=== PATIENT | female | born 1950 | race Caucasian/White ===

== ENCOUNTER → 2016-11-26 | Outpatient (CLI) | payer BC, OTHER ==
[~2016-11-26] MED LIST: ASPI81TA21 PO; CALCTAB7 PO; CHOL100027 PO; KONSYL FIBER PO; MOME50SP5; MULTTAB58 PO; TRAZ50TA35 PO; actonel PO
--- NOTE | 2016-11-26 15:58 | DIAGNOSTIC IMAGING REPORT ---
LEFT HAND 3 VIEWS CLINICAL HISTORY: Raynaud's disease. FINDINGS: 3 views of the left hand are compared to study dated 11/20/2014. The skeletal structures are osteopenic. No fracture is identified. Minimal osteoarthritic change is identified involving the distal interphalangeal joints. The joint spaces of the hand are otherwise preserved. No bony erosion is identified. The overlying soft tissues are within normal limits. IMPRESSION: Osteopenia with minimal arthritic change as above. No acute bony abnormality is identified. Electronically signed by: Shashi Carroll M.D. 11/26/2016 3:56 PM Dictated Date/Time: 11/26/2016 3:54 PM
--- NOTE | 2016-11-26 15:59 | DIAGNOSTIC IMAGING REPORT ---
RIGHT HAND 3 VIEWS CLINICAL HISTORY: Raynaud's disease. FINDINGS: 3 views of the right hand are obtained. No prior studies are available for comparison at the time of dictation. The skeletal structures are osteopenic. No fracture is identified. Minimal osteoarthritic change is identified involving the distal interphalangeal joints and the first metacarpophalangeal joint. The joint spaces of the hand are otherwise preserved. No bony erosion is identified. The overlying soft tissues are within normal limits. IMPRESSION: Osteopenia with minimal arthritic change as above. No acute bony abnormality is identified. Electronically signed by: Shashi Carroll M.D. 11/26/2016 3:57 PM Dictated Date/Time: 11/26/2016 3:56 PM
== END | disposition home or self-care (01) ==
LOC: C.RAD1850 15:42
PROVIDERS: ATTEND Internal Medicine Rheumatology
DX: I73.00 Raynaud's syndrome without gangrene (principal)

== ENCOUNTER → 2017-03-01 | Outpatient (CLI) | payer BC ==
--- NOTE | 2017-03-01 10:50 | DIAGNOSTIC IMAGING REPORT ---
L-SPINE MIN 4 VIEWS ROUTINE CLINICAL HISTORY: LOWER BACK PAIN COMPARISON STUDY: 06/08/2007 FINDINGS: Minor superior endplate deformities are felt to be old. No acute fractures are visualized. There is a grade 1 spondylolisthesis of L3 on L4. No destructive lesions are evident. IMPRESSION: 1. Grade 1 spondylolisthesis of L3 on L4 2. No acute fractures identified on conventional radiographic imaging Electronically signed by: Casey Queen M.D. 03/01/2017 10:48 AM Dictated Date/Time: 03/01/2017 10:47 AM
== END | disposition home or self-care (01) ==
LOC: C.RAD1850 10:14
PROVIDERS: ATTEND Family Medicine
DX: M54.5 Low back pain (principal); M81.0 Age-related osteoporosis without current pathological fracture; M43.16 Spondylolisthesis, lumbar region

== ENCOUNTER → 2017-07-15 | Outpatient (CLI) | payer BC, OTHER | END | disposition home or self-care (01) | LOC: C.MAMM 09:22 | PROVIDERS: ATTEND Internal Medicine Endocrinology, Diabetes & Metabolism | DX: M81.0 Age-related osteoporosis without current pathological fracture (principal) ==

== ENCOUNTER → 2017-10-13 | Outpatient (CLI) | payer BC, OTHER ==
--- NOTE | 2017-10-14 07:54 | MAMMOGRAPHY REPORT ---
BILATERAL DIGITAL SCREENING MAMMOGRAM TOMOSYNTHESIS WITH CAD: 10/13/2017 CLINICAL HISTORY: Routine screening. Patient has no complaints. TECHNIQUE: Breast tomosynthesis in addition to standard 2D mammography was performed. Current study was also evaluated with a Computer Aided Detection (CAD) system. COMPARISON: Comparison is made to exams dated: 09/09/2016 mammogram, 08/08/2015 mammogram, 06/15/2014 ma mmogram, 06/14/2013 mammogram, 05/24/2012 mammogram, and 05/19/2011 mammogram - [facility]. BREAST COMPOSITION: There are scattered areas of fibroglandular density in both breasts. FINDINGS: The parenchymal pattern is similar to prior mammograms. No developing mass, architectural distortion or cluster of suspicious microcalcifications is seen in either breast. IMPRESSION: ACR BI-RADS CATEGORY 2: BENIGN There is no mammographic evidence of malignancy. A 1 year screening mammogram is recommended. The pa tient will receive written notification of the results. Approximately 10% of breast cancers are not detected with mammography. A negative mammographic report should not delay biopsy if a clinically suggestive mass is present. Adriana Harmon M.D. ay/:10/13/2017 16:32:06 Endodontist: Kelly PERALES(Alexander)(Carissa), [facility] letter sent: Normal 1/2 BI-RADS Code: ACR BI-RADS Category 2: Benign
== END | disposition home or self-care (01) ==
LOC: C.MAMM 16:03
PROVIDERS: ATTEND Family Medicine
DX: Z12.31 Encounter for screening mammogram for malignant neoplasm of breast (principal)

== ENCOUNTER → 2017-10-19 | Day surgery (SDC) | payer BC, OTHER ==
[~2017-10-19] VITALS: Ht 162.6 cm; Wt 54.5 kg
[~2017-10-19] MED LIST changes: +CYAN100073; +GENERAL ORDER PROBLEM SCH; +HYDR12.55 PO; +VITACAP26; +ZOLEDRONIC ACID INJ 5 MG in EMPTY BAG 0 ML IV SCH; -actonel PO
[2017-10-19 15:04] VITALS: BP 112/77; PULSE 66; TEMP 36.3; O2SAT 93; Ht 162.6 cm; Wt 54.5 kg
== END | disposition home or self-care (01) ==
LOC: C.MTU 14:57
PROVIDERS: ATTEND Internal Medicine Endocrinology, Diabetes & Metabolism
DX: M81.0 Age-related osteoporosis without current pathological fracture (principal)

== ENCOUNTER → 2017-12-03 | Outpatient (CLI) | payer OTHER ==
[~2017-12-03] MED LIST changes: -GENERAL ORDER PROBLEM SCH; -KONSYL FIBER PO; +OPTIRAY 320 IV PRN; -ZOLEDRONIC ACID INJ 5 MG in EMPTY BAG 0 ML IV SCH
--- NOTE | 2017-12-03 12:43 | DIAGNOSTIC IMAGING REPORT ---
CT SCAN OF THE ABDOMEN AND PELVIS WITH IV CONTRAST CLINICAL HISTORY: Generalized abdominal pain. COMPARISON STUDY: Abdominal CT dated 11/21/2014. TECHNIQUE: Following the IV administration of 95 cc of Optiray 320, CT scan of the abdomen and pelvis is performed from the lung bases to the proximal femora. Images are reviewed in the axial, sagittal, and coronal planes. IV contrast was administered without complication. A dose lowering technique was utilized adhering to the principles of ALARA. CT DOSE: 291.50 mGycm FINDINGS: Lung bases: The heart is normal in size and without pericardial effusion. A 3 mm left lower lobe pulmonary nodule on image #13 is unchanged dating back to 2014 and of doubtful significance. The lung bases are otherwise clear noting dependent atelectasis. Liver: The contrast-enhanced liver is normal in size, contour, and attenuation. There is no intrahepatic biliary ductal dilatation. The hepatic veins and portal veins are patent. A subcentimeter hypodensity in the right lobe of liver on image #144 likely represents a cyst but is too small for definitive characterization. This was also seen in 2015. Gallbladder: Unremarkable. Spleen: Normal in size and attenuation. Pancreas: Unremarkable. Adrenal glands: Unremarkable. Kidneys: The contrast enhanced kidneys are normal in size and without hydronephrosis. The kidneys enhance symmetrically. Abdominal vasculature: The abdominal aorta is normal in course and caliber noting mild atherosclerotic calcification. Bowel: There is moderate sigmoid diverticulosis. There is wall thickening with pericolonic inflammation and fluid seen involving the proximal sigmoid colon consistent with acute diverticulitis. No evidence of abscess is seen. Moderate colonic fecal retention is observed. No bowel obstruction is identified. The appendix is well-visualized and normal. Peritoneum: There is no intraperitoneal free air or abdominal ascites. Lymphadenopathy: None. Pelvic viscera: The bladder, uterus, and adnexa are normal as visualized. A small volume of free fluid is present in the cul-de-sac. Skeletal structures: The skeletal structures are osteopenic. Mild lumbosacral spondylosis is observed. No lytic or blastic lesions are seen. IMPRESSION: 1. Colonic diverticulosis with evidence of acute sigmoid diverticulitis. 2. No intraperitoneal free air is seen and there is no evidence of abscess. 3. A small volume of free fluid in the cul-de-sac is likely on a reactive basis. 4. Additional findings as above. Electronically signed by: Shashi Carroll M.D. 12/03/2017 12:42 PM Dictated Date/Time: 12/03/2017 12:36 PM
== END | disposition home or self-care (01) ==
LOC: C.CTS 11:34
PROVIDERS: ATTEND Family Medicine
DX: K57.30 Diverticulosis of large intestine without perforation or abscess without bleeding (principal)

== ENCOUNTER 2022-08-04 02:49 | Inpatient (IN) ==
[2022-08-04 03:37] LABS: Appearance Urine Cloudy (Clear); Bacteria Urine Automated Negative (Negative); Bilirubin Urine Negative (Negative); Blood Urine Trace (Negative); Cast Urine Automated 0 /lpf (0-5); Color Urine Yellow; Epithelial Cell Urine Auto 20-30 /lpf (0-5); Glucose Urine UA Negative (Negative); Ketones Urine Trace (Negative); Leukocyte Esterase Urine Trace (Negative); Nitrite Urine Negative (Negative); RBC Urine Automated 0-4 /hpf (0-4); Specific Gravity Urine 1.011 (1.000-1.030); Urobilinogen Urine Negative (Negative); pH Urine 7.5 (4.5-7.5)
[2022-08-04 03:39] LABS: Protein Urine Trace (Negative)
[2022-08-04 03:51] LABS: POC Urine Bilirubin 1+ (Negative); POC Urine Blood 50 (Negative); POC Urine Glucose Normal (Normal); POC Urine Ketones 1+ (Small) (Negative); POC Urine Leukocytes Trace (Negative); POC Urine Nitrite Negative (Negative); POC Urine Protein Trace (Negative); POC Urine Urobilinogen Normal (Normal); POC Urine pH 6 (4.5-7.5)
[2022-08-04 04:12] LABS: Basophils # (auto) 0.03 K/uL (0-0.2); Basophils % (auto) 0.4 %; Eosinophils # (auto) 0.02 K/uL (0-0.50); Eosinophils % (auto) 0.3 %; Hematocrit (blood only) 30.6 % (34.1-44.9); Hemoglobin 10.7 g/dl (12.0-16.0); Immature Granulocytes # (auto) 0.02 K/uL (0.00-0.02); Immature Granulocytes % (auto) 0.3 %; Lymphocytes # (auto) 0.51 K/uL (1.2-3.4); Lymphocytes % (auto) 7.2 %; Mean Corpuscular Hemoglobin 29.7 pg (25.0-34.0); Mean Platelet Volume 8.7 fL (9.4-12.3); Monocytes # (auto) 0.67 K/uL (0.24-0.82); Monocytes % (auto) 9.5 %; Neutrophils # (auto) 5.81 K/uL (1.4-6.5); Neutrophils % (auto) 82.3 %; Platelet Count 169 K/uL (130-400); RDW Coefficient of Variation 12.6 % (11.5-14.5); White Blood Count 7.06 K/ul (4.8-10.8)
[2022-08-04] MEDS ORDERED: ACETAMINOPHEN 325 MG TAB PO STA (04:25)
[2022-08-04 04:36] LABS: Albumin Level 3.7 gm/dl (3.4-5.0); BUN Creatinine Ratio 11.2 (10-20); Bilirubin Direct 0.1 mg/dl (0-0.2); Bilirubin,Total 0.5 mg/dl (0.2-1.0); Calcium 8.6 mg/dl (8.5-10.1); Creatinine Clr Calc Pharmacy 47.5 ml/min; Est GFR (African American) 76.1 ml/min; Est GFR (Non-African American) 65.7 ml/min; Magnesium 1.9 mg/dl (1.7-2.4); Potassium 4.1 mmol/L (3.5-5.1); Total Protein 6.9 gm/dl (6.0-8.3)
[2022-08-04 04:41] LABS: Troponin I High Sensitivity 4.9 pg/ml (0-14)
[2022-08-04] MEDS ORDERED: SODIUM CHLORIDE 0.9% 1000ML 1,000 ML IV ONE (05:20)
[2022-08-04] MEDS ORDERED: cefTRIAXone SODIUM 1,000 MG/50 ML BAG IV STA (05:26)
--- NOTE | 2022-08-04 07:14 | Emergency Department Note ---
Impression & Plan Acute hyponatremia, Cystitis Admit to the [facility] ED Provider Note NAME: YANELI HAILE AGE: 72 SEX: F ARRIVES VIA: Walk-In INFORMANT: Patient and her ED PROVIDER(S): Ana Mendoza DO CHIEF COMPLAINT: Back pain and fever PLAN: Disposition: Admit to the [facility] Condition: Stable MEDICAL DECISION MAKING: This is a 72-year-old female patient who was diagnosed with a urinary tract infection who presents emergency department with backache and fever. Preliminary urine culture grew out greater than 100,000 colonies of lactose fermenting gram-negative bacilli. Patient has had a total of 4 doses of Bactrim. She presents to the emergency department with a fever. She has no leukocytosis and lactate and procalcitonin were normal but CT scan shows evidence of cystitis with signs of infection in ascending the left ureter. The patient received a dose of IV Rocephin. She was noted to be hypotensive but states that her blood pressure is typically in the high 90s and low 100s. The patient was noted to be hyponatremic and received a 1500 cc bolus of normal saline solution and was placed on a normal saline drip. I discussed the case with the [facility] and they will evaluate for further management. Triage Nursing notes reviewed and agree with them. Additional history obtained from the patient's who is at the bedside Vital Signs: reviewed and remarkable for no significant abnormalities Differential diagnosis: Sepsis, cystitis, pyelonephritis, ureteral colic ER treatment provided: IV Rocephin Oral Tylenol IV normal saline bolus IV normal saline drip Diagnostics interpreted by me: Cardiac Monitoring: Normal sinus rhythm at 85 Laboratory studies: See below Imaging studies: As per radiology CT scan of the abdomen pelvis: See radiology report HPI: 72/F arrives for evaluation of back pain and fever. Patient was diagnosed 2 days ago with UTI and started on Bactrim. He has had 4 total doses of the Bactrim but presents with left-sided back pain and persistent fever. Patient also complains of nausea and decreased appetite. ROS: See above HPI for pertinent positives & negatives. A total of 10 systems reviewed and were otherwise negative. PAST MEDICAL HISTORY:See Below PAST SURGICAL HISTORY:See Below FAMILY HISTORY:See Below SOCIAL HISTORY:See Below HOME MEDICATIONS:See list ALLERGIES:See list VITALS:See Below PHYSICAL EXAMINATION: HEENT: Head - normocephalic and atraumatic Pupils are equal, round, and reactive to light. Extraocular eye muscles are intact, and sclera are anicteric. Nose - moist nasal mucosa without discharge. Mouth - moist buccal mucosa. Oropharynx is nonerythematous and there is no tonsillar exudate or edema noted. Neck: Supple; no cervical lymphadenopathy noted Heart: Regular rate and rhythm. There is a normal S1 and S2 with no murmurs, clicks, or gallops appreciated. Lungs: Clear to auscultation bilaterally with no wheezes, rales, or rhonchi. Abdomen: Soft, completely nontender, nondistended, with good bowel sounds. There are no palpable pulsatile masses or hepatosplenomegaly. There is no guarding, rigidity, or rebound noted. Extremities: No evidence of cyanosis, clubbing, or edema. There are easily palpable peripheral pulses. Skin: Pale, warm and dry with good turgor and no rashes. Back: Left-sided back pain is greater than the right ED COURSE: Times/Reassessments: 430: The patient was evaluated in room C10. A complete history and physical was performed. A septic protocol was performed. Patient was bolused with 1 L of normal saline solution wide open. An order was placed for continuous cardiac monitoring. The patient was in a normal sinus rhythm at a rate of 85. She was given a dose of oral Tylenol. She was given a dose of IV Rocephin. The patient went for CT scan of the abdomen/pelvis as described above. She was given another 500 cc of normal saline solution wide open as she was hyponatremic and started on a normal saline drip. I discussed the case with the [facility] Hospitalist. Ana Mendoza DO Past Med/Surg History Medical History (Updated 08/04/22 @ 15:52 by Ana Mendoza DO) Age related osteoporosis Back problem HERNIATED DISC LUMBAR SPINE Chronic obstructive pulmonary disease "MILD" History of uterine cancer Mild asthma with allergic rhinitis without complication Raynaud disease Vitamin D deficiency Surgical History History of colonoscopy History of D&C History of tooth extraction Hx of total hysterectomy with removal of both tubes and ovaries uterine cancer, surgical intervention only Family History Mother Breast cancer Brother Family history of diabetes mellitus Sister Family history of colon cancer Other No family history of adverse response to anesthesia Denies family history of Ovarian cancer Colorectal cancer Uterine cancer Social History Smoking Status: Former smoker Second Hand Exposure: Yes ( A CHILD); Hx Alcohol Use: Yes Alcohol type: wine Hx Substance Use: No Preferred Language: Chinese Communication Ability: Effective 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 Verified 01/05/22 07:29 MEDICATION NAME, 1986 - FACE SWOLLEN , HIVES Home Meds Home Medications Medication Instructions Recorded Confirmed aspirin 81 mg tablet,delayed 81 mg PO UD 08/22/19 01/02/22 release (Adult Low Dose Aspirin) cholecalciferol (vitamin D3) 50 2,000 units PO QAM 08/22/19 01/02/22 mcg (2,000 unit) capsule melatonin 5 mg capsule 10 mg PO HS PRN Sleep 08/22/19 01/02/22 multivitamin 1 tab PO DAILY 08/22/19 01/02/22 trazodone 50 mg tablet 50 mg PO HS 08/22/19 01/02/22 cyanocobalamin (vitamin B-12) 1,000 mcg PO QAM 04/23/20 01/02/22 1,000 mcg tablet methylcellulose (laxative) 500 mg 500 mg PO DAILY 02/26/21 01/02/22 tablet (Citrucel) hydrochlorothiazide 12.5 mg tablet 6.25 mg PO QAM 07/01/21 01/02/22 Previous Rx's Medication Instructions Recorded zoledronic acid 5 mg/100 mL in See Rx Instructions IV .COMPLEX 08/31/19 mannitol 5 %-water intravenous #100 mL piggybck (Reclast) fluticasone propionate 115 1 puff inhalation BID #12 grams 05/13/21 mcg-salmeterol 21 mcg/actuation HFA inhaler (Advair HFA) Results & Data (ED) Vital Signs Vital Signs - 24 hr 08/04/22 02:54 08/04/22 04:30 08/04/22 05:00 Temperature 39.5 C H Temperature Source Temporal Artery Scan Pulse Rate 97 H 85 90 Pulse Rate from SpO2 Sensor 85 Respiratory Rate 20 23 20 Respiratory Effort / Characteristics Non-Labored Spontaneous Respiratory Depth Normal Blood Pressure 126/76 104/68 103/73 Blood Pressure Mean 92 80 83 Pulse Oximetry 98 96 96 Oxygen Delivery Method Room Air Room Air Room Air Sepsis Recent Fever Within 48 Hours Yes Sepsis New/Unexplained Change in Mental Status Yes Sepsis Action Taken by Nursing No Action Required 08/04/22 05:26 08/04/22 06:00 08/04/22 06:00 Temperature 37.4 C Temperature Source Oral Pulse Rate 81 87 Pulse Rate from SpO2 Sensor Respiratory Rate 24 23 Respiratory Effort / Characteristics Respiratory Depth Blood Pressure 92/67 L 95/61 L Blood Pressure Mean 75 72 Pulse Oximetry 95 97 Oxygen Delivery Method Room Air Room Air Sepsis Recent Fever Within 48 Hours Sepsis New/Unexplained Change in Mental Status Sepsis Action Taken by Nursing 08/04/22 03:45 08/04/22 07:00 08/04/22 07:00 Temperature Temperature Source Pulse Rate 76 Pulse Rate from SpO2 Sensor Respiratory Rate 24 Respiratory Effort / Characteristics Respiratory Depth Blood Pressure 96/64 L Blood Pressure Mean 74 Pulse Oximetry Oxygen Delivery Method Room Air Sepsis Recent Fever Within 48 Hours Sepsis New/Unexplained Change in Mental Status Sepsis Action Taken by Nursing 08/04/22 07:10 08/04/22 07:20 08/04/22 08:09 Temperature Temperature Source Pulse Rate 77 74 Pulse Rate from SpO2 Sensor 78 76 72 Respiratory Rate 22 21 Respiratory Effort / Characteristics Respiratory Depth Blood Pressure Blood Pressure Mean Pulse Oximetry 96 97 97 Oxygen Delivery Method Room Air Room Air Room Air Sepsis Recent Fever Within 48 Hours Sepsis New/Unexplained Change in Mental Status Sepsis Action Taken by Nursing 08/04/22 08:10 08/04/22 08:11 08/04/22 08:12 Temperature Temperature Source Pulse Rate Pulse Rate from SpO2 Sensor 75 76 Respiratory Rate Respiratory Effort / Characteristics Respiratory Depth Blood Pressure 97/58 L Blood Pressure Mean 71 Pulse Oximetry 98 96 Oxygen Delivery Method Room Air Sepsis Recent Fever Within 48 Hours Sepsis New/Unexplained Change in Mental Status Sepsis Action Taken by Nursing 08/04/22 08:15 08/04/22 08:30 Temperature Temperature Source Pulse Rate Pulse Rate from SpO2 Sensor 73 77 Respiratory Rate Respiratory Effort / Characteristics Respiratory Depth Blood Pressure Blood Pressure Mean Pulse Oximetry 97 98 Oxygen Delivery Method Room Air Room Air Sepsis Recent Fever Within 48 Hours Sepsis New/Unexplained Change in Mental Status Sepsis Action Taken by Nursing Laboratory Data Result diagrams: 08/04/22 04:00 08/04/22 04:00 Lab Results 08/04/22 08/04/22 08/04/22 Range/Units 03:13 03:17 04:00 WBC 7.06 (4.8-10.8) K/ul RBC 3.60 L (3.93-5.22) M/uL Hgb 10.7 L (12.0-16.0) g/dl Hct 30.6 L (34.1-44.9) % MCV 85.0 (80.0-100.0) fL MCH 29.7 (25.0-34.0) pg MCHC 35.0 (32.0-36.0) g/dL RDW Std Deviation 39.0 (36.4-46.3) fL RDW Coeff of [place] 12.6 (11.5-14.5) % Plt Count 169 (130-400) K/uL MPV 8.7 L (9.4-12.3) fL Immature Gran % (Auto) 0.3 % Neut % (Auto) 82.3 % Lymph % (Auto) 7.2 % [place] % (Auto) 9.5 % Eos % (Auto) 0.3 % Baso % (Auto) 0.4 % Neut # (Auto) 5.81 (1.4-6.5) K/uL Lymph # (Auto) 0.51 L (1.2-3.4) K/uL [place] # (Auto) 0.67 (0.24-0.82) K/uL Eos # (Auto) 0.02 (0-0.50) K/uL Baso # (Auto) 0.03 (0-0.2) K/uL Immature Gran # (Auto) 0.02 (0.00-0.02) K/uL Sodium (136-145) mmol/L Potassium (3.5-5.1) mmol/L Chloride (98-107) mmol/L Carbon Dioxide (21-32) mmol/L Anion Gap (3-11) BUN (6-23) mg/dl Creatinine (0.6-1.2) mg/dl Est Cr Clr Drug Dosing ml/min Est GFR ( Amer) ml/min Est GFR (Non-Af Amer) ml/min BUN/Creatinine Ratio (10-20) Glucose (70-99(Fasting)) mg/dl Lactate (0.4-2.0) mmol/L Calcium (8.5-10.1) mg/dl Magnesium (1.7-2.4) mg/dl Total Bilirubin (0.2-1.0) mg/dl Direct Bilirubin (0-0.2) mg/dl AST (13-39) U/L ALT (7-52) U/L Alkaline Phosphatase (34-104) U/L Troponin I High Sens (0-14) pg/ml Total Protein (6.0-8.3) gm/dl Albumin (3.4-5.0) gm/dl Procalcitonin (0-0.5) ng/ml Urine Color Yellow Urine Appearance Cloudy A (Clear) Urine pH 7.5 (4.5-7.5) POC Urine pH 6 (4.5-7.5) Ur Specific Hibbs 1.011 (1.000-1.030) Urine Protein Trace H (Negative) POC Urine Protein Trace H (Negative) Urine Glucose (UA) Negative (Negative) POC Ur Glucose (UA) Normal (Normal) Urine Ketones Trace H (Negative) POC Urine Ketones 1+ (Small) H (Negative) Urine Blood Trace H (Negative) POC Urine Blood 50 H (Negative) Urine Nitrite Negative (Negative) POC Urine Nitrite Negative (Negative) Urine Bilirubin Negative (Negative) POC Urine Bilirubin 1+ H (Negative) Urine Urobilinogen Negative (Negative) POC Urine Urobilinogen Normal (Normal) Ur Leukocyte Esterase Trace H (Negative) POC U Leukocyte Esteras Trace H (Negative) Urine WBC (Auto) 10-30 H (0-5) /hpf Urine RBC (Auto) 0-4 (0-4) /hpf U Hyaline Cast (Auto) 0 (0-5) /lpf U Epithel Cells (Auto) 20-30 H (0-5) /lpf Urine Bacteria (Auto) Negative (Negative) SARS-CoV-2, RNA, NAAT (NEGATIVE) 08/04/22 08/04/22 08/04/22 Range/Units 04:00 04:00 04:00 WBC (4.8-10.8) K/ul RBC (3.93-5.22) M/uL Hgb (12.0-16.0) g/dl Hct (34.1-44.9) % MCV (80.0-100.0) fL MCH (25.0-34.0) pg MCHC (32.0-36.0) g/dL RDW Std Deviation (36.4-46.3) fL RDW Coeff of [place] (11.5-14.5) % Plt Count (130-400) K/uL MPV (9.4-12.3) fL Immature Gran % (Auto) % Neut % (Auto) % Lymph % (Auto) % [place] % (Auto) % Eos % (Auto) % Baso % (Auto) % Neut # (Auto) (1.4-6.5) K/uL Lymph # (Auto) (1.2-3.4) K/uL [place] # (Auto) (0.24-0.82) K/uL Eos # (Auto) (0-0.50) K/uL Baso # (Auto) (0-0.2) K/uL Immature Gran # (Auto) (0.00-0.02) K/uL Sodium 129 L (136-145) mmol/L Potassium 4.1 (3.5-5.1) mmol/L Chloride 102 (98-107) mmol/L Carbon Dioxide 20 L (21-32) mmol/L Anion Gap 7 (3-11) BUN 10 (6-23) mg/dl Creatinine 0.89 (0.6-1.2) mg/dl Est Cr Clr Drug Dosing 47.5 ml/min Est GFR ( Amer) 76.1 ml/min Est GFR (Non-Af Amer) 65.7 ml/min BUN/Creatinine Ratio 11.2 (10-20) Glucose 119 H (70-99(Fasting)) mg/dl Lactate 0.4 (0.4-2.0) mmol/L Calcium 8.6 (8.5-10.1) mg/dl Magnesium 1.9 (1.7-2.4) mg/dl Total Bilirubin 0.5 (0.2-1.0) mg/dl Direct Bilirubin 0.1 (0-0.2) mg/dl AST 53 H (13-39) U/L ALT 38 (7-52) U/L Alkaline Phosphatase 64 (34-104) U/L Troponin I High Sens 4.9 (0-14) pg/ml Total Protein 6.9 (6.0-8.3) gm/dl Albumin 3.7 (3.4-5.0) gm/dl Procalcitonin 0.15 (0-0.5) ng/ml Urine Color Urine Appearance (Clear) Urine pH (4.5-7.5) POC Urine pH (4.5-7.5) Ur Specific Hibbs (1.000-1.030) Urine Protein (Negative) POC Urine Protein (Negative) Urine Glucose (UA) (Negative) POC Ur Glucose (UA) (Normal) Urine Ketones (Negative) POC Urine Ketones (Negative) Urine Blood (Negative) POC Urine Blood (Negative) Urine Nitrite (Negative) POC Urine Nitrite (Negative) Urine Bilirubin (Negative) POC Urine Bilirubin (Negative) Urine Urobilinogen (Negative) POC Urine Urobilinogen (Normal) Ur Leukocyte Esterase (Negative) POC U Leukocyte Esteras (Negative) Urine WBC (Auto) (0-5) /hpf Urine RBC (Auto) (0-4) /hpf U Hyaline Cast (Auto) (0-5) /lpf U Epithel Cells (Auto) (0-5) /lpf Urine Bacteria (Auto) (Negative) SARS-CoV-2, RNA, NAAT (NEGATIVE) 08/04/22 Range/Units 08:36 WBC (4.8-10.8) K/ul RBC (3.93-5.22) M/uL Hgb (12.0-16.0) g/dl Hct (34.1-44.9) % MCV (80.0-100.0) fL MCH (25.0-34.0) pg MCHC (32.0-36.0) g/dL RDW Std Deviation (36.4-46.3) fL RDW Coeff of [place] (11.5-14.5) % Plt Count (130-400) K/uL MPV (9.4-12.3) fL Immature Gran % (Auto) % Neut % (Auto) % Lymph % (Auto) % [place] % (Auto) % Eos % (Auto) % Baso % (Auto) % Neut # (Auto) (1.4-6.5) K/uL Lymph # (Auto) (1.2-3.4) K/uL [place] # (Auto) (0.24-0.82) K/uL Eos # (Auto) (0-0.50) K/uL Baso # (Auto) (0-0.2) K/uL Immature Gran # (Auto) (0.00-0.02) K/uL Sodium (136-145) mmol/L Potassium (3.5-5.1) mmol/L Chloride (98-107) mmol/L Carbon Dioxide (21-32) mmol/L Anion Gap (3-11) BUN (6-23) mg/dl Creatinine (0.6-1.2) mg/dl Est Cr Clr Drug Dosing ml/min Est GFR ( Amer) ml/min Est GFR (Non-Af Amer) ml/min BUN/Creatinine Ratio (10-20) Glucose (70-99(Fasting)) mg/dl Lactate (0.4-2.0) mmol/L Calcium (8.5-10.1) mg/dl Magnesium (1.7-2.4) mg/dl Total Bilirubin (0.2-1.0) mg/dl Direct Bilirubin (0-0.2) mg/dl AST (13-39) U/L ALT (7-52) U/L Alkaline Phosphatase (34-104) U/L Troponin I High Sens (0-14) pg/ml Total Protein (6.0-8.3) gm/dl Albumin (3.4-5.0) gm/dl Procalcitonin (0-0.5) ng/ml Urine Color Urine Appearance (Clear) Urine pH (4.5-7.5) POC Urine pH (4.5-7.5) Ur Specific [place] (1.000-1.030) Urine Protein (Negative) POC Urine Protein (Negative) Urine Glucose (UA) (Negative) POC Ur Glucose (UA) (Normal) Urine Ketones (Negative) POC Urine Ketones (Negative) Urine Blood (Negative) POC Urine Blood (Negative) Urine Nitrite (Negative) POC Urine Nitrite (Negative) Urine Bilirubin (Negative) POC Urine Bilirubin (Negative) Urine Urobilinogen (Negative) POC Urine Urobilinogen (Normal) Ur Leukocyte Esterase (Negative) POC U Leukocyte Esteras (Negative) Urine WBC (Auto) (0-5) /hpf Urine RBC (Auto) (0-4) /hpf U Hyaline Cast (Auto) (0-5) /lpf U Epithel Cells (Auto) (0-5) /lpf Urine Bacteria (Auto) (Negative) SARS-CoV-2, RNA, NAAT NEGATIVE (NEGATIVE) Administered Medications Cyanocobalamin (Cyanocobalamin (B-12) 500 Mcg Tablet) 1,000 mcg PO QAM CHANTELL Stop: 09/03/22 12:59 Last Admin: 08/04/22 13:35 Dose: 1,000 mcg Documented By: CLAUDE Enoxaparin Sodium (Enoxaparin Inj 30 Mg/0.3 Ml Syr) 30 mg SQ Q24H CHANTELL Stop: 09/03/22 12:59 Last Admin: 08/04/22 14:14 Dose: Not Given Documented By: CLAUDE Fluticasone/Vilanterol (Fluticasone/Vilanterol 100/25mcg 14 Puffs/Inhaler) 1 puffs INH DAILY CHANTELL Stop: 09/03/22 13:29 Last Admin: 08/04/22 13:42 Dose: Not Given Documented By: CLAUDE Hydrochlorothiazide (Hydrochlorothiazide 25 Mg Tab) 6.25 mg PO QAM CHANTELL Stop: 09/03/22 12:59 Last Admin: 08/04/22 14:15 Dose: 6.25 mg Documented By: CLAUDE Sodium Chloride (Nss) 500 mls @ 125 mls/hr IV .Q4H CHANTELL Stop: 09/03/22 08:44 Last Admin: 08/04/22 13:13 Dose: 125 mls/hr Documented By: Infusion: 08/04/22 13:12 Dose: 0 mls/hr Documented By: Admin: 08/04/22 09:12 Dose: 125 mls/hr Documented By: CLAUDE Multivitamins (Multivitamin Tab) 1 tab PO DAILY CHANTELL Stop: 09/03/22 12:59 Last Admin: 08/04/22 14:14 Dose: 1 tab Documented By: CLAUDE Vitamin D (Cholecalciferol 1,000 Units 25 Mcg Tab) 2,000 units PO QAM CHANTELL Stop: 09/03/22 12:59 Last Admin: 08/04/22 13:35 Dose: 2,000 units Documented By: CLAUDE Discontinued Medications Acetaminophen (Acetaminophen 325 Mg Tab) 650 mg PO NOW STA Stop: 08/04/22 04:26 Last Admin: 08/04/22 04:36 Dose: 650 mg Documented By: KAYLEEN Sodium Chloride (Nss 1000ml) 1,000 mls @ 999 mls/hr IV .Q1H1M ONE Stop: 08/04/22 06:20 Last Infusion: 08/04/22 06:34 Dose: 0 mls/hr Documented By: Admin: 08/04/22 05:33 Dose: 999 mls/hr Documented By: KAYLEEN Ceftriaxone Sodium (Rocephin) 1,000 mg in 50 mls @ 100 mls/hr IV NOW STA Stop: 08/04/22 05:55 Last Infusion: 08/04/22 06:29 Dose: 0 mls/hr Documented By: Admin: 08/04/22 05:59 Dose: 100 mls/hr Documented By: KAYLEEN Sodium Chloride (Nss) 500 mls @ 999 mls/hr IV .Q31M ONE Stop: 08/04/22 07:52 Last Infusion: 08/04/22 08:40 Dose: 0 mls/hr Documented By: Admin: 08/04/22 08:09 Dose: 999 mls/hr Documented By: CLAUDE Imaging Data Radiologist's Impression: Chest X-Ray 08/04/22 03:45 XR chest 1V portable CLINICAL HISTORY: Sepsis. COMPARISON STUDY: Chest radiograph August 15, 2018. Chest CT September 27, 2018. FINDINGS: Lung volumes are normal. Lungs are clear. There is no pneumothorax or pleural effusion. Cardiac size is normal. Mediastinal contours are normal. There is no evidence for pulmonary edema. IMPRESSION: No acute cardiopulmonary findings. ACT 112: Negative or not required by law. Electronically signed by: Felix Thomas M.D. 08/04/2022 7:11 AM Abdomen/Pelvis CT 08/04/22 06:45 CT SCAN OF THE ABDOMEN AND PELVIS WITHOUT IV CONTRAST CLINICAL HISTORY: Back pain. Dysuria. COMPARISON STUDY: Abdominal CT dated 12/03/2017. TECHNIQUE: CT scan of the abdomen and pelvis is performed from the lung bases to the proximal femora. Images are reviewed in the axial, sagittal, and coronal planes. IV contrast was not administered for this examination. A dose lowering technique was utilized adhering to the principles of ALARA. CT DOSE: 266.33 mGy.cm FINDINGS: Lung bases: The heart is normal in size and without pericardial effusion. 3 mm left lower lobe pulmonary nodule on image #27 is unchanged. A calcified granuloma is seen at the right lung base. There are trace pleural effusions with dependent atelectasis. There is a small hiatal hernia. Liver: The unenhanced liver is normal in size, contour, and attenuation. There is no intrahepatic biliary ductal dilatation. Gallbladder: Suspect cholelithiasis. There is no CT evidence of acute valeriano cystitis. Spleen: Normal in size and attenuation. Pancreas: The unenhanced pancreas is grossly unremarkable. Adrenal glands: Unremarkable. Kidneys: The unenhanced kidneys are normal in size and without hydronephrosis. No renal calculi are identified. There is mild fullness of the left renal mindy ecting system. Urothelial thickening is noted in the left ureter and the left renal pelvis. There is left-sided perinephric stranding and trace fluid. There is no evidence of contour deforming renal mass lesion. Abdominal vasculature: The abdominal aorta is normal in course and caliber noting mild to moderate atherosclerotic calcification. Bowel: There is moderate colonic diverticulosis without CT evidence of acute diverticulitis. No bowel obstruction is seen. There is mild to moderate colonic fecal retention. The appendix is well-visualized and normal. Peritoneum: There is a small volume of free fluid in the pelvis. No intraperitoneal free air is seen. Lymphadenopathy: None. Pelvic viscera: The bladder is distended and appears thick-walled. There is mild pericystic infiltration. The uterus is surgically absent. No adnexal lesion is seen. Skeletal structures: The skeletal structures are osteopenic. Mild lumbosacral spondylosis is observed. No lytic or blastic lesions are seen. IMPRESSION: 1. Findings suggest cystitis with ascending urinary tract infection on the left. Correlate with clinical findings and urinalysis. 2. There is a small volume of free fluid in the pelvis. 3. Moderate colonic diverticulosis without CT evidence of acute diverticulitis. 4. Trace pleural effusions. 5. Additional findings as above. ACT 112: Negative or not required by law. Electronically signed by: Shashi Carroll M.D. 08/04/2022 8:08 AM Discharge Plan Visit Data Chief Complaint: Illness Stated Complaint: ACHES/PAINS LWR BACK,FEVER - UTI/KIDNEY ED Provider: Ana Mendoza Discharge Problem: Acute hyponatremia, Cystitis Patient Disposition: Admitted As Inpatient Discharge Instructions Interventions: ED Discharge Assessment Last Done: 08/04/22 12:10
[2022-08-04] MEDS ORDERED: SODIUM CHLORIDE 0.9% 500 ML IV ONE (07:22)
--- NOTE | 2022-08-04 08:10 | CT Scan Report ---
CT SCAN OF THE ABDOMEN AND PELVIS WITHOUT IV CONTRAST CLINICAL HISTORY: Back pain. Dysuria. COMPARISON STUDY: Abdominal CT dated 12/03/2017. TECHNIQUE: CT scan of the abdomen and pelvis is performed from the lung bases to the proximal femora. Images are reviewed in the axial, sagittal, and coronal planes. IV contrast was not administered for this examination. A dose lowering technique was utilized adhering to the principles of ALARA. CT DOSE: 266.33 mGy.cm FINDINGS: Lung bases: The heart is normal in size and without pericardial effusion. 3 mm left lower lobe pulmon mary nodule on image #27 is unchanged. A calcified granuloma is seen at the right lung base. There are trace pleural effusions with dependent atelectasis. There is a small hiatal hernia. Liver: The unenhanced liver is normal in size, contour, and attenuation. There is no intrahepatic deborah iary ductal dilatation. Gallbladder: Suspect cholelithiasis. There is no CT evidence of acute cholecystitis. Spleen: Normal in size and attenuation. Pancreas: The unenhanced pancreas is grossly unremarkable. Adrenal glands: Unremarkable. Kidneys: The unenhanced kidneys are normal in size and without hydronephrosis. No renal calculi are i dentified. There is mild fullness of the left renal collecting system. Urothelial thickening is noted in the left ureter and the left renal pelvis. There is left-sided perinephric stranding and trace fl uid. There is no evidence of contour deforming renal mass lesion. Abdominal vasculature: The abdominal aorta is normal in course and caliber noting mild to moderate at herosclerotic calcification. Bowel: There is moderate colonic diverticulosis without CT evidence of acute diverticulitis. No bowel obstruction is seen. There is mild to moderate colonic fecal retention. The appendix is well-visual ized and normal. Peritoneum: There is a small volume of free fluid in the pelvis. No intraperitoneal free air is seen. Lymphadenopathy: None. Pelvic viscera: The bladder is distended and appears thick-walled. There is mild pericystic infiltrat ion. The uterus is surgically absent. No adnexal lesion is seen. Skeletal structures: The skeletal structures are osteopenic. Mild lumbosacral spondylosis is observed . No lytic or blastic lesions are seen. IMPRESSION: 1. Findings suggest cystitis with ascending urinary tract infection on the left. Correlate with clini james findings and urinalysis. 2. There is a small volume of free fluid in the pelvis. 3. Moderate colonic diverticulosis without CT evidence of acute diverticulitis. 4. Trace pleural effusions. 5. Additional findings as above. ACT 112: Negative or not required by law. Electronically signed by: Shashi Carroll M.D. 08/04/2022 8:08 AM
[2022-08-04] MEDS: SODIUM CHLORIDE 0.9% 500 ML IV SCH ×3 (09:12→18:04)
[2022-08-04] MEDS ORDERED: ONDANSETRON INJ 2 MG/ML 2 ML VIAL IV PRN (12:07)
[2022-08-04] MEDS ORDERED: MAGNESIUM HYDROXIDE SUSP 30 ML UDC PO PRN (12:07)
[2022-08-04] MEDS ORDERED: ALUMINUM/MAGNESIUM SUSP 30 ML UDC PO PRN (12:07)
[2022-08-04] MEDS ORDERED: ACETAMINOPHEN 325 MG TAB PO PRN (12:07)
[2022-08-04] MEDS ORDERED: POLYETHYLENE (MIRALAX) 17 GM PACK PO PRN (12:07)
[2022-08-04] MEDS ORDERED: MELATONIN 3 MG TAB PO PRN (12:58)
[2022-08-04] MEDS: CYANOCOBALAMIN (B-12) 500 MCG TABLET PO SCH (13:35)
[2022-08-04] MEDS: CHOLECALCIFEROL 1,000 UNITS 25 MCG TAB PO SCH (13:35)
[2022-08-04] MEDS: FLUTICASONE/VILANTEROL 100/25MCG 14 PUFFS/INHALER INH SCH (13:42)
[2022-08-04] MEDS: ENOXAPARIN INJ 30 MG/0.3 ML SYR SQ SCH (14:14)
[2022-08-04] MEDS: MULTIVITAMIN TAB PO SCH (14:14)
[2022-08-04] MEDS: hydroCHLOROthiazide 25 MG TAB PO SCH (14:15)
--- NOTE | 2022-08-04 18:07 | History & Physical Report ---
Date of Service August 04, 2022 Assessment & Plan (1) Cystitis: Plan: While she does not quite have pyelonephritis, her cystitis with a sending features of flank pain and inflammation on CT scan definitely suggest she is at risk for deteriorating into pyelonephritis without more aggressive treatment. I suspect she probably has bacteria resistant to her initial line of treatment, although it may simply be that the initial line of treatment has not had enough time to take effect. Either way we will continue the ceftriaxone initiated in the ER, and await urine cultures from the outpatient clinic, as well as follow blood cultures drawn this morning. Continue supportive care. (2) DVT prophylaxis: Plan: lovenox (3) Discharge planning issues: Plan: admit [facility] hospitalists. anticipate ability to go home once doing better // sensitivities have returned to allow for more reliable outpt treatment Admission and Anticipated Discharge Date Admission Date: August 04, 2022 History of Present Illness Chief Complaint: Fever/urinary symptoms Primary Care Provider: Wayne Johns MD Patient is a very pleasant 72-year-old female who presents with refractory urinary symptoms. She had cystitis symptoms, was treated as an outpatient with antibiotics, was not improving, continuing to have fevers, called PCPdirected to ER. She also notes some left flank pain. Otherwise she feels okay. Review of systems otherwise negative except for as above Allergies Allergy/AdvReac Type Severity Reaction Status Date / Time alendronate sodium Allergy Intermediate HEART Verified 01/05/22 07:29 BEATS REALLY FAST MUSCLE RELAXER Allergy Intermediate ? Verified 01/05/22 07:29 MEDICATION NAME, 1986 - FACE SWOLLEN , HIVES Home Medications Medication Instructions Recorded Confirmed Type aspirin 81 mg tablet,delayed 81 mg PO UD 08/22/19 01/02/22 History release (Adult Low Dose Aspirin) cholecalciferol (vitamin D3) 50 2,000 units PO QAM 08/22/19 01/02/22 History mcg (2,000 unit) capsule melatonin 5 mg capsule 10 mg PO HS PRN Sleep 08/22/19 01/02/22 History multivitamin 1 tab PO DAILY 08/22/19 01/02/22 History trazodone 50 mg tablet 50 mg PO HS 08/22/19 01/02/22 History zoledronic acid 5 mg/100 mL in See Rx Instructions IV .COMPLEX 08/31/19 01/02/22 Rx mannitol 5 %-water intravenous #100 mL piggybck (Reclast) cyanocobalamin (vitamin B-12) 1,000 mcg PO QAM 04/23/20 01/02/22 History 1,000 mcg tablet methylcellulose (laxative) 500 mg 500 mg PO DAILY 02/26/21 01/02/22 History tablet (Citrucel) fluticasone propionate 115 1 puff inhalation BID #12 grams 03/20/21 01/02/22 Rx mcg-salmeterol 21 mcg/actuation HFA inhaler (Advair HFA) hydrochlorothiazide 12.5 mg tablet 6.25 mg PO QAM 07/01/21 01/02/22 History Past Med/Surg History Medical History Age related osteoporosis Back problem HERNIATED DISC LUMBAR SPINE Chronic obstructive pulmonary disease "MILD" History of uterine cancer Mild asthma with allergic rhinitis without complication Raynaud disease Vitamin D deficiency Surgical History History of colonoscopy History of D&C History of tooth extraction Hx of total hysterectomy with removal of both tubes and ovaries uterine cancer, surgical intervention only Family History Mother Breast cancer Brother Family history of diabetes mellitus Sister Family history of colon cancer Other No family history of adverse response to anesthesia Denies family history of Ovarian cancer Colorectal cancer Uterine cancer Social History Smoking Status: Former smoker Second Hand Exposure: No; Do You Dip or Chew Tobacco: No; Tobacco Cessation Education Requested by Patient: No Hx Alcohol Use: Yes Alcohol type: wine Hx Substance Use: No Preferred Language: Upper Sorbian Communication Ability: Effective 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 HEENT normocephalic atraumatic mucous membranes moist. Cardio is regular without rubs murmurs or gallops. Lungs clear to auscultation bilaterally no rales rhonchi wheeze with good effort. Abdomen is soft nondistended nontender no masses organomegaly. No CVA tenderness. No guarding rebound or rigidity. Extremities show no cyanosis clubbing or edema. Neuro shows cranial nerves II through XII be grossly intact gross motor and sensory intact. Skin without rashes, pallor, icterus. Musculoskeletal without gross lesions. Mental status shows good recent and remote recall, normal mood and affect, good judgment and insight. Results & Data Results & Data ([facility]) Vital Signs (Past 12 Hours) Vital Signs Temp Pulse Pulse Resp BP BP Pulse Ox 08/04/22 17:41 102.2 F H 76 16 154/78 H 97 08/04/22 14:17 99.7 F H 08/04/22 13:32 08/04/22 13:32 71 18 131/79 95 08/04/22 11:32 86 14 124/77 95 08/04/22 10:00 98 08/04/22 10:00 119/80 08/04/22 09:45 98 08/04/22 09:30 99 08/04/22 09:15 98 08/04/22 09:00 97 08/04/22 09:00 114/79 08/04/22 08:45 95 08/04/22 08:30 98 08/04/22 08:15 97 08/04/22 08:12 97/58 L 08/04/22 08:11 96 08/04/22 08:10 98 08/04/22 08:09 97 08/04/22 07:20 74 21 97 08/04/22 07:10 77 22 96 08/04/22 07:00 76 24 08/04/22 07:00 96/64 L O2 Del Method O2 Del Method 08/04/22 17:41 Room Air 08/04/22 14:17 08/04/22 13:32 Room Air 08/04/22 13:32 Room Air 08/04/22 11:32 Room Air 08/04/22 10:00 Room Air 08/04/22 10:00 08/04/22 09:45 Room Air 08/04/22 09:30 Room Air 08/04/22 09:15 Room Air 08/04/22 09:00 Room Air 08/04/22 09:00 08/04/22 08:45 Room Air 08/04/22 08:30 Room Air 08/04/22 08:15 Room Air 08/04/22 08:12 08/04/22 08:11 Room Air 08/04/22 08:10 08/04/22 08:09 Room Air 08/04/22 07:20 Room Air 08/04/22 07:10 Room Air 08/04/22 07:00 08/04/22 07:00 Code Status & VTE Plan VTE Prophylaxis Plan VTE Prophylaxis will be ordered: Yes PG Care Time/CCT Total # of Minutes Spent Total Time Spent with Patient: Total time spent is greater than 50% in coordination of care (as documented) at patient's floor/unit and/or counseling patient: Coding Level of Care Code 31335 Initial Inpt Care Lvl 3 Diagnoses Cystitis N30.90 DVT prophylaxis Z29.9 Discharge planning issues Z02.9
[2022-08-04] MEDS ORDERED: traZODone HCL 50 MG TAB PO SCH (21:00)
--- NOTE | 2022-08-04 23:10 | Electrocardiogram Report ---
Test Reason : Blood Pressure : / mmHG Vent. Rate : 078 BPM Atrial Rate : 078 BPM P-R Int : 148 ms QRS Dur : 082 ms QT Int : 420 ms P-R-T Axes : 071 033 036 degrees QTc Int : 479 ms Normal sinus rhythm Nonspecific T wave abnormality Abnormal ECG When compared with ECG of 11-MAR-2021 15:00, Nonspecific T wave abnormality now evident in Inferior leads Nonspecific T wave abnormality, worse in Anterolateral leads Confirmed by William Alvarez ([id number]) on 08/04/2022 11:09:53 PM Referred By: REFERRED SELF Confirmed By:William Alvarez
[2022-08-05] MEDS: SODIUM CHLORIDE 0.9% 500 ML IV SCH ×4 (02:24→08:50)
[2022-08-05 06:27] LABS: Basophils # (auto) 0.03 K/uL (0-0.2); Basophils % (auto) 0.5 %; Eosinophils # (auto) 0.09 K/uL (0-0.50); Eosinophils % (auto) 1.5 %; Hematocrit (blood only) 35.7 % (34.1-44.9); Hemoglobin 11.9 g/dl (12.0-16.0); Immature Granulocytes # (auto) 0.04 K/uL (0.00-0.02); Immature Granulocytes % (auto) 0.7 %; Lymphocytes % (auto) 18.7 %; Mean Corpuscular Hgb Conc 33.3 g/dL (32.0-36.0); Mean Corpuscular Volume 87.1 fL (80.0-100.0); Mean Platelet Volume 8.8 fL (9.4-12.3); Monocytes # (auto) 0.66 K/uL (0.24-0.82); Monocytes % (auto) 11.2 %; Neutrophils # (auto) 3.95 K/uL (1.4-6.5); Neutrophils % (auto) 67.4 %; Platelet Count 225 K/uL (130-400); RDW Coefficient of Variation 12.7 % (11.5-14.5); RDW Standard Deviation 40.8 fL (36.4-46.3); White Blood Count 5.87 K/ul (4.8-10.8)
[2022-08-05 06:28] LABS: BUN Creatinine Ratio 10.1 (10-20); Calcium 8.9 mg/dl (8.5-10.1); Creatinine Clr Calc Pharmacy 61.3 ml/min; Est GFR (African American) 102.2 ml/min; Est GFR (Non-African American) 88.2 ml/min; Potassium 3.7 mmol/L (3.5-5.1)
[2022-08-05] MEDS ORDERED: cefTRIAXone SODIUM 1,000 MG in DEXTROSE 5% 50 ML IV SCH (07:00)
--- NOTE | 2022-08-05 07:31 | Hospitalist Progress Note ---
Date of Service August 05, 2022 Assessment & Plan (1) Cystitis: Plan: Mayra Casillas is a 72 y/o female who presented to the ED for fever and left flank pain. She went to [facility] urgent care in [place] over the weekend for urinary symptoms and was prescribed Bactrim, of which she took 4 doses. On Wednesday (08/03) reached out to her PCP as her symptoms were not improved and she had fever (ranging from 102-104), her PCP recommended she go to the ER. ASCENDING UTI, NOT PROGRESSED Bactrim more aggressive infection cefdinir 300mg BID 7-10 days Cystitis -Preliminary urine culture: lactose fermenting gram negative bacilli -Sensitivities: Diet: Regular DVT PPx: Lovenox Code Status: Full Code Admission and Anticipated Discharge Date Admission Date: August 04, 2022 Results & Data Results & Data ([facility]) Vital Signs (Past 12 Hours) Vital Signs Temp Pulse Resp BP Pulse Ox O2 Del Method 08/05/22 05:44 65 14 129/76 99 Room Air 08/05/22 02:26 36.6 C 63 18 115/77 99 Room Air Resident Activity Tracking Resident Involvement: Resident Care Provided Care Provided: Adult Hospital Medicine
[2022-08-05] MEDS: CYANOCOBALAMIN (B-12) 500 MCG TABLET PO SCH (08:43)
[2022-08-05] MEDS: CHOLECALCIFEROL 1,000 UNITS 25 MCG TAB PO SCH (08:43)
[2022-08-05] MEDS: hydroCHLOROthiazide 25 MG TAB PO SCH (08:44)
[2022-08-05] MEDS: FLUTICASONE/VILANTEROL 100/25MCG 14 PUFFS/INHALER INH SCH (08:44)
[2022-08-05] MEDS: MULTIVITAMIN TAB PO SCH (08:44)
[2022-08-05] MEDS ORDERED: METHYLCELLULOSE PO SCH (09:00)
[2022-08-05] MEDS ORDERED: ASPIRIN 81 MG ECTAB PO SCH (09:00)
[2022-08-05] MEDS: ENOXAPARIN INJ 30 MG/0.3 ML SYR SQ SCH (12:35)
--- NOTE | 2022-08-05 16:43 | Discharge Summary ---
Date of Service August 05, 2022 Admission HPI Per Admitting Provider Patient is a very pleasant 72-year-old female who presents with refractory urinary symptoms. She had cystitis symptoms, was treated as an outpatient with antibiotics, was not improving, continuing to have fevers, called PCPdirected to ER. She also notes some left flank pain. Otherwise she feels okay. Review of systems otherwise negative except for as above Admission Exam Per Admitting Provider In general she is awake and alert pleasant no distress. HEENT normocephalic atraumatic mucous membranes moist. Cardio is regular without rubs murmurs or gallops. Lungs clear to auscultation bilaterally no rales rhonchi wheeze with good effort. Abdomen is soft nondistended nontender no masses organomegaly. No CVA tenderness. No guarding rebound or rigidity. Extremities show no cyanosis clubbing or edema. Neuro shows cranial nerves II through XII be grossly intact gross motor and sensory intact. Skin without rashes, pallor, icterus. Musculoskeletal without gross lesions. Mental status shows good recent and remote recall, normal mood and affect, good judgment and insight. Principal Diagnosis Cystitis Discharge Exam Constitutional WD/WN, vitals as above Neck normal visual inspection Respiratory normal respiratory effort, lungs clear to auscultation Gastrointestinal (Abdomen) slight suprapubic discomfort with pressure, no abdominal discomfort to palpation. +bowel sounds, nondistended Musculoskeletal left lumbar paraspinal tenderness to palpation, no CVA tenderness Skin no rashes, warm and dry Psychiatric A+Ox3, euthymic affect Discharge Data Allergies Allergy/AdvReac Type Severity Reaction Status Date / Time alendronate sodium Allergy Intermediate HEART Verified 01/05/22 07:29 BEATS REALLY FAST MUSCLE RELAXER Allergy Intermediate ? Verified 01/05/22 07:29 MEDICATION NAME, 1986 - FACE SWOLLEN , HIVES Consultations 08/04/22 08:41 ED Decision to Admit Stat Ordered Studies 08/04/22 06:45 CT abd pelvis wo con Stat Hospital Course (1) Cystitis: Chelsie is a 72 y/o female who presented to the ED with fever after and left flank pain after recent diagnosis of UTI on 08/02. Patient notes that she de veloped a 104 F fever and urinary urgency overnight on Wednesday 08/01 and went to [facility] in [place]. A UA positively identified UTI and sample was sent for culture. Patient was prescribed Bactrim (took a total of 4 doses), but after not feeling improvement of symptoms on Wednesday she reached out to her PCP who recommended she go to the ED. Upon admission to the ER, a CT showed cystitis with ascending infection at left ureter. Patient was started on IV Rocephin. After less than 24 hours, patient notes a significant increase in her symptoms. Denied any fever/body aches/headache, no CVA tenderness on exam. Patient received a second dose of Rocephin on 08/05. Urine culture grew lactose fermenting gram negative bacilli, after sensitivities were determined- patient was discharged on 5 days of Cefdinir. Total Time Total Time Spent Total Time Spent (In Minutes): . Discharge Plan Discharge Items Patient Disposition: Home - Self-Care Reason For Visit: UTI, FAILED OUTPT TREATMENT Discharge Diagnosis: Cystitis Activity: Per Instructions section Non-emergency contact: Primary Care Provider Call non-emergency contact if: your symptoms worsen and your pain is not controlled Follow-up/Referrals: Wayne Johns MD [Primary Care Provider] - Diet: Regular Addtl Attending Provider Instructions: You were diagnosed with cystitis ascending up one ureter after CT scan. Your urine culture grew e.Coli (a common bacteria seen in urinary tract infections), the urine culture also provided sensitivities which helped us determine which antibiotic would be most effective. The original antibiotic, Bactrim, was found to be sensitive/effective against your infection- however in your case your symptoms were taking a bit longer to improve on your home treatment of Bactrim. You received Rocephin while in the hospital which has worked well to improve your symptoms. On discharge, we will be sending you home on Cefdinir (a similar antibiotic to the Rocephin you got in the hospital). You will take Cefdinir 1 pill in the morning and 1 pill at bedtime for 5 more days, starting tomorrow. Call to schedule a follow up with your PCP in the next 1-2 weeks. Pending Studies at Discharge: No Stand-Alone Forms: My [employer], Smoking Cessation Medications and DC Order Prescriptions: New cefdinir 300 mg capsule 300 mg PO BID 5 Days Qty: 10 0RF Continued cyanocobalamin (vitamin B-12) 1,000 mcg tablet 1,000 mcg PO QAM Advair HFA 115-21 mcg/actuation HFA aerosol inhaler 1 puff INH BID Qty: 12 5RF Rx Instructions: use via spacer and rinse mouth after use aspirin [Adult Low Dose Aspirin] 81 mg tablet,delayed release (DR/EC) 81 mg PO UD Rx Instructions: three times a week melatonin 5 mg capsule 10 mg PO HS PRN (Reason: Sleep) multivitamin tablet 1 tab PO DAILY trazodone 50 mg tablet 50 mg PO HS cholecalciferol (vitamin D3) 2,000 unit capsule 2,000 units PO QAM zoledronic [id number] [Reclast] 5 mg/100 mL piggyback See Rx Instructions IV .COMPLEX Qty: 100 0RF Dose Instruction: IV ; Rx Instructions: taken once a year, last dose 10/2020 Citrucel 500 mg Tablet 500 mg PO DAILY hydrochlorothiazide 12.5 mg tablet 6.25 mg PO QAM Discharge Orders: Discharge Order (Routine); Ordered 08/05/22 Ordered By: Kennedi Carson/Other Patient Handouts: ED Screening Exam Medical Nonurgent Admission Data Admit Date/Time: 08/04/22 08:37 Attending Provider: Frank Bautista Admit Provider: Frank Bautista Primary Care Provider: Wayne Johns Other Providers: Frank Bautista Other Interventions: Discharge Summary Assessment (RN) Last Done: 08/05/22 12:57 Resident Activity Tracking Resident Involvement: Resident Care Provided Care Provided: Adult Hospital Medicine
--- NOTE | 2022-08-05 16:44 | Discharge Summary ---
Date of Service August 05, 2022 Admission HPI Per Admitting Provider Patient is a very pleasant 72-year-old female who presents with refractory urinary symptoms. She had cystitis symptoms, was treated as an outpatient with antibiotics, was not improving, continuing to have fevers, called PCPdirected to ER. She also notes some left flank pain. Otherwise she feels okay. Review of systems otherwise negative except for as above Principal Diagnosis complicated (ascending) UTI - improving Discharge Exam gen aaox3 pleasant nad heent nc at mmm breathing unlabored no accessory muscles good effort skin no rashes no pallor or icterus neuro no focal deficits Discharge Data Allergies Allergy/AdvReac Type Severity Reaction Status Date / Time alendronate sodium Allergy Intermediate HEART Verified 01/05/22 07:29 BEATS REALLY FAST MUSCLE RELAXER Allergy Intermediate ? Verified 01/05/22 07:29 MEDICATION NAME, 1986 - FACE SWOLLEN , HIVES Consultations 08/04/22 08:41 ED Decision to Admit Stat Ordered Studies 08/04/22 06:45 CT abd pelvis wo con Stat Hospital Course (1) Cystitis: While she does not quite have pyelonephritis, her cystitis with a sending features of flank pain and inflammation on CT scan definitely suggest she is at risk for deteriorating into pyelonephritis without more aggressive treatment. Was actually sensitive to Bactrim following, but probably just did not have enough time to affect response. That said beta-lactam antibiotics tend to be m ore aggressively bacteriocidalgiven that she is improving on ceftriaxone, we will complete a course with cefdinir. She does not show bacteremia, she is safe/stable for dischargewe will send home on cefdinir 300 mg twice daily to round out a course of treatment. (2) DVT prophylaxis: lovenox utilized during her stay. (3) Discharge planning issues: Safe for home. Total Time Total Time Spent Total Time Spent (In Minutes): <30 Discharge Plan Discharge Items Patient Disposition: Home - Self-Care Reason For Visit: UTI, FAILED OUTPT TREATMENT Discharge Diagnosis: Cystitis Activity: Per Instructions section Non-emergency contact: Primary Care Provider Call non-emergency contact if: your symptoms worsen and your pain is not controlled Follow-up/Referrals: Wayne Johns MD [Primary Care Provider] - Diet: Regular Addtl Attending Provider Instructions: You were diagnosed with cystitis ascending up one ureter after CT scan. Your urine culture grew e.Coli (a common bacteria seen in urinary tract infections), the urine culture also provided sensitivities which helped us determine which antibiotic would be most effective. The original antibiotic, Bactrim, was found to be sensitive/effective against your infection- however in your case your symptoms were taking a bit longer to improve on your home treatment of Bactrim. You received Rocephin while in the hospital which has worked well to improve your symptoms. On discharge, we will be sending you home on Cefdinir (a similar antibiotic to the Rocephin you got in the hospital). You will take Cefdinir 1 pill in the morning and 1 pill at bedtime for 5 more days, starting tomorrow. Call to schedule a follow up with your PCP in the next 1-2 weeks. Pending Studies at Discharge: No Stand-Alone Forms: My [facility] [employer], Smoking Cessation Medications and DC Order Prescriptions: New cefdinir 300 mg capsule 300 mg PO BID 5 Days Qty: 10 0RF Continued cyanocobalamin (vitamin B-12) 1,000 mcg tablet 1,000 mcg PO QAM Advair HFA 115-21 mcg/actuation HFA aerosol inhaler 1 puff INH BID Qty: 12 5RF Rx Instructions: use via spacer and rinse mouth after use aspirin [Adult Low Dose Aspirin] 81 mg tablet,delayed release (DR/EC) 81 mg PO UD Rx Instructions: three times a week melatonin 5 mg capsule 10 mg PO HS PRN (Reason: Sleep) multivitamin tablet 1 tab PO DAILY trazodone 50 mg tablet 50 mg PO HS cholecalciferol (vitamin D3) 2,000 unit capsule 2,000 units PO QAM zoledronic [id number] [Reclast] 5 mg/100 mL piggyback See Rx Instructions IV .COMPLEX Qty: 100 0RF Dose Instruction: IV ; Rx Instructions: taken once a year, last dose 10/2020 Citrucel 500 mg Tablet 500 mg PO DAILY hydrochlorothiazide 12.5 mg tablet 6.25 mg PO QAM Discharge Orders: Discharge Order (Routine); Ordered 08/05/22 Ordered By: Kennedi Carson/Other Patient Handouts: ED Screening Exam Medical Nonurgent Admission Data Admit Date/Time: 08/04/22 08:37 Attending Provider: Frank Bautista Admit Provider: Frank Bautista Primary Care Provider: Wayne Johns Other Providers: Frank Bautista Other Interventions: Discharge Summary Assessment (RN) Last Done: 08/05/22 12:57 Coding Level of Care Code D/C DAY MANAGEMENT <30 MINS Diagnoses Cystitis N30.90 DVT prophylaxis Z29.9 Discharge planning issues Z02.9
== END 2022-08-05 12:57 | disposition home or self-care (01) | DRG 690 ==
LOC: ED 02:49 → EDINP 08:37

== ENCOUNTER 2023-08-20 17:00 | Observation (INO) ==
--- NOTE | 2023-08-20 17:48 | ED Triage Note ---
Date of Service August 20, 2023 History of Present Illness This patient was briefly evaluated while in triage. An abbreviated physical exam was performed. This patient is a 73-year-old Female who presents to the ED for evaluation of lower quadrant camps. She has had similar before. Hx of diverticulitis. Pain started last night. Physical Exam GENERAL: 73 year old female. In no acute distress. SKIN: No lesions or rashes. HEART: Regular rate and rhythm. LUNGS: Clear to auscultation. ABDOMEN: Bowel sounds normoactive. No guarding or rigidity. LLQ abd ttp noted. NEURO: Alert and oriented. No deficits. MUSCULOSKELETAL: No deformities to inspection of the extremities. PSYCH: Patient is pleasant and answers all questions appropriately. Initial orders for labs and / or imaging were placed and patient was placed in the waiting area until a bed is available. Please see further documentation for the full ED course.
[2023-08-20 19:59] LABS: Appearance Urine Cloudy (Clear); Bacteria Urine Automated Negative (Negative); Bilirubin Urine Negative (Negative); Blood Urine Trace (Negative); Color Urine Yellow; Glucose Urine UA Negative (Negative); Ketones Urine Negative (Negative); Leukocyte Esterase Urine 3+ (Negative); Nitrite Urine Positive (Negative); Protein Urine Trace (Negative); RBC Urine Automated 0-4 /hpf (0-4); Specific Gravity Urine 1.017 (1.000-1.030); Urobilinogen Urine Negative (Negative); WBC Urine Automated >30 /hpf (0-5); pH Urine 6.5 (4.5-7.5)
[2023-08-20 20:11] LABS: Basophils # (auto) 0.04 K/uL (0.00-0.20); Basophils % (auto) 0.4 %; Eosinophils # (auto) 0.14 K/uL (0.00-0.50); Eosinophils % (auto) 1.3 %; Hematocrit (blood only) 35.8 % (37.0-47.0); Hemoglobin 12.5 g/dl (12.0-16.0); Immature Granulocytes # (auto) 0.07 K/uL (0.01-0.20); Immature Granulocytes % (auto) 0.6 %; Lymphocytes # (auto) 1.22 K/uL (1.20-3.40); Lymphocytes % (auto) 10.9 %; Mean Corpuscular Hemoglobin 29.3 pg (25.0-34.0); Mean Corpuscular Hgb Conc 34.9 g/dL (32.0-36.0); Mean Platelet Volume 8.7 fL (9.4-12.4); Monocytes # (auto) 0.74 K/uL (0.11-0.59); Monocytes % (auto) 6.6 %; Neutrophils # (auto) 8.99 K/uL (1.40-6.50); Neutrophils % (auto) 80.2 %; Platelet Count 270 K/uL (130-400); RDW Coefficient of Variation 12.3 % (11.5-14.5); RDW Standard Deviation 37.2 fL (36.4-46.3); Red Blood Count 4.26 M/uL (4.20-5.40)
[2023-08-20 20:30] LABS: Albumin Globulin Ratio 1.4 (0.9-2); Albumin Level 4.5 gm/dl (3.4-5.0); BUN Creatinine Ratio 21.9 (10-20); Bilirubin,Total 0.5 mg/dl (0.2-1.0); Calcium 9.6 mg/dl (8.6-10.3); Creatinine Clr Calc Pharmacy 54.6 ml/min; Est GFR (Non-African American) 82.9 ml/min; Globulin 3.2 gm/dl (2.5-4.0); Potassium 3.8 mmol/L (3.5-5.1); Total Protein 7.7 gm/dl (6.0-8.3)
[2023-08-20] MEDS ORDERED: OPTIRAY 320 100ml IV ONE (21:17)
[2023-08-20] MEDS ORDERED: cefTRIAXone SODIUM 1,000 MG/50 ML BAG IV STA (21:35)
--- NOTE | 2023-08-20 21:57 | CT Scan Report ---
Exam(s): CT ABDOMEN + PELVIS With Contrast IV Amt: 93ML OPTIRAY 320 EXAM: CT Abdomen and Pelvis With Intravenous Contrast CLINICAL HISTORY: Reason for exam: LLQ abd pain. TECHNIQUE: Axial computed tomography images of the abdomen and pelvis with intravenous contrast. CTDI is 9.29 mGy and DLP is 430.12 mGy-cm. Automated exposure control was utilized for the study. A dose lowering technique was utilized adhering to the principles of ALARA. CONTRAST: Patient received 93ML OPTIRAY 320 of IV contrast COMPARISON: CT abdomen/pelvis on 08/04/2022 FINDINGS: Lung bases: Nonspecific 3 mm subpleural nodule along the posterior left lower lobe. Nonspecific 2 mm nodule in the right lower lobe. If patient is at low risk, no further follow-up is necessary. If patient is at high risk, consider follow-up CT in 12 months. ABDOMEN: Liver: Mild hepatomegaly. Gallbladder and bile ducts: Unremarkable. No calcified stones. No ductal dilation. Pancreas: Unremarkable. No mass. No ductal dilation. Spleen: Small splenule. Adrenals: Unremarkable. No mass. Kidneys and ureters: Unremarkable. No hydronephrosis or obstructing stone. Stomach and bowel: Diverticulosis. Wall thickening of the sigmoid colon is concerning for diverticulitis or colitis. Fluid and gas-filled small bowel loops may represent enteritis in the appropriate clinical setting. Evaluation of the stomach is limited by underdistention. PELVIS: Appendix: No findings to suggest acute appendicitis. Bladder: Mild prominence of the bladder wall is nonspecific. Please correlate with urinalysis to evaluate for cystitis. Reproductive: Prior hysterectomy. ABDOMEN and PELVIS: Intraperitoneal space: Small amount of fluid in the right abdomen and pelvis. No free air. Bones/joints: Degenerative changes of the spine. Minimal grade 1 anterolisthesis of L3 on L4. No acute fracture. No dislocation. Soft tissues: Unremarkable. Vasculature: Phleboliths in the pelvis. Atherosclerotic changes of the vasculature. No aortic aneurysm or dissection. Lymph nodes: Unremarkable. No enlarged lymph nodes. IMPRESSION: 1. Diverticulosis. Wall thickening of the sigmoid colon is concerning for diverticulitis or colitis. Further evaluation could be performed with colonoscopy during follow up if clinically indicated. 2. Fluid and gas-filled small bowel loops may represent enteritis in the appropriate clinical setting. 3. Mild prominence of the bladder wall is nonspecific. Please correlate with urinalysis to evaluate for cystitis. 4. Small amount of fluid in the right abdomen and pelvis. 5. Nonspecific 3 mm subpleural nodule along the posterior left lower lobe. Nonspecific 2 mm nodule in the right lower lobe. If patient is at low risk, no further follow-up is necessary. If patient is at high risk, consider follow-up CT in 12 months. Electronically signed by: Nereyda Morales M.D. 08/20/23 21:56 PM
[2023-08-20] MEDS ORDERED: KETOROLAC TROMETHAMINE 15 MG/ML VIAL IV STA (22:08)
[2023-08-20] MEDS ORDERED: ONDANSETRON INJ 2 MG/ML 2 ML VIAL IV STA (22:08)
[2023-08-20] MEDS ORDERED: PIPERACILLIN/TAZOBACTAM 4.5 GM/100 ML BAG IV ONE (22:08)
--- NOTE | 2023-08-20 22:23 | Emergency Department Note ---
ED Visit Note The patient was seen and examined with luke. I agree with the history, physical and findings. Please see the note for disposition and details. .
--- NOTE | 2023-08-20 22:24 | Emergency Department Note ---
History of Present Illness General Chief complaint: Abdominal Pain Stated complaint: ABD PAIN Time Seen by Provider: 08/20/23 21:34 History of Present Illness Maximum Pain Intensity: 5 This 73-year-old female presents the ER complaint of lower abdominal pain with subjective fever and chills for the past few days steadily getting worse. She has a history of UTIs and diverticulitis. Patient denies chest pain, dyspnea, flank pain, cold symptoms. Home Medications Medication Instructions Recorded Confirmed Type aspirin 81 mg tablet,delayed 81 mg PO UD 08/22/19 02/15/23 History release (Adult Low Dose Aspirin) cholecalciferol (vitamin D3) 50 2,000 units PO QAM 08/22/19 02/15/23 History mcg (2,000 unit) capsule melatonin 5 mg capsule 10 mg PO HS PRN Sleep 08/22/19 02/15/23 History multivitamin 1 tab PO DAILY 08/22/19 02/15/23 History trazodone 50 mg tablet 50 mg PO HS 08/22/19 02/15/23 History zoledronic acid 5 mg/100 mL in See Rx Instructions IV .COMPLEX 08/31/19 02/15/23 Rx mannitol 5 %-water intravenous #100 mL piggybck (Reclast) cyanocobalamin (vitamin B-12) 1,000 mcg PO QAM 04/23/20 02/15/23 History 1,000 mcg tablet methylcellulose (laxative) 500 mg 500 mg PO DAILY 02/26/21 02/15/23 History tablet (Citrucel) vibegron 75 mg tablet (Gemtesa) 75 mg PO DAILY #30 tabs 02/23/23 Rx albuterol sulfate 90 mcg/actuation 2 inh inhalation QID PRN shortness 03/31/23 03/31/23 Rx aerosol inhaler of breath or wheezing #8.5 grams hydrochlorothiazide 12.5 mg tablet 6.25 mg PO QAM #45 tabs 04/16/23 Rx Allergies Allergy/AdvReac Type Severity Reaction Status Date / Time alendronate sodium Allergy Intermediate HEART Verified 02/15/23 13:46 BEATS REALLY FAST MUSCLE RELAXER Allergy Intermediate ? Verified 02/15/23 13:46 MEDICATION NAME, 1986 - FACE SWOLLEN , HIVES Past Med/Surg History Medical History Abnormal PFT Age related osteoporosis Back problem HERNIATED DISC LUMBAR SPINE Chronic obstructive pulmonary disease "MILD" Dyspnea History of uterine cancer Mild asthma with allergic rhinitis without complication Raynaud disease Raynauds phenomenon Vitamin D deficiency Surgical History History of colonoscopy History of D&C History of tooth extraction Hx of total hysterectomy with removal of both tubes and ovaries uterine cancer, surgical intervention only Family History Mother Breast cancer Brother Family history of diabetes mellitus Sister Family history of colon cancer Other No family history of adverse response to anesthesia Denies family history of Ovarian cancer Colorectal cancer Uterine cancer Social History Smoking Status: Never smoker Second Hand Exposure: No; Do You Dip or Chew Tobacco: No; Hx Alcohol Use: Yes Alcohol type: wine Hx Substance Use: No Preferred Language: Tamazight Communication Ability: Effective Wire Welder Required: No Beliefs That Will Affect Care: None marital status: Current Living Situation: Spouse current occupational status: retired Other Information That Helps Us Care for You: No Feels Safe at Home: Yes Safety Concerns: Feels Safe At This Time Seatbelt Use: always Assistive Devices: Glasses Assistive Devices Comment: reading glasses Review of Systems A total of 10 systems reviewed and were otherwise negative Physical Exam Vital Signs Vital Signs - 24 hr 08/20/23 17:47 08/20/23 22:23 08/20/23 22:25 Temperature 37.7 C H 37.6 C H Temperature Source Temporal Artery Scan Oral Pulse Rate 79 80 Pulse Rate [Right Finger] 77 Pulse Rhythm [Right Finger] Regular Pulse Strength [Right Finger] Normal Respiratory Rate 16 18 Respiratory Effort / Characteristics Non-Labored Spontaneous Respiratory Depth Normal Normal Respiratory Pattern Regular Regular Blood Pressure 123/71 Blood Pressure [Left Arm] 123/87 Blood Pressure Mean 88 Blood Pressure Mean [Left Arm] 99 Blood Pressure Position Sitting Pulse Oximetry 97 99 Oxygen Delivery Method Room Air Room Air Sepsis Recent Fever Within 48 Hours Yes Sepsis New/Unexplained Change in Mental Status No Sepsis Action Taken by Nursing No Action Required VITALS: Vitals are noted on the nurse's note and reviewed by myself. Vital signs stable. GENERAL: Pleasant female with present, in no acute distress, nondiaphoretic, well-developed well-nourished. SKIN: The skin was without rashes, erythema, edema, or bruising. There is no tenting of the skin. Capillary reflex less than 2 seconds. HEAD: Normocephalic atraumatic. EARS: External auditory canals clear, EYES: Pupils equal round and reactive to light and accommodation. Conjunctivae without injection, sclerae without icterus. Extraocular movements intact. NOSE: Patent, turbinates without inflammation or discharge. MOUTH: Mucous membranes moist. Pharynx without erythema or exudate. Uvula midline. Airway patent. Tongue does not deviate. NECK: Supple without nuchal rigidity. No lymphadenopathy. No thyromegaly. Cervical spine is nontender. No JVD. HEART: Regular rate and rhythm LUNGS: Clear to auscultation bilaterally without wheezes, rales or rhonchi. No retractions or accessory muscle use. ABDOMEN: Positive bowel sounds x 4. Normal tympanic percussion. Soft, tender to palpation lower abdomen, without masses or organomegaly. Valladares sign negative. No guarding or rebound tenderness. No CVA tenderness MUSCULOSKELETAL: No muscle atrophy, erythema, or edema noted. NEURO: Patient was alert and oriented to person place and time. Normal sensation to light and sharp touch. No focal neurological deficits. Course Administered Medications Discontinued Medications Ceftriaxone Sodium (Rocephin) 1,000 mg in 50 mls @ 100 mls/hr IV NOW STA Stop: 08/20/23 22:04 Last Admin: 08/20/23 21:44 Dose: Not Given Documented By: JAI Piperacillin Sod/Tazobactam Sod (Zosyn) 4.5 gm in 100 mls @ 200 mls/hr IV NOW ONE Stop: 08/20/23 22:37 Last Infusion: 08/20/23 23:00 Dose: 0 mls/hr Documented By: Admin: 08/20/23 22:21 Dose: 200 mls/hr Documented By: JAI Ioversol (Optiray 320 100ml) 93 ml IV ONCE ONE Stop: 08/20/23 21:18 Last Admin: 08/20/23 21:19 Dose: 93 ml Documented By: MODESTO Ketorolac Tromethamine (Ketorolac Tromethamine 15 Mg/Ml Vial) 10 mg IV NOW STA Stop: 08/20/23 22:09 Last Admin: 08/20/23 22:20 Dose: 10 mg Documented By: JAI Ondansetron HCl (Ondansetron Inj 2 Mg/Ml 2 Ml Vial) 4 mg IV NOW STA Stop: 08/20/23 22:09 Last Admin: 08/20/23 22:19 Dose: 4 mg Documented By: JAI Medical Decision Making Medical Records Attestation: I reviewed the patient's medical records. Home Medications Current Medication List: was personally reviewed by me Laboratory Data Attestation: I reviewed the patient's lab results. 08/20/23 19:35 08/20/23 19:35 Lab Results 08/20/23 08/20/23 08/20/23 Range/Units 19:35 19:35 19:35 WBC 11.20 H (4.8-10.8) K/ul RBC 4.26 (4.20-5.40) M/uL Hgb 12.5 (12.0-16.0) g/dl Hct 35.8 L (37.0-47.0) % MCV 84.0 (80.0-100.0) fL MCH 29.3 (25.0-34.0) pg MCHC 34.9 (32.0-36.0) g/dL RDW Std Deviation 37.2 (36.4-46.3) fL RDW Coeff of [place] 12.3 (11.5-14.5) % Plt Count 270 (130-400) K/uL MPV 8.7 L (9.4-12.4) fL Immature Gran % (Auto) 0.6 % Neut % (Auto) 80.2 % Lymph % (Auto) 10.9 % [place] % (Auto) 6.6 % Eos % (Auto) 1.3 % Baso % (Auto) 0.4 % Neut # (Auto) 8.99 H (1.40-6.50) K/uL Lymph # (Auto) 1.22 (1.20-3.40) K/uL [place] # (Auto) 0.74 H (0.11-0.59) K/uL Eos # (Auto) 0.14 (0.00-0.50) K/uL Baso # (Auto) 0.04 (0.00-0.20) K/uL Immature Gran # (Auto) 0.07 (0.01-0.20) K/uL Sodium 132 L (136-145) mmol/L Potassium 3.8 (3.5-5.1) mmol/L Chloride 102 (98-107) mmol/L Carbon Dioxide 25 (21-32) mmol/L Anion Gap 5 (3-11) BUN 16 (6-23) mg/dl Creatinine 0.73 (0.6-1.2) mg/dl Est Cr Clr Drug Dosing 54.6 ml/min Est GFR ( Amer) 96.0 ml/min Est GFR (Non-Af Amer) 82.9 ml/min BUN/Creatinine Ratio 21.9 H (10-20) Glucose 116 H (70-99(Fasting)) mg/dl Calcium 9.6 (8.6-10.3) mg/dl Total Bilirubin 0.5 (0.2-1.0) mg/dl AST 17 (13-39) U/L ALT 10 (7-52) U/L Alkaline Phosphatase 47 (34-104) U/L Total Protein 7.7 (6.0-8.3) gm/dl Albumin 4.5 (3.4-5.0) gm/dl Globulin 3.2 (2.5-4.0) gm/dl Albumin/Globulin Ratio 1.4 (0.9-2) Urine Color Yellow Urine Appearance Cloudy A (Clear) Urine pH 6.5 (4.5-7.5) Ur Specific [place] 1.017 (1.000-1.030) Urine Protein Trace H (Negative) Urine Glucose (UA) Negative (Negative) Urine Ketones Negative (Negative) Urine Blood Trace H (Negative) Urine Nitrite Positive A (Negative) Urine Bilirubin Negative (Negative) Urine Urobilinogen Negative (Negative) Ur Leukocyte Esterase 3+ H (Negative) Urine WBC (Auto) >30 H (0-5) /hpf Urine RBC (Auto) 0-4 (0-4) /hpf U Hyaline Cast (Auto) 1-5 (0-5) /lpf U Epithel Cells (Auto) 5-10 H (0-5) /lpf Urine Bacteria (Auto) Negative (Negative) Urine Yeast Not Reportable Imaging Data Attestation: I personally reviewed and interpreted this imaging study as follows: Radiologist's Impression: Abdomen/Pelvis CT 08/20/23 17:49 Exam(s): CT ABDOMEN + PELVIS With Contrast IV Amt: 93ML OPTIRAY 320 EXAM: CT Abdomen and Pelvis With Intravenous Contrast CLINICAL HISTORY: Reason for exam: LLQ abd pain. TECHNIQUE: Axial computed tomography images of the abdomen and pelvis with intravenous contrast. CTDI is 9.29 mGy and DLP is 430.12 mGy-cm. Automated exposure control was utilized for the study. A dose lowering technique was utilized adhering to the principles of ALARA. CONTRAST: Patient received 93ML OPTIRAY 320 of IV contrast COMPARISON: CT abdomen/pelvis on 08/04/2022 FINDINGS: Lung bases: Nonspecific 3 mm subpleural nodule along the posterior left lower lobe. Nonspecific 2 mm nodule in the right lower lobe. If patient is at low risk, no further follow-up is necessary. If patient is at high risk, consider follow-up CT in 12 months. ABDOMEN: Liver: Mild hepatomegaly. Gallbladder and bile ducts: Unremarkable. No calcified stones. No ductal dilation. Pancreas: Unremarkable. No mass. No ductal dilation. Spleen: Small splenule. Adrenals: Unremarkable. No mass. Kidneys and ureters: Unremarkable. No hydronephrosis or obstructing stone. Stomach and bowel: Diverticulosis. Wall thickening of the sigmoid colon is concerning for diverticulitis or colitis. Fluid and gas-filled small bowel loops may represent enteritis in the appropriate clinical setting. Evaluation of the stomach is limited by underdistention. PELVIS: Appendix: No findings to suggest acute appendicitis. Bladder: Mild prominence of the bladder wall is nonspecific. Please correlate with urinalysis to evaluate for cystitis. Reproductive: Prior hysterectomy. ABDOMEN and PELVIS: Intraperitoneal space: Small amount of fluid in the right abdomen and pelvis. No free air. Bones/joints: Degenerative changes of the spine. Minimal grade 1 anterolisthesis of L3 on L4. No acute fracture. No dislocation. Soft tissues: Unremarkable. Vasculature: Phleboliths in the pelvis. Atherosclerotic changes of the vasculature. No aortic aneurysm or dissection. Lymph nodes: Unremarkable. No enlarged lymph nodes. IMPRESSION: 1. Diverticulosis. Wall thickening of the sigmoid colon is concerning for diverticulitis or colitis. Further evaluation could be performed with colonoscopy during follow up if clinically indicated. 2. Fluid and gas-filled small bowel loops may represent enteritis in the appropriate clinical setting. 3. Mild prominence of the bladder wall is nonspecific. Please correlate with urinalysis to evaluate for cystitis. 4. Small amount of fluid in the right abdomen and pelvis. 5. Nonspecific 3 mm subpleural nodule along the posterior left lower lobe. Nonspecific 2 mm nodule in the right lower lobe. If patient is at low risk, no further follow-up is necessary. If patient is at high risk, consider follow-up CT in 12 months. Electronically signed by: Nereyda Morales M.D. 08/20/23 21:56 PM [facility] Narrative Prior records/ancillary studies reviewed. Triage Nursing notes reviewed. Additional history obtained from family The patient's history was concerning for abdominal pain. Differential diagnosis: Etiologies such as appendicitis, diverticulitis, PUD, biliary pathology, UTI, pancreatitis, obstruction, mesenteric ischemia, aortic pathology, infections, inflammatory bowel disease, renal colic, as well as others were entertained. Physical examination findings: As above. ER treatment provided: An order was placed for continuous cardiac monitoring. The monitor shows a rate of 60-100 with a sinus rhythm per my Independent interpretation. IV fluids, Toradol Zofran and Zosyn were ordered On reassessment the patient felt better. Diagnostics interpreted by me: The labs Independently Interpreted by myself revealed leukocytosis, urine concerning for infection sent for culture. Prior urine culture was reviewed Imaging studies: CT scan is concerning for diverticulitis without perforation per my independent interpretation and report was reviewed as above Consultation: A consultation was placed with the hospitalist. The case was discussed and diagnostics were reviewed. The patient was evaluated in the ER for further treatment. Exam and history seem consistent with diverticulitis and UTI. Patient was started on antibiotics. Prior urine culture was reviewed. Blood cultures are pending. Patient is agreeable treatment plan of admission. Medicine was consul kristen and case was discussed. Patient will be mated to the medical service for further evaluation and treatment. By the evaluation outlined above emergent etiologies such as appendicitis, PUD, biliary pathology, pancreatitis, obstruction, mesenteric ischemia, aortic pathology, inflammatory bowel disease, renal colic, as well as others were deemed relatively unlikely. The pt informed about the findings as listed above. All questions were answered and pleased with the treatment. The chart was completed utilizing [employer] voice recognition software. Grammatical errors, random word insertions, pronoun errors, and incomplete sentences are an occassional consequence of this system due to software limitations, ambient noise, and hardware issues. Any formal questions or concerns about the content, text, or information contained within the body of this dictation should be directly addressed to the physician medical receptionist medical assistant for clarification. Impression & Plan Diverticulitis, Acute UTI Discharge Plan Visit Data Chief Complaint: Abdominal Pain Stated Complaint: ABD PAIN ED Provider: Nico [facility] ED Midlevel Provider: Ingris Aparicio Discharge Problem: Diverticulitis, Acute UTI Patient Disposition: Admitted As Inpatient Condition: Good Discharge Instructions Interventions: ED Discharge Assessment Last Done: 08/20/23 23:33
[2023-08-20] MEDS ORDERED: ONDANSETRON INJ 2 MG/ML 2 ML VIAL IV PRN (23:51)
[2023-08-20] MEDS ORDERED: ALBUTEROL HFA 8 GM INHALER INH PRN (23:51)
[2023-08-20] MEDS ORDERED: ACETAMINOPHEN 325 MG TAB PO PRN (23:51)
[2023-08-21] MEDS ORDERED: MELATONIN 3 MG TAB PO PRN (00:03)
[2023-08-21] MEDS ORDERED: NSS + 20MEQ KCL 20 MEQ/1,000 ML BAG IV SCH (00:15)
--- NOTE | 2023-08-21 02:10 | History & Physical Report ---
Date of Service August 20, 2023 The patient was seen and examined on 08/20/23 Assessment & Plan (1) Sigmoid diverticulitis: (2) Acute UTI: (3) Cystitis: (4) Insomnia: Plan Sigmoid diverticulitis- Patient reports that she eats a lot of salads Discussed need for low residue diet once discharged and then gradually resuming her usual diet Full liquid diet started in the morning if tolerated No risk factors for C. difficile Continue Zosyn 4.5 g IV every 8 hours Zofran 4 mg IV every 6 hours as needed NSS + KCl 20 mill equivalents at 80 mils per hour x1 L Cystitis/UTI- Follow urine culture and sensitivity Antibiotics as above Hold HCTZ Continue vibegron Insomnia/anxiety- Continue melatonin, trazodone Admission and Anticipated Discharge Date Admission Date: August 20, 2023 History of Present Illness Chief Complaint: The patient presents to the emergency department with 24 hours of worsening left lower quadrant pain, fever and chills. She reports having had 4 episodes of similar symptoms that also included diarrhea earlier in the year, that resolved spontaneously. She reports that she came in to the ED this time not the previous times, because the pain was more intense and more severe early on Primary Care Provider: Robin Manriquez DO The patient is a 73-year-old female with a past medical history including Raynaud's phenomenon nocturia hypercalciuria endometrial stromal neoplasm, cystitis, hyponatremia, B12 deficiency, insomnia, bladder spasm and hypertension. The patient presents to the emergency department symptoms as noted above. CT scan of abdomen pelvis shows sigmoid diverticulitis and possible enteritis. Bladder wall was mildly thickened, with concern of Brymegan regarding possible cystitis small pulmonary nodules noted Significant laboratories: WBC 11.20, sodium 132, glucose 116 From the ED patient received the following: Zosyn 4.5 g IV and Zofran 4 mg IV Allergies Allergy/AdvReac Type Severity Reaction Status Date / Time alendronate sodium Allergy Intermediate HEART Verified 02/15/23 13:46 BEATS REALLY FAST MUSCLE RELAXER Allergy Intermediate ? Verified 02/15/23 13:46 MEDICATION NAME, 1986 - FACE SWOLLEN , HIVES Home Medications Medication Instructions Recorded Confirmed Type aspirin 81 mg tablet,delayed 81 mg PO UD 08/22/19 02/15/23 History release (Adult Low Dose Aspirin) cholecalciferol (vitamin D3) 50 2,000 units PO QAM 08/22/19 02/15/23 History mcg (2,000 unit) capsule melatonin 5 mg capsule 10 mg PO HS PRN Sleep 08/22/19 02/15/23 History multivitamin 1 tab PO DAILY 08/22/19 02/15/23 History trazodone 50 mg tablet 50 mg PO HS 08/22/19 02/15/23 History zoledronic acid 5 mg/100 mL in See Rx Instructions IV .COMPLEX 08/31/19 02/15/23 Rx mannitol 5 %-water intravenous #100 mL piggybck (Reclast) cyanocobalamin (vitamin B-12) 1,000 mcg PO QAM 04/23/20 02/15/23 History 1,000 mcg tablet methylcellulose (laxative) 500 mg 500 mg PO DAILY 02/26/21 02/15/23 History tablet (Citrucel) vibegron 75 mg tablet (Gemtesa) 75 mg PO DAILY #30 tabs 02/23/23 Rx albuterol sulfate 90 mcg/actuation 2 inh inhalation QID PRN shortness 03/31/23 03/31/23 Rx aerosol inhaler of breath or wheezing #8.5 grams hydrochlorothiazide 12.5 mg tablet 6.25 mg PO QAM #45 tabs 04/16/23 Rx Past Med/Surg History Medical History Abnormal PFT Age related osteoporosis Back problem HERNIATED DISC LUMBAR SPINE Chronic obstructive pulmonary disease "MILD" Dyspnea History of uterine cancer Mild asthma with allergic rhinitis without complication Raynaud disease Raynauds phenomenon Vitamin D deficiency Surgical History History of colonoscopy History of D&C History of tooth extraction Hx of total hysterectomy with removal of both tubes and ovaries uterine cancer, surgical intervention only Family History Mother Breast cancer Brother Family history of diabetes mellitus Sister Family history of colon cancer Other No family history of adverse response to anesthesia Denies family history of Ovarian cancer Colorectal cancer Uterine cancer Social History Smoking Status: Never smoker Second Hand Exposure: No; Do You Dip or Chew Tobacco: No; Hx Alcohol Use: Yes Alcohol type: wine Hx Substance Use: No Preferred Language: Filipino Communication Ability: Effective Primary Substance Abuse Counselor Required: No Beliefs That Will Affect Care: None marital status: Current Living Situation: Spouse current occupational status: retired Other Information That Helps Us Care for You: No Feels Safe at Home: Yes Safety Concerns: Feels Safe At This Time Seatbelt Use: always Assistive Devices: Glasses Assistive Devices Comment: reading glasses Review of Systems Review of Systems: The patient denies chest pain, palpitations, shortness of breath, dyspnea on exertion, cough, lower extremity swelling, sore throat, sweats, vomiting, blood in urine or stool, dysuria, urinary frequency or urgency, lightheadedness, dizziness, headache, memory loss, loss of consciousness, rash, abnormal bruising or bleeding, imbalance, focal or generalized weakness, numbness or tingling in arms or legs, generalized arthralgias or myalgias, back or neck pain, or night sweats. The review of systems is otherwise negative other than for that already noted above, and at least 10 systems have been reviewed. Physical Exam Physical Exam: The patient is awake, alert and oriented 3, well developed and well nourished, normocephalic and atraumatic, lying in bed and in no acute distress. HEENT--PERRL, EOMI, mucous membranes and oropharynx mildly dry. Neck--supple. No JVD. No bruits. Thyroid normal, trachea midline, no adenopathy. Heart--normal S1 and S2. No murmurs, rubs or gallops. Lungs--clear bilaterally, no respiratory distress, no accessory muscle use. Abdomen--normal bowel sounds and soft. Tender left lower quadrant. Nondistended, no hernias or masses, no organomegaly. Extremities--no cyanosis or clubbing. No edema. Dermatologic--normal skin turgor, normal color, no abnormal lymph nodes, no rash. Neurologic--cranial nerves II through XII grossly intact. Rheumatologic--normal range of motion. Psychiatric--normal affect. Results & Data Results & Data Vital Signs (Past 12 Hours) Vital Signs Temp Pulse Pulse Resp BP BP Pulse Ox 08/20/23 23:53 36.8 C 74 16 115/75 99 08/20/23 23:17 82 20 94/55 L 99 08/20/23 22:25 80 08/20/23 22:23 37.6 C H 77 18 123/87 99 08/20/23 17:47 37.7 C H 79 16 123/71 97 O2 Del Method 08/20/23 23:53 Room Air 08/20/23 23:17 08/20/23 22:25 08/20/23 22:23 Room Air 08/20/23 17:47 Room Air Laboratory Results Laboratory Results WBC 11.20 K/ul (4.8-10.8) H 08/20/23 19:35 RBC 4.26 M/uL (4.20-5.40) 08/20/23 19:35 Hgb 12.5 g/dl (12.0-16.0) 08/20/23 19:35 Hct 35.8 % (37.0-47.0) L 08/20/23 19:35 MCV 84.0 fL (80.0-100.0) 08/20/23 19:35 MCH 29.3 pg (25.0-34.0) 08/20/23 19:35 MCHC 34.9 g/dL (32.0-36.0) 08/20/23 19:35 RDW Std Deviation 37.2 fL (36.4-46.3) 08/20/23 19:35 RDW Coeff of [place] 12.3 % (11.5-14.5) 08/20/23 19:35 Plt Count 270 K/uL (130-400) 08/20/23 19:35 MPV 8.7 fL (9.4-12.4) L 08/20/23 19:35 Immature Gran % (Auto) 0.6 % 08/20/23 19:35 Neut % (Auto) 80.2 % 08/20/23 19:35 Lymph % (Auto) 10.9 % 08/20/23 19:35 [place] % (Auto) 6.6 % 08/20/23 19:35 Eos % (Auto) 1.3 % 08/20/23 19:35 Baso % (Auto) 0.4 % 08/20/23 19:35 Neut # (Auto) 8.99 K/uL (1.40-6.50) H 08/20/23 19:35 Lymph # (Auto) 1.22 K/uL (1.20-3.40) 08/20/23 19:35 [place] # (Auto) 0.74 K/uL (0.11-0.59) H 08/20/23 19:35 Eos # (Auto) 0.14 K/uL (0.00-0.50) 08/20/23 19:35 Baso # (Auto) 0.04 K/uL (0.00-0.20) 08/20/23 19:35 Immature Gran # (Auto) 0.07 K/uL (0.01-0.20) 08/20/23 19:35 Sodium 132 mmol/L (136-145) L 08/20/23 19:35 Potassium 3.8 mmol/L (3.5-5.1) 08/20/23 19:35 Chloride 102 mmol/L (98-107) 08/20/23 19:35 Carbon Dioxide 25 mmol/L (21-32) 08/20/23 19:35 Anion Gap 5 (3-11) 08/20/23 19:35 BUN 16 mg/dl (6-23) 08/20/23 19:35 Creatinine 0.73 mg/dl (0.6-1.2) 08/20/23 19:35 Est Cr Clr Drug Dosing 54.6 ml/min 08/20/23 19:35 Est GFR ( Amer) 96.0 ml/min 08/20/23 19:35 Est GFR (Non-Af Amer) 82.9 ml/min 08/20/23 19:35 BUN/Creatinine Ratio 21.9 (10-20) H 08/20/23 19:35 Glucose 116 mg/dl (70-99(Fasting)) H 08/20/23 19:35 Lactate 0.8 mmol/L (0.4-2.0) 08/20/23 23:38 Calcium 9.6 mg/dl (8.6-10.3) 08/20/23 19:35 Total Bilirubin 0.5 mg/dl (0.2-1.0) 08/20/23 19:35 AST 17 U/L (13-39) 08/20/23 19:35 ALT 10 U/L (7-52) 08/20/23 19:35 Alkaline Phosphatase 47 U/L (34-104) 08/20/23 19:35 Total Protein 7.7 gm/dl (6.0-8.3) 08/20/23 19:35 Albumin 4.5 gm/dl (3.4-5.0) 08/20/23 19:35 Globulin 3.2 gm/dl (2.5-4.0) 08/20/23 19:35 Albumin/Globulin Ratio 1.4 (0.9-2) 08/20/23 19:35 Urine Color Yellow 08/20/23 19:35 Urine Appearance Cloudy (Clear) A 08/20/23 19:35 Urine pH 6.5 (4.5-7.5) 08/20/23 19:35 Ur Specific [place] 1.017 (1.000-1.030) 08/20/23 19:35 Urine Protein Trace (Negative) H 08/20/23 19:35 Urine Glucose (UA) Negative (Negative) 08/20/23 19:35 Urine Ketones Negative (Negative) 08/20/23 19:35 Urine Blood Trace (Negative) H 08/20/23 19:35 Urine Nitrite Positive (Negative) A 08/20/23 19:35 Urine Bilirubin Negative (Negative) 08/20/23 19:35 Urine Urobilinogen Negative (Negative) 08/20/23 19:35 Ur Leukocyte Esterase 3+ (Negative) H 08/20/23 19:35 Urine WBC (Auto) >30 /hpf (0-5) H 08/20/23 19:35 Urine RBC (Auto) 0-4 /hpf (0-4) 08/20/23 19:35 U Hyaline Cast (Auto) 1-5 /lpf (0-5) 08/20/23 19:35 U Epithel Cells (Auto) 5-10 /lpf (0-5) H 08/20/23 19:35 Urine Bacteria (Auto) Negative (Negative) 08/20/23 19:35 Urine Yeast Not Reportable 08/20/23 19:35 Impressions Abdomen/Pelvis CT 08/20/23 17:49 Exam(s): CT ABDOMEN + PELVIS With Contrast IV Amt: 93ML OPTIRAY 320 EXAM: CT Abdomen and Pelvis With Intravenous Contrast CLINICAL HISTORY: Reason for exam: LLQ abd pain. TECHNIQUE: Axial computed tomography images of the abdomen and pelvis with intravenous contrast. CTDI is 9.29 mGy and DLP is 430.12 mGy-cm. Automated exposure control was utilized for the study. A dose lowering technique was utilized adhering to the principles of ALARA. CONTRAST: Patient received 93ML OPTIRAY 320 of IV contrast COMPARISON: CT abdomen/pelvis on 08/04/2022 FINDINGS: Lung bases: Nonspecific 3 mm subpleural nodule along the posterior left lower lobe. Nonspecific 2 mm nodule in the right lower lobe. If patient is at low risk, no further follow-up is necessary. If patient is at high risk, consider follow-up CT in 12 months. ABDOMEN: Liver: Mild hepatomegaly. Gallbladder and bile ducts: Unremarkable. No calcified stones. No ductal dilation. Pancreas: Unremarkable. No mass. No ductal dilation. Spleen: Small splenule. Adrenals: Unremarkable. No mass. Kidneys and ureters: Unremarkable. No hydronephrosis or obstructing stone. Stomach and bowel: Diverticulosis. Wall thickening of the sigmoid colon is concerning for diverticulitis or colitis. Fluid and gas-filled small bowel loops may represent enteritis in the appropriate clinical setting. Evaluation of the stomach is limited by underdistention. PELVIS: Appendix: No findings to suggest acute appendicitis. Bladder: Mild prominence of the bladder wall is nonspecific. Please correlate with urinalysis to evaluate for cystitis. Reproductive: Prior hysterectomy. ABDOMEN and PELVIS: Intraperitoneal space: Small amount of fluid in the right abdomen and pelvis. No free air. Bones/joints: Degenerative changes of the spine. Minimal grade 1 anterolisthesis of L3 on L4. No acute fracture. No dislocation. Soft tissues: Unremarkable. Vasculature: Phleboliths in the pelvis. Atherosclerotic changes of the vasculature. No aortic aneurysm or dissection. Lymph nodes: Unremarkable. No enlarged lymph nodes. IMPRESSION: 1. Diverticulosis. Wall thickening of the sigmoid colon is concerning for diverticulitis or colitis. Further evaluation could be performed with colonoscopy during follow up if clinically indicated. 2. Fluid and gas-filled small bowel loops may represent enteritis in the appropriate clinical setting. 3. Mild prominence of the bladder wall is nonspecific. Please correlate with urinalysis to evaluate for cystitis. 4. Small amount of fluid in the right abdomen and pelvis. 5. Nonspecific 3 mm subpleural nodule along the posterior left lower lobe. Nonspecific 2 mm nodule in the right lower lobe. If patient is at low risk, no further follow-up is necessary. If patient is at high risk, consider follow-up CT in 12 months. Electronically signed by: Nereyda Morales M.D. 08/20/23 21:56 PM Code Status & VTE Plan Code Status Full code VTE Prophylaxis Plan VTE Prophylaxis will be ordered: Yes PG Care Time/CCT Total # of Minutes Spent Total Time Spent with Patient: Total time spent is greater than 50% in coordination of care (as documented) at patient's floor/unit and/or counseling patient: Coding Level of Care Code 37407 INT INP/OBS CARE 375MIN Diagnoses Sigmoid diverticulitis K57.32 Acute UTI N39.0 Cystitis N30.90 Insomnia G47.00
[2023-08-21] MEDS: PIPERACILLIN/TAZOBACTAM 4.5 GM in DEXTROSE 5% MINI-B 100 ML IV SCH ×2 (03:57→12:28)
[2023-08-21 08:03] LABS: Basophils # (auto) 0.03 K/uL (0.00-0.20); Basophils % (auto) 0.5 %; Eosinophils # (auto) 0.16 K/uL (0.00-0.50); Eosinophils % (auto) 2.4 %; Hematocrit (blood only) 32.8 % (37.0-47.0); Hemoglobin 10.9 g/dl (12.0-16.0); Immature Granulocytes # (auto) 0.02 K/uL (0.01-0.20); Immature Granulocytes % (auto) 0.3 %; Lymphocytes # (auto) 0.87 K/uL (1.20-3.40); Lymphocytes % (auto) 13.2 %; Mean Corpuscular Hgb Conc 33.2 g/dL (32.0-36.0); Mean Corpuscular Volume 87.2 fL (80.0-100.0); Mean Platelet Volume 8.8 fL (9.4-12.4); Monocytes # (auto) 0.38 K/uL (0.11-0.59); Monocytes % (auto) 5.8 %; Neutrophils # (auto) 5.13 K/uL (1.40-6.50); Neutrophils % (auto) 77.8 %; Platelet Count 207 K/uL (130-400); RDW Coefficient of Variation 12.1 % (11.5-14.5); RDW Standard Deviation 38.8 fL (36.4-46.3); Red Blood Count 3.76 M/uL (4.20-5.40); White Blood Count 6.59 K/ul (4.8-10.8)
[2023-08-21 08:29] LABS: Albumin Level 3.7 gm/dl (3.4-5.0); BUN Creatinine Ratio 14.9 (10-20); Calcium 8.7 mg/dl (8.6-10.3); Creatinine Clr Calc Pharmacy 57.4 ml/min; Est GFR (African American) 94.5 ml/min; Est GFR (Non-African American) 81.5 ml/min; Phosphorus 2.9 mg/dl (2.5-4.9); Potassium 4.1 mmol/L (3.5-5.1)
[2023-08-21] MEDS ORDERED: VIBEGRON 75 MG TAB PO SCH (09:00)
[2023-08-21] MEDS ORDERED: CHOLECALCIFEROL 1,000 UNITS 25 MCG TAB PO SCH (09:00)
[2023-08-21] MEDS ORDERED: CYANOCOBALAMIN (B-12) 500 MCG TABLET PO SCH (09:00)
--- NOTE | 2023-08-21 16:38 | Discharge Summary ---
Date of Service August 21, 2023 Admission HPI Per Admitting Provider The patient is a 73-year-old female with a past medical history including Raynaud's phenomenon nocturia hypercalciuria endometrial stromal neoplasm, cystitis, hyponatremia, B12 deficiency, insomnia, bladder spasm and hypertension. The patient presents to the emergency department symptoms as noted above. CT scan of abdomen pelvis shows sigmoid diverticulitis and possible enteritis. Bladder wall was mildly thickened, with concern of Bryer regarding possible cystitis small pulmonary nodules noted Significant laboratories: WBC 11.20, sodium 132, glucose 116 From the ED patient received the following: Zosyn 4.5 g IV and Zofran 4 mg IV Admission Exam Per Admitting Provider The patient is awake, alert and oriented 3, well developed and well nourished, normocephalic and atraumatic, lying in bed and in no acute distress. HEENT--PERRL, EOMI, mucous membranes and oropharynx mildly dry. Neck--supple. No JVD. No bruits. Thyroid normal, trachea midline, no adenopathy. Heart--normal S1 and S2. No murmurs, rubs or gallops. Lungs--clear bilaterally, no respiratory distress, no accessory muscle use. Abdomen--normal bowel sounds and soft. Tender left lower quadrant. Nondistended, no hernias or masses, no organomegaly. Extremities--no cyanosis or clubbing. No edema. Dermatologic--normal skin turgor, normal color, no abnormal lymph nodes, no rash. Neurologic--cranial nerves II through XII grossly intact. Rheumatologic--normal range of motion. Psychiatric--normal affect. Principal Diagnosis Diverticulitis Discharge Exam Constitutional WD/WN, vitals as above Eyes + anicteric sclerae; no conjunctival abnormality ENMT Ears: no external ear abnormality Nose: no external nose abnormality Moist mucous membranes Respiratory normal respiratory effort, lungs clear to auscultation Cardiovascular Rate/Rhythm: regular rate and regular rhythm Extremities: no edema Gastrointestinal (Abdomen) Abdomen soft, nondistended. +Bowel sounds. Tender to palpation at LLQ and RLQ Skin no rashes, warm and dry Psychiatric A+Ox3, euthymic affect Discharge Data Allergies Allergy/AdvReac Type Severity Reaction Status Date / Time alendronate sodium Allergy Intermediate HEART Verified 02/15/23 13:46 BEATS REALLY FAST MUSCLE RELAXER Allergy Intermediate ? Verified 02/15/23 13:46 MEDICATION NAME, 1986 - FACE SWOLLEN , HIVES Consultations 08/20/23 23:17 ED Decision to Admit Stat Ordered Studies 08/20/23 17:49 CT abd pelvis IV con only Stat Abdomen/Pelvis CT 08/20/23 17:49 Exam(s): CT ABDOMEN + PELVIS With Contrast IV Amt: 93ML OPTIRAY 320 EXAM: CT Abdomen and Pelvis With Intravenous Contrast CLINICAL HISTORY: Reason for exam: LLQ abd pain. TECHNIQUE: Axial computed tomography images of the abdomen and pelvis with intravenous contrast. CTDI is 9.29 mGy and DLP is 430.12 mGy-cm. Automated exposure control was utilized for the study. A dose lowering technique was utilized adhering to the principles of ALARA. CONTRAST: Patient received 93ML OPTIRAY 320 of IV contrast COMPARISON: CT abdomen/pelvis on 08/04/2022 FINDINGS: Lung bases: Nonspecific 3 mm subpleural nodule along the posterior left lower lobe. Nonspecific 2 mm nodule in the right lower lobe. If patient is at low risk, no further follow-up is necessary. If patient is at high risk, consider follow-up CT in 12 months. ABDOMEN: Liver: Mild hepatomegaly. Gallbladder and bile ducts: Unremarkable. No calcified stones. No ductal dilation. Pancreas: Unremarkable. No mass. No ductal dilation. Spleen: Small splenule. Adrenals: Unremarkable. No mass. Kidneys and ureters: Unremarkable. No hydronephrosis or obstructing stone. Stomach and bowel: Diverticulosis. Wall thickening of the sigmoid colon is concerning for diverticulitis or colitis. Fluid and gas-filled small bowel loops may represent enteritis in the appropriate clinical setting. Evaluation of the stomach is limited by underdistention. PELVIS: Appendix: No findings to suggest acute appendicitis. Bladder: Mild prominence of the bladder wall is nonspecific. Please correlate with urinalysis to evaluate for cystitis. Reproductive: Prior hysterectomy. ABDOMEN and PELVIS: Intraperitoneal space: Small amount of fluid in the right abdomen and pelvis. No free air. Bones/joints: Degenerative changes of the spine. Minimal grade 1 anterolisthesis of L3 on L4. No acute fracture. No dislocation. Soft tissues: Unremarkable. Vasculature: Phleboliths in the pelvis. Atherosclerotic changes of the vasculature. No aortic aneurysm or dissection. Lymph nodes: Unremarkable. No enlarged lymph nodes. IMPRESSION: 1. Diverticulosis. Wall thickening of the sigmoid colon is concerning for diverticulitis or colitis. Further evaluation could be performed with colonoscopy during follow up if clinically indicated. 2. Fluid and gas-filled small bowel loops may represent enteritis in the appropriate clinical setting. 3. Mild prominence of the bladder wall is nonspecific. Please correlate with urinalysis to evaluate for cystitis. 4. Small amount of fluid in the right abdomen and pelvis. 5. Nonspecific 3 mm subpleural nodule along the posterior left lower lobe. Nonspecific 2 mm nodule in the right lower lobe. If patient is at low risk, no further follow-up is necessary. If patient is at high risk, consider follow-up CT in 12 months. Electronically signed by: Nereyda Morales M.D. 08/20/23 21:56 PM Hospital Course (1) Sigmoid diverticulitis: (2) Diverticulitis: Plan Sigmoid diverticulitis Patient reports that she had sudden onset abdominal pain and nausea that began on evening. Patient was started on IVF and Zosyn. Was able to tolerate a liquid diet and progressed to solid foods without difficulty. Will transition to Augmentin BID x10 days. Discussed need for low residue diet once discharged and then gradually resuming her usual diet. Patient has additional GI symptoms over the past year including dark, sticky stools. Anticipate need for colonoscopy as outpatient, will coordinate with PCP. Cystitis Patient does not have any urinary symptoms at present, urine culture growing gram positive cocci. Continue antibiotics as above. Continue vibegron Insomnia/anxiety Continue melatonin, trazodone Total Time Total Time Spent Total Time Spent (In Minutes): .<30 Discharge Plan Discharge Items Patient Disposition: Home - Self-Care Reason For Visit: SIGMOID DIVERTICULITIS Discharge Diagnosis: Diverticulitis Condition on Discharge: Good Activity: Per Instructions section Non-emergency contact: Primary Care Provider Call non-emergency contact if: you have any medication questions and your symptoms worsen Follow-up/Referrals: Robin Manriquez, [Primary Care Provider] - Diet: Regular and Low Fiber Addtl Attending Provider Instructions: Chelsie, you were admitted to the hospital for abdominal pain and imaging studies confirmed a diagnosis of diverticulitis. Fortunately your symptoms have improved on IV antibiotics and IV fluids and you are also tolerating food. * For your diverticulitis we have sent a prescription for the antibiotic, Augmentin, which you will take 1 tablet every 12 hours for 10 days. You should take your first dose tonight. This was sent to your pharmacy. * You can progress your diet as tolerated, but should wait 2-4 days before slowly increasing your fiber intake. Hold your Citrucel until after your symptoms have resolved and you are able to reintroduce fiber into your diet. * The [facility] Medicine office will give you a call next week to schedule your hospital discharge follow up appointment. As we discussed, your other gastrointestinal symptoms will likely require additional testing like a colonoscopy as an outpatient. Your primary care team will help coordinate this. Thank you for allowing us to participate in your care. Pending Studies at Discharge: No Stand-Alone Forms: My [facility] Next Games, Smoking Cessation Medications and DC Order Prescriptions: New amoxicillin-pot clavulanate 875-125 mg tablet 1 tab PO Q12H 10 Days Qty: 20 0RF Continued Gemtesa 75 mg tablet 75 mg PO DAILY Qty: 30 2RF hydrochlorothiazide 12.5 mg tablet 6.25 mg PO QAM Qty: 45 1RF cyanocobalamin (vitamin B-12) 1,000 mcg tablet 1,000 mcg PO QAM aspirin [Adult Low Dose Aspirin] 81 mg tablet,delayed release (DR/EC) 81 mg PO UD Rx Instructions: three times a week melatonin 5 mg capsule 10 mg PO HS PRN (Reason: Sleep) multivitamin tablet 1 tab PO DAILY trazodone 50 mg tablet 50 mg PO HS cholecalciferol (vitamin D3) 2,000 unit capsule 2,000 units PO QAM zoledronic [id number] [Reclast] 5 mg/100 mL piggyback See Rx Instructions IV .COMPLEX Qty: 100 0RF Dose Instruction: IV ; Rx Instructions: taken once a year, last dose 10/2020 albuterol sulfate 90 mcg/actuation HFA aerosol inhaler 2 inh inhalation QID PRN (Reason: shortness of breath or wheezing) Qty: 8.5 2RF No Action Citrucel 500 mg Tablet 500 mg PO DAILY Discharge Orders: Discharge Order (Routine); Ordered 08/21/23 Ordered By: Kennedi Carson/Other Patient Handouts: Low-Fiber Diet, Diverticulitis Dc Admission Data Admit Date/Time: 08/20/23 23:04 Attending Provider: Frank Bautista Admit Provider: Nathen Pulliam Primary Care Provider: Robin Manriquez Other Providers: Nathen Pulliam Other Interventions: Discharge Summary Assessment (RN) Last Done: 08/21/23 17:16 Supervising Physician Co-Signing Physician Notes I personally examined the patient and verified all cohn points of history and exam, discussed case, and agree with decision making with Dr Washington feeling better. Able to eat. Still has a lot of pain, but feels like she would do okay at home. Vitals noted, in general she is awake and alert pleasant no distress. HEENT normocephalic atraumatic mucous membranes moist. Breathing unlabored no accessory muscle use good effort. Skin shows no rashes no pallor or icterus. Neuro without focal deficits. Diverticulitisimproving, tolerating p.o.safe for home. P.o. Augmentin. In regards to her tarry stoolscolonoscopy to be scheduled as an outpatient. In regards to her episodes of abdominal pain and nauseadiscussed being seen right at an episode or immediately thereafter is likely to have more yield, close PCP follow-up in that respect
--- NOTE | 2023-08-21 19:26 | Billing Data ---
Date of Service August 21, 2023 Coding Level of Care Code 19576 IN/OBS DISCH 30 MIN/LESS
[2023-08-21] MEDS ORDERED: traZODone HCL 50 MG TAB PO SCH (21:00)
[2023-08-23] MEDS ORDERED: ASPIRIN 81 MG ECTAB PO SCH (09:00)
== END 2023-08-21 18:52 | disposition home or self-care (01) ==
LOC: 3N 17:00 → ED 17:00 → SUATTDRO 23:04 → 3N 23:33

== ENCOUNTER 2024-11-05 17:06 | Observation (INO) ==
[2024-11-05 18:01] LABS: Basophils # (auto) 0.04 K/uL (0.00-0.20); Basophils % (auto) 0.5 %; Eosinophils # (auto) 0.11 K/uL (0.00-0.50); Eosinophils % (auto) 1.3 %; Hematocrit (blood only) 34.8 % (37.0-47.0); Hemoglobin 11.9 g/dl (12.0-16.0); Immature Granulocytes # (auto) 0.02 K/uL (0.01-0.20); Immature Granulocytes % (auto) 0.2 %; Lymphocytes # (auto) 1.24 K/uL (1.20-3.40); Lymphocytes % (auto) 14.8 %; Mean Corpuscular Hemoglobin 28.9 pg (25.0-34.0); Mean Corpuscular Hgb Conc 34.2 g/dL (32.0-36.0); Mean Corpuscular Volume 84.5 fL (80.0-100.0); Mean Platelet Volume 8.4 fL (9.4-12.4); Monocytes # (auto) 0.46 K/uL (0.11-0.59); Monocytes % (auto) 5.5 %; Neutrophils # (auto) 6.51 K/uL (1.40-6.50); Neutrophils % (auto) 77.7 %; Platelet Count 238 K/uL (130-400); RDW Coefficient of Variation 12.5 % (11.5-14.5); Red Blood Count 4.12 M/uL (4.20-5.40); White Blood Count 8.38 K/ul (4.8-10.8)
[2024-11-05 18:18] LABS: Albumin Globulin Ratio 1.4 (0.9-2); Albumin Level 4.2 gm/dl (3.4-5.0); BUN Creatinine Ratio 16.4 (10-20); Bilirubin,Total 0.5 mg/dl (0.2-1.0); Calcium 9.1 mg/dl (8.6-10.3); Creatinine Clr Calc Pharmacy 59.5 ml/min; Globulin 3.1 gm/dl (2.5-4.0); Potassium 3.8 mmol/L (3.5-5.1); Total Protein 7.3 gm/dl (6.0-8.3)
--- NOTE | 2024-11-05 18:20 | XRay Report ---
EXAM: Radiograph of the Chest 1 View INDICATION: Chest pain. TECHNIQUE: Frontal view of the chest. COMPARISON: 10/18/2024 FINDINGS: Lungs and pleural spaces: No consolidation or pulmonary edema. No pleural effusion or pneumothorax. Heart: Shape and configuration within normal limits allowing for technique. Mediastinum: Normal contour. Bones/joints: No fracture, erosion or dislocation. Soft tissues: No abnormality noted. No radiopaque foreign body noted. Upper abdomen: No abnormality noted. IMPRESSION: No abnormality noted. ACT 112: Negative or not required by law. Electronically signed by Jonelle Galvez 11-05-2024 6:19 PM
[2024-11-05 18:24] LABS: Troponin I High Sensitivity 3.4 pg/ml (0-14)
[2024-11-05 18:31] LABS: Partial Thromboplastin Ratio 0.9; Partial Thromboplastin Time 25 Seconds (21-31); Prothrombin Time 10.6 Seconds (9.0-12.0)
[2024-11-05] MEDS: OPTIRAY 320 100ml IV ONE (20:07)
--- NOTE | 2024-11-05 20:27 | Emergency Department Note ---
Impression & Plan Fall, Syncope and collapse, Closed left scapular fracture, Contusion of face ED Provider Note Provider: Nahum Wagner MD CHIEF COMPLAINT: Syncope, left arm pain, face bruising and headache HISTORY OF PRESENT ILLNESS: Patient is a 74-year-old female past medical history of diverticulitis, Raynaud's, hyponatremia, B12 deficiency, and hypertension presenting here today with . Patient was well yesterday and last night. Awoke this morning and around 6:40 AM try to get out of bed to go to the bathroom. Stood up and immediately passed out fell to the ground. heard the fall and went to see her. She was easily arousable and assisted up to bed. Then time to get up again and had a second syncopal event. Rest of the bed briefly with and then proceeded to the bathroom. Was washing her hands and had a third syncopal events. noted she seemed a bit weak and limp and caught her but not before her face hit off the bathroom vanity. Was able to awaken and take her back to bed where she rested throughout the day. Complaining of significant pain to the left arm. Maybe some slight soreness to the right knee. Some bruising noted over the eyes and face with maybe some slight mid forehead numbness. No nausea or vomiting. Did not eat and drink some today. No recent significant illnesses. Complaining of some anterior and face pain as well as some significant pain to the left upper and left forearm. Pain with trying to extend the left arm. Was able to get changed into pants and ambulate and come here for further evaluation. Is having a little bit of neck pain. No numbness or tingling in extremities. Patient denies doing any events having any prodromal symptoms or palpitations or warm sensation. No significant history of syncope reported. PAST MEDICAL HISTORY: As noted above MEDICATIONS: Reviewed home medications on aspirin SOCIAL HISTORY: lives at home PHYSICAL EXAM: GENERAL: alert and oriented in no acute distress on stretcher Head: Patient EYES: No injection, discharge or icterus. PERRL, EOMI. NECK: Trachea midline. Supple without midline cervical tenderness ENT: Mucous membranes pink and moist. LUNGS: Airway patent. No retractions. Breath sounds clear with good air entry bilaterally. HEART: Regular rate and rhythm. Some slight left chest wall tenderness without crepitus ABDOMEN: Soft and non-tender other than maybe a little bit in left upper quadrant, without guarding or rebound. No masses with a stable pelvis SKIN: Acyanotic, warm, dry, without rashes EXTREMITIES: Without swelling, tenderness or deformity of the right upper arm or left lower leg. The right leg has a little bit of contusion to the right anterior knee but good range of motion no bony tenderness. The left forearm has some contusion but soft compartments here. Mild diffuse tenderness without significant snuffbox tenderness of the wrist. Able to range the elbow but significant pain in the left upper arm mid humeral in nature. NEUROLOGICAL: No focal deficits. No aphasia. No facial droop or slurred speech. Normal strength and tone in the extremities. Sensation to gross touch normal. Ambulatory. EK bpm normal sinus rhythm. No PVC or PAC. No acute ST segment elevation or depression with a QTc of 414 CONTINUOUS CARDIAC MONITORING: was ordered and showed a heart rate of 60s to 70s bpm in normal sinus rhythm GCS 15. Patient's laboratory studies and imaging reviewed. Differential includes Vasovagal event, dehydration, infection, hypoglycemia, electrolyte abnormalities, cardiac sources, intracerebral event, pulmonary embolism, seizure, toxicologic, neurologic, as well as other pathologies. IMPRESSION/MEDICAL DECISION MAKING: Regards to the traumatic injuries from the syncopes does have some facial bruising slight abrasion above the eyes but no lacerations. Extraocular motions appear intact and I doubt any orbital hematoma. No evidence of any septal hematoma or obvious dental injury. Little bit of soreness of the neck and given the fall CT of the head, face, and neck will be obtained. Some left chest wall tenderness reported as well just overlying the left upper quadrant. As such CT scan will be obtained here. From triage EKG and basic blood work obtained without significant electrolyte abnormality, signs of renal dysfunction, troponin elevation or signs of ACS, or anemia. No fever or other significant illness recently reported. Will obtain x-rays of the left forearm and humerus but doubt wrist or elbow fracture. No evidence of compartment syndrome on exam. Little bruise to the right knee but no evidence of any significant deformity or tenderness and I doubt fracture. Did have some Tylenol this morning. Given some Tylenol now. Nursing is placed in c-collar given low bit of neck pain and will maintain until imaging obtained. CT image of the head, face, and cervical spine shows per report without evidence of intracranial bleed, cervical spine or facial fracture. CT imaging of the chest abdomen pelvis per report shows isolated left scapular body fracture without other reported trauma. X-ray of the left upper arm and left forearm shows no fractures noted. Likely referred pain from the scapular fracture. Sling ordered. Given some additional Toradol for pain. Unsure what is prompted these 3 syncopal type episodes this morning. She is otherwise been well. Blood work reassuring. Will send a UA but no significant urinary symptoms reported. UA negative. Given some IV fluids here. Do have concerns given that her current syncopal episodes. Does not sound like CVA or seizure. Given that this happened 3 times, discussed with the patient staying for further syncope workup and pain control with her scapular fracture. Patient was ambulatory here without repeat syncope. Shared decision making she was agreeable to stay. Hospitalist contacted. DIAGNOSIS: Fall, syncopes, left scapular fracture DISPOSITION: Hospitalist will evaluate Patient was agreeable with this plan. Past Med/Surg History Problem List (Updated 11/05/24 @ 22:29 by Nahum Wagner M.D.) Contusion of face (Acute) Closed left scapular fracture (Acute) Syncope and collapse (Acute) Fall (Acute) Insomnia Sigmoid diverticulitis Diverticulitis (Acute) Acute UTI (Acute) Urinary frequency Dyspnea Raynauds phenomenon Abnormal PFT Nocturia Discharge planning issues DVT prophylaxis Osteoporosis (Chronic) Hypercalciuria (Chronic) Dyspnea Fibroid, uterine Postmenopausal bleeding Abnormal ultrasound of endometrium Encounter for pre-operative examination Endometrial stromal neoplasm Acute hyponatremia (Acute) Cystitis (Acute) Medical History History of uterine cancer Chronic obstructive pulmonary disease "MILD" Raynaud disease Back problem HERNIATED DISC LUMBAR SPINE Age related osteoporosis Vitamin D deficiency Mild asthma with allergic rhinitis without complication Surgical History History of colonoscopy History of D&C History of tooth extraction Hx of total hysterectomy with removal of both tubes and ovaries uterine cancer, surgical intervention only Family History Mother Breast cancer Brother Family history of diabetes mellitus Sister Family history of colon cancer Other No family history of adverse response to anesthesia Denies family history of Ovarian cancer Colorectal cancer Uterine cancer Social History Smoking Status: Former smoker Second Hand Exposure: No; Do You Dip or Chew Tobacco: No; Hx Alcohol Use: Yes Alcohol type: wine Hx Substance Use: No Preferred Language: Slovak Communication Ability: Effective Residential Driver Required: No Beliefs That Will Affect Care: None marital status: Current Living Situation: Spouse current occupational status: retired Feels Safe at Home: Yes Seatbelt Use: always Assistive Devices: Glasses Allergies Allergies Allergy/AdvReac Type Severity Reaction Status Date / Time alendronate sodium Allergy Intermediate HEART Verified 10/23/24 13:57 BEATS REALLY FAST MUSCLE RELAXER Allergy Intermediate ? Verified 10/23/24 13:57 MEDICATION NAME, 1986 - FACE SWOLLEN , HIVES Home Meds Home Medications Medication Instructions Recorded Confirmed aspirin 81 mg tablet,delayed 81 mg PO UD 08/22/19 10/23/24 release (Adult Low Dose Aspirin) cholecalciferol (vitamin D3) 50 2,000 units PO QAM 08/22/19 10/23/24 mcg (2,000 unit) capsule multivitamin 1 tab PO DAILY 08/22/19 10/23/24 cyanocobalamin (vitamin B-12) 1,000 mcg PO QAM 04/23/20 10/23/24 1,000 mcg tablet methylcellulose (laxative) 500 mg 500 mg PO DAILY 02/26/21 10/23/24 tablet (Citrucel) trazodone 150 mg tablet 150 mg PO HS 01/19/24 10/23/24 zinc 10 mg tablet 10 mg PO DAILY 05/04/24 10/23/24 Previous Rx's Medication Instructions Recorded albuterol sulfate 90 mcg/actuation 2 inh inhalation QID PRN shortness 03/31/23 aerosol inhaler of breath or wheezing #8.5 grams hydrochlorothiazide 12.5 mg tablet 6.25 mg (1/2 x 12.5 mg) PO QAM #45 06/05/24 tabs [id number] 210 mg/2.34 210 mg (2.34 mL) subcut MONTHLY 10/24/24 mL(105 mg/1.17 mL x2)subcutaneous #2.34 mL syringe (Evenity) Results & Data (ED) Vital Signs Vital Signs - 24 hr 11/05/24 17:23 11/05/24 19:17 11/05/24 19:17 Temperature 37.1 C Temperature Source Temporal Artery Scan Pulse Rate 73 Pulse Rate [Apical] 74 Pulse Rhythm Pulse Rhythm [Apical] Regular Pulse Strength [Apical] Respiratory Rate 20 20 Respiratory Effort / Characteristics Non-Labored Spontaneous Respiratory Depth Normal Respiratory Pattern Regular Blood Pressure 119/82 Blood Pressure [Right Arm] 145/90 H Blood Pressure Mean 94 Blood Pressure Mean [Right Arm] 108 Blood Pressure Position [Right Arm] Pulse Oximetry 98 98 98 Oxygen Delivery Method Room Air Room Air Sepsis Recent Fever Within 48 Hours No Sepsis New/Unexplained Change in Mental Status N/A Sepsis Action Taken by Nursing No Action Required 11/05/24 19:17 11/05/24 21:02 11/05/24 21:25 Temperature Temperature Source Pulse Rate 74 81 Pulse Rate [Apical] 84 Pulse Rhythm Regular Pulse Rhythm [Apical] Regular Pulse Strength [Apical] Normal Respiratory Rate 20 20 Respiratory Effort / Characteristics Non-Labored Spontaneous Respiratory Depth Normal Respiratory Pattern Regular Blood Pressure Blood Pressure [Right Arm] 165/100 H Blood Pressure Mean Blood Pressure Mean [Right Arm] 121 Blood Pressure Position [Right Arm] Sitting Pulse Oximetry 98 94 Oxygen Delivery Method Room Air Room Air Sepsis Recent Fever Within 48 Hours Sepsis New/Unexplained Change in Mental Status Sepsis Action Taken by Nursing 11/05/24 23:00 11/06/24 00:30 Temperature Temperature Source Pulse Rate Pulse Rate [Apical] 70 75 Pulse Rhythm Pulse Rhythm [Apical] Pulse Strength [Apical] Respiratory Rate 17 17 Respiratory Effort / Characteristics Non-Labored Spontaneous Non-Labored Spontaneous Respiratory Depth Normal Normal Respiratory Pattern Regular Regular Blood Pressure Blood Pressure [Right Arm] 108/87 143/98 H Blood Pressure Mean Blood Pressure Mean [Right Arm] 94 113 Blood Pressure Position [Right Arm] Pulse Oximetry 96 95 Oxygen Delivery Method Room Air Room Air Sepsis Recent Fever Within 48 Hours Sepsis New/Unexplained Change in Mental Status Sepsis Action Taken by Nursing Laboratory Data 11/05/24 17:40 11/05/24 17:40 Lab Results 11/05/24 11/05/24 Range/Units 17:40 21:30 WBC 8.38 (4.8-10.8) K/ul RBC 4.12 L (4.20-5.40) M/uL Hgb 11.9 L (12.0-16.0) g/dl Hct 34.8 L (37.0-47.0) % MCV 84.5 (80.0-100.0) fL MCH 28.9 (25.0-34.0) pg MCHC 34.2 (32.0-36.0) g/dL RDW Std Deviation 38.0 (36.4-46.3) fL RDW Coeff of [place] 12.5 (11.5-14.5) % Plt Count 238 (130-400) K/uL MPV 8.4 L (9.4-12.4) fL Immature Gran % (Auto) 0.2 % Neut % (Auto) 77.7 % Lymph % (Auto) 14.8 % [place] % (Auto) 5.5 % Eos % (Auto) 1.3 % Baso % (Auto) 0.5 % Neut # (Auto) 6.51 H (1.40-6.50) K/uL Lymph # (Auto) 1.24 (1.20-3.40) K/uL [place]ander # (Auto) 0.46 (0.11-0.59) K/uL Eos # (Auto) 0.11 (0.00-0.50) K/uL Baso # (Auto) 0.04 (0.00-0.20) K/uL Immature Gran # (Auto) 0.02 (0.01-0.20) K/uL PT 10.6 (9.0-12.0) Seconds INR 1.0 (0.9-1.1) APTT 25 (21-31) Seconds PTT Ratio 0.9 Sodium 134 L (136-145) mmol/L Potassium 3.8 (3.5-5.1) mmol/L Chloride 103 (98-107) mmol/L Carbon Dioxide 26 (21-32) mmol/L Anion Gap 5 (3-11) BUN 11 (6-23) mg/dl Creatinine 0.67 (0.6-1.2) mg/dl Est Cr Clr Drug Dosing 59.5 ml/min eGFR 92.81 BUN/Creatinine Ratio 16.4 (10-20) Glucose 99 (70-99(Fasting)) mg/dl Calcium 9.1 (8.6-10.3) mg/dl Total Bilirubin 0.5 (0.2-1.0) mg/dl AST 20 (13-39) U/L ALT 12 (7-52) U/L Alkaline Phosphatase 45 (34-104) U/L Troponin I High Sens 3.4 (0-14) pg/ml Total Protein 7.3 (6.0-8.3) gm/dl Albumin 4.2 (3.4-5.0) gm/dl Globulin 3.1 (2.5-4.0) gm/dl Albumin/Globulin Ratio 1.4 (0.9-2) Urine Color Yellow Urine Appearance Clear (Clear) Urine pH 7.5 (4.5-7.5) Ur Specific [place] 1.015 (1.000-1.030) Urine Protein Negative (Negative) Urine Glucose (UA) Negative (Negative) Urine Ketones Negative (Negative) Urine Blood Negative (Negative) Urine Nitrite Negative (Negative) Urine Bilirubin Negative (Negative) Urine Urobilinogen Negative (Negative) Ur Leukocyte Esterase Negative (Negative) Administered Medications Discontinued Medications Acetaminophen (Acetaminophen 500 Mg Tab) 1,000 mg PO NOW STA Stop: 11/05/24 19:56 Last Admin: 11/05/24 20:41 Dose: 1,000 mg Documented By: LILI Sodium Chloride (Nss) 1,000 mls @ 999 mls/hr IV .Q1H1M ONE Stop: 11/05/24 21:26 Last Infusion: 11/05/24 22:27 Dose: Infused Documented By: Admin: 11/05/24 20:43 Dose: 999 mls/hr Documented By: LILI Ioversol (Optiray 320 100ml) 91 ml IV ONCE ONE Stop: 11/05/24 20:08 Last Admin: 11/05/24 20:07 Dose: 91 ml Documented By: CARLOS Ketorolac Tromethamine (Ketorolac Tromethamine 15 Mg/Ml Vial) 10 mg IV NOW ONE Stop: 11/05/24 22:57 Last Admin: 11/05/24 23:05 Dose: 10 mg Documented By: LILI Imaging Data Radiologist's Impression: Chest X-Ray 11/05/24 17:32 EXAM: Radiograph of the Chest 1 View INDICATION: Chest pain. TECHNIQUE: Frontal view of the chest. COMPARISON: 10/18/2024 FINDINGS: Lungs and pleural spaces: No consolidation or pulmonary edema. No pleural effusion or pneumothorax. Heart: Shape and configuration within normal limits allowing for technique. Mediastinum: Normal contour. Bones/joints: No fracture, erosion or dislocation. Soft tissues: No abnormality noted. No radiopaque foreign body noted. Upper abdomen: No abnormality noted. IMPRESSION: No abnormality noted. ACT 112: Negative or not required by law. Electronically signed by Jonelle Galvez 11-05-2024 6:[address] 11/05/24 19:42 Exam(s): CT C SPINE EXAM: CT Cervical Spine Without Intravenous Contrast CLINICAL HISTORY: Reason for exam: fall, pain. TECHNIQUE: Axial computed tomography images of the cervical spine without intravenous contrast. CTDI is 38.03 mGy and DLP is 2118.22 mGy-cm. Automated exposure control was utilized for the study. A dose lowering technique was utilized adhering to the principles of ALARA. COMPARISON: No relevant prior studies available. FINDINGS: Vertebrae: Unremarkable. No acute fracture. Discs/spinal canal/neural foramina: No acute findings. No spinal canal stenosis. Soft tissues: Prominent cervical lymph nodes. IMPRESSION: No evidence of acute cervical spine pathology. Electronically signed by: Aileen Candelario MD 11/05/24 22:[address] 11/05/24 19:42 Exam(s): CT HEAD Without Contrast EXAM: CT Head Without Intravenous Contrast CLINICAL HISTORY: Reason for exam: fall, syncope. TECHNIQUE: Axial computed tomography images of the head/brain without intravenous contrast. CTDI is 3803 mGy and DLP is 2118.22 mGy-cm. Automated exposure control was utilized for the study. A dose lowering technique was utilized adhering to the principles of ALARA. COMPARISON: No relevant prior studies available. FINDINGS: Brain: Unremarkable. No hemorrhage. No significant white matter disease. No edema. Ventricles: Unremarkable. No ventriculomegaly. Bones/joints: Unremarkable. No acute fracture. Soft tissues: Unremarkable. Sinuses: Unremarkable as chronic maxillary and ethmoid sinusitis. No acute sinusitis. Mastoid air cells: Unremarkable as visualized. No mastoid effusion. IMPRESSION: No evidence of acute intracranial pathology. Electronically signed by: Aileen Candelario MD 11/05/24 22:38 PM Abdomen/Pelvis CT 11/05/24 19:53 Exam(s): CT ABDOMEN + PELVIS With Contrast IV Amt: 91ML OPTIPRAY 320 EXAM: CT Abdomen and Pelvis With Intravenous Contrast CLINICAL HISTORY: Reason for exam: fall, L pain. TECHNIQUE: Axial computed tomography images of the abdomen and pelvis with intravenous contrast. CTDI is 38.03 mGy and DLP is 2118.22 mGy-cm. Automated exposure control was utilized for the study. A dose lowering technique was utilized adhering to the principles of ALARA. CONTRAST: Patient received 91ML OPTIPRAY 320 of IV contrast COMPARISON: 08/20/23 FINDINGS: Lung bases: A few pulmonary micronodules at the lung bases; no follow-up indicated per [employer] guidelines. Bibasilar subsegmental atelectasis. ABDOMEN: Liver: Stable subcentimeter hypodensities right liver, statistically cysts. No evidence of liver injury. Gallbladder and bile ducts: Unremarkable. No calcified stones. No ductal dilation. Pancreas: Unremarkable. No ductal dilation. No evidence of pancreatic injury. Spleen: Unremarkable. No evidence of splenic injury. Adrenals: Unremarkable. No evidence of adrenal injury. Kidneys and ureters: Unremarkable. No hydronephrosis. No evidence of renal injury. Stomach and bowel: No evidence of bowel injury. Diverticulosis. No obstruction. No mucosal thickening. PELVIS: Appendix: No evidence of appendicitis. Bladder: Unremarkable. No evidence of bladder injury. Reproductive: Unremarkable as visualized. ABDOMEN and PELVIS: Intraperitoneal space: Small volume of free pelvic fluid, low density. No free air. Bones/joints: Osteopenia. Degenerative change in lumbar spine. No acute fracture or dislocation. Soft tissues: Unremarkable. Vasculature: Atherosclerosis. No evidence of vascular injury. No aneurysm. Lymph nodes: Unremarkable. No enlarged lymph nodes. IMPRESSION: No acute traumatic findings. Electronically signed by: Edel Eduardo M.D. 11/05/24 22:[address] 11/05/24 19:53 Exam(s): CT CHEST With Contrast IV Amt: 91ML OPTIRAY 320 EXAM: CT Chest With Intravenous Contrast CLINICAL HISTORY: Reason for exam: fall, L chest pain. TECHNIQUE: Axial computed tomography images of the chest with intravenous contrast. CTDI is 38.03 mGy and DLP is 2118.22 mGy-cm. Automated exposure control was utilized for the study. A dose lowering technique was utilized adhering to the principles of ALARA. CONTRAST: Patient received 91ML OPTIRAY 320 of IV contrast COMPARISON: FINDINGS: Lungs: Linear subsegmental atelectasis in the lower lobes. No consolidation, contusion, or mass. Pleural space: Unremarkable. No pneumothorax. No significant effusion. Heart: Coronary artery atherosclerosis. No cardiomegaly or pericardial effusion. Mediastinum: Unremarkable. No mediastinal hematoma. Bones/joints: Osteopenia. Acute nondisplaced left scapular body fracture. No other fractures. No dislocation. Soft tissues: Unremarkable. Vasculature: Mild atherosclerosis of the thoracic aorta without aneurysm, dissection, or traumatic injury. Normal caliber main pulmonary. Lymph nodes: Unremarkable. No enlarged lymph nodes. IMPRESSION: Acute nondisplaced left scapular body fracture. No other acute traumatic findings. Electronically signed by: Edel Eduardo M.D. 11/05/24 22:[address] 11/05/24 19:53 Exam(s): CT FACIAL Without Contrast EXAM: CT Head and Maxillofacial Without Intravenous Contrast CLINICAL HISTORY: Reason for exam: fall, facial contusion. TECHNIQUE: Axial computed tomography images of the head/brain and face without intravenous contrast. CTDI is 38.03 mGy and DLP is 2118.22 mGy-cm. Automated exposure control was utilized for the study. A dose lowering technique was utilized adhering to the principles of ALARA. COMPARISON: No relevant prior studies available. FINDINGS: Brain: Unremarkable. No hemorrhage. No significant white matter disease. No edema. Ventricles: Unremarkable. No ventriculomegaly. Bones/joints: No acute fracture. Soft tissues: Prominent cervical lymph nodes. Sinuses: Chronic maxillary, ethmoid and sphenoid sinusitis. No acute sinusitis. Mastoid air cells: Unremarkable as visualized. No mastoid effusion. Orbits: Unremarkable as visualized. IMPRESSION: No evidence of acute facial bone pathology. Electronically signed by: Aileen Candelario MD 11/05/24 22:41 PM Forearm X-Ray 11/05/24 19:53 Exam(s): XR LEFT FOREARM, 2 views EXAM: XR Left Forearm, 2 Views CLINICAL HISTORY: Reason for exam: fall. TECHNIQUE: Frontal and lateral views of the left forearm. COMPARISON: No relevant prior studies available. FINDINGS: Bones/joints: Osteopenia. No acute fracture or dislocation. Soft tissues: Unremarkable. IMPRESSION: No acute findings in the left forearm. Electronically signed by: Edel Eduardo M.D. 11/05/24 22:16 PM Humerus X-Ray 11/05/24 19:53 Exam(s): XR LEFT HUMERUS, 2+ views EXAM: XR Left Humerus, 2 or More Views CLINICAL HISTORY: Reason for exam: fall. TECHNIQUE: Frontal and lateral views of the left humerus. COMPARISON: No relevant prior studies available. FINDINGS: Bones/joints: No acute fracture. No dislocation. Osteopenia. Soft tissues: Unremarkable. IMPRESSION: No acute osseous findings. Electronically signed by: Edel Eduardo M.D. 11/05/24 22:17 PM Discharge Plan Visit Data Chief Complaint: Syncope Stated Complaint: LT ARM AND HIT FACE, SYNCOPE WHEN FELL ED Provider: Nahum Wagner Discharge Problem: Fall, Syncope and collapse, Closed left scapular fracture, Contusion of face Patient Disposition: Being Evaluated by Hospitalist Forms Stand Alone Forms: [facility] Prescriptions Prescriptions: No Action hydrochlorothiazide 12.5 mg tablet 6.25 mg PO QAM Qty: 45 1RF Evenity 210mg/2.34mL ( 105mg/1.17mLx2) syringe 210 mg subcut MONTHLY Qty: 2.34 5RF cyanocobalamin (vitamin B-12) 1,000 mcg tablet 1,000 mcg PO QAM trazodone 150 mg tablet 150 mg PO HS aspirin [Adult Low Dose Aspirin] 81 mg tablet,delayed release (DR/EC) 81 mg PO UD Rx Instructions: three times a week multivitamin tablet 1 tab PO DAILY cholecalciferol (vitamin D3) 2,000 unit capsule 2,000 units PO QAM albuterol sulfate 90 mcg/actuation HFA aerosol inhaler 2 inh inhalation QID PRN (Reason: shortness of breath or wheezing) Qty: 8.5 2RF Citrucel 500 mg Tablet 500 mg PO DAILY zinc 10 mg Tablet 10 mg PO DAILY Referrals Referrals: Robin Manriquez DO [Primary Care Provider] - Discharge Problem: Fall Qualifiers: Encounter type: initial encounter Qualified Code(s): W19.XXXA - Unspecified fall, initial encounter Closed left scapular fracture Qualifiers: Encounter type: initial encounter Scapula location: body Fracture alignment: n ondisplaced Qualified Code(s): S42.115A - Nondisplaced fracture of body of scapula, left shoulder, initial encounter for closed fracture Contusion of face Qualifiers: Encounter type: initial encounter Qualified Code(s): S00.83XA - Contusion of other part of head, initial encounter
[2024-11-05] MEDS: ACETAMINOPHEN 500 MG TAB PO STA (20:41)
[2024-11-05] MEDS: SODIUM CHLORIDE 0.9% 1,000 ML IV ONE (20:43)
[2024-11-05 21:45] LABS: Appearance Urine Clear (Clear); Bilirubin Urine Negative (Negative); Blood Urine Negative (Negative); Color Urine Yellow; Glucose Urine UA Negative (Negative); Ketones Urine Negative (Negative); Leukocyte Esterase Urine Negative (Negative); Nitrite Urine Negative (Negative); Protein Urine Negative (Negative); Specific Gravity Urine 1.015 (1.000-1.030); Urobilinogen Urine Negative (Negative); pH Urine 7.5 (4.5-7.5)
--- NOTE | 2024-11-05 22:12 | CT Scan Report ---
Exam(s): CT CHEST With Contrast IV Amt: 91ML OPTIRAY 320 EXAM: CT Chest With Intravenous Contrast CLINICAL HISTORY: Reason for exam: fall, L chest pain. TECHNIQUE: Axial computed tomography images of the chest with intravenous contrast. CTDI is 38.03 mGy and DLP is 2118.22 mGy-cm. Automated exposure control was utilized for the study. A dose lowering technique was utilized adhering to the principles of ALARA. CONTRAST: Patient received 91ML OPTIRAY 320 of IV contrast COMPARISON: FINDINGS: Lungs: Linear subsegmental atelectasis in the lower lobes. No consolidation, contusion, or mass. Pleural space: Unremarkable. No pneumothorax. No significant effusion. Heart: Coronary artery atherosclerosis. No cardiomegaly or pericardial effusion. Mediastinum: Unremarkable. No mediastinal hematoma. Bones/joints: Osteopenia. Acute nondisplaced left scapular body fracture. No other fractures. No dislocation. Soft tissues: Unremarkable. Vasculature: Mild atherosclerosis of the thoracic aorta without aneurysm, dissection, or traumatic injury. Normal caliber main pulmonary. Lymph nodes: Unremarkable. No enlarged lymph nodes. IMPRESSION: Acute nondisplaced left scapular body fracture. No other acute traumatic findings. Electronically signed by: Edel Eduardo M.D. 11/05/24 22:12 PM
--- NOTE | 2024-11-05 22:15 | CT Scan Report ---
Exam(s): CT ABDOMEN + PELVIS With Contrast IV Amt: 91ML OPTIPRAY 320 EXAM: CT Abdomen and Pelvis With Intravenous Contrast CLINICAL HISTORY: Reason for exam: fall, L pain. TECHNIQUE: Axial computed tomography images of the abdomen and pelvis with intravenous contrast. CTDI is 38.03 mGy and DLP is 2118.22 mGy-cm. Automated exposure control was utilized for the study. A dose lowering technique was utilized adhering to the principles of ALARA. CONTRAST: Patient received 91ML OPTIPRAY 320 of IV contrast COMPARISON: 08/20/23 FINDINGS: Lung bases: A few pulmonary micronodules at the lung bases; no follow-up indicated per [employer] guidelines. Bibasilar subsegmental atelectasis. ABDOMEN: Liver: Stable subcentimeter hypodensities right liver, statistically cysts. No evidence of liver injury. Gallbladder and bile ducts: Unremarkable. No calcified stones. No ductal dilation. Pancreas: Unremarkable. No ductal dilation. No evidence of pancreatic injury. Spleen: Unremarkable. No evidence of splenic injury. Adrenals: Unremarkable. No evidence of adrenal injury. Kidneys and ureters: Unremarkable. No hydronephrosis. No evidence of renal injury. Stomach and bowel: No evidence of bowel injury. Diverticulosis. No obstruction. No mucosal thickening. PELVIS: Appendix: No evidence of appendicitis. Bladder: Unremarkable. No evidence of bladder injury. Reproductive: Unremarkable as visualized. ABDOMEN and PELVIS: Intraperitoneal space: Small volume of free pelvic fluid, low density. No free air. Bones/joints: Osteopenia. Degenerative change in lumbar spine. No acute fracture or dislocation. Soft tissues: Unremarkable. Vasculature: Atherosclerosis. No evidence of vascular injury. No aneurysm. Lymph nodes: Unremarkable. No enlarged lymph nodes. IMPRESSION: No acute traumatic findings. Electronically signed by: Edel Eduardo M.D. 11/05/24 22:15 PM
--- NOTE | 2024-11-05 22:16 | XRay Report ---
Exam(s): XR LEFT FOREARM, 2 views EXAM: XR Left Forearm, 2 Views CLINICAL HISTORY: Reason for exam: fall. TECHNIQUE: Frontal and lateral views of the left forearm. COMPARISON: No relevant prior studies available. FINDINGS: Bones/joints: Osteopenia. No acute fracture or dislocation. Soft tissues: Unremarkable. IMPRESSION: No acute findings in the left forearm. Electronically signed by: Edel Eduardo M.D. 11/05/24 22:16 PM
--- NOTE | 2024-11-05 22:17 | XRay Report ---
Exam(s): XR LEFT HUMERUS, 2+ views EXAM: XR Left Humerus, 2 or More Views CLINICAL HISTORY: Reason for exam: fall. TECHNIQUE: Frontal and lateral views of the left humerus. COMPARISON: No relevant prior studies available. FINDINGS: Bones/joints: No acute fracture. No dislocation. Osteopenia. Soft tissues: Unremarkable. IMPRESSION: No acute osseous findings. Electronically signed by: Edel Eduardo M.D. 11/05/24 22:17 PM
--- NOTE | 2024-11-05 22:30 | CT Scan Report ---
Exam(s): CT C SPINE EXAM: CT Cervical Spine Without Intravenous Contrast CLINICAL HISTORY: Reason for exam: fall, pain. TECHNIQUE: Axial computed tomography images of the cervical spine without intravenous contrast. CTDI is 38.03 mGy and DLP is 2118.22 mGy-cm. Automated exposure control was utilized for the study. A dose lowering technique was utilized adhering to the principles of ALARA. COMPARISON: No relevant prior studies available. FINDINGS: Vertebrae: Unremarkable. No acute fracture. Discs/spinal canal/neural foramina: No acute findings. No spinal canal stenosis. Soft tissues: Prominent cervical lymph nodes. IMPRESSION: No evidence of acute cervical spine pathology. Electronically signed by: Aileen Candelario MD 11/05/24 22:29 PM
--- NOTE | 2024-11-05 22:39 | CT Scan Report ---
Exam(s): CT HEAD Without Contrast EXAM: CT Head Without Intravenous Contrast CLINICAL HISTORY: Reason for exam: fall, syncope. TECHNIQUE: Axial computed tomography images of the head/brain without intravenous contrast. CTDI is 3803 mGy and DLP is 2118.22 mGy-cm. Automated exposure control was utilized for the study. A dose lowering technique was utilized adhering to the principles of ALARA. COMPARISON: No relevant prior studies available. FINDINGS: Brain: Unremarkable. No hemorrhage. No significant white matter disease. No edema. Ventricles: Unremarkable. No ventriculomegaly. Bones/joints: Unremarkable. No acute fracture. Soft tissues: Unremarkable. Sinuses: Unremarkable as chronic maxillary and ethmoid sinusitis. No acute sinusitis. Mastoid air cells: Unremarkable as visualized. No mastoid effusion. IMPRESSION: No evidence of acute intracranial pathology. Electronically signed by: Aileen Candelario MD 11/05/24 22:38 PM
--- NOTE | 2024-11-05 22:41 | CT Scan Report ---
Exam(s): CT FACIAL Without Contrast EXAM: CT Head and Maxillofacial Without Intravenous Contrast CLINICAL HISTORY: Reason for exam: fall, facial contusion. TECHNIQUE: Axial computed tomography images of the head/brain and face without intravenous contrast. CTDI is 38.03 mGy and DLP is 2118.22 mGy-cm. Automated exposure control was utilized for the study. A dose lowering technique was utilized adhering to the principles of ALARA. COMPARISON: No relevant prior studies available. FINDINGS: Brain: Unremarkable. No hemorrhage. No significant white matter disease. No edema. Ventricles: Unremarkable. No ventriculomegaly. Bones/joints: No acute fracture. Soft tissues: Prominent cervical lymph nodes. Sinuses: Chronic maxillary, ethmoid and sphenoid sinusitis. No acute sinusitis. Mastoid air cells: Unremarkable as visualized. No mastoid effusion. Orbits: Unremarkable as visualized. IMPRESSION: No evidence of acute facial bone pathology. Electronically signed by: Aileen Candelario MD 11/05/24 22:41 PM
--- NOTE | 2024-11-05 22:57 | Emergency Department Note ---
Impression & Plan Fall, Syncope and collapse, Closed left scapular fracture, Contusion of face ED Provider Note Provider: Nahum Wagner MD CHIEF COMPLAINT: HISTORY OF PRESENT ILLNESS: Patient is a PAST MEDICAL HISTORY: As noted above MEDICATIONS: FMH: SOCIAL HISTORY: PHYSICAL EXAM: GENERAL: alert and oriented in no acute distress on stretcher Head: normocephalic and atraumatic EYES: No injection, discharge or icterus. PERRL, EOMI. NECK: Trachea midline. Supple. ENT: Mucous membranes pink and moist. Pharynx without erythema or exudate. LUNGS: Airway patent. No retractions. Breath sounds clear with good air entry bilaterally. HEART: Regular rate and rhythm. No chest wall tenderness ABDOMEN: Soft and non-tender, without guarding or rebound. No hepatosplenomegaly or masses BACK: No midline tenderness, no SI joint tenderness. No bilateral flank tenderness. SKIN: Acyanotic, warm, dry, without rashes EXTREMITIES: Without swelling, tenderness or deformity NEUROLOGICAL: No focal deficits. No aphasia. No facial droop or slurred speech. Normal strength and tone in the extremities. Sensation to gross touch normal. Ambulatory. EKG: CONTINUOUS CARDIAC MONITORING: was ordered and showed a heart rate of bpm in PDMP was checked without noted issue. GCS 15. HOSPITAL COURSE: Patient was first seen and H&P performed. Patient reassessed and updated. Patient was Past Med/Surg History Problem List (Updated 11/05/24 @ 22:29 by Nahum Wagner M.D.) Contusion of face (Acute) Closed left scapular fracture (Acute) Syncope and collapse (Acute) Fall (Acute) Insomnia Sigmoid diverticulitis Diverticulitis (Acute) Acute UTI (Acute) Urinary frequency Dyspnea Raynauds phenomenon Abnormal PFT Nocturia Discharge planning issues DVT prophylaxis Osteoporosis (Chronic) Hypercalciuria (Chronic) Dyspnea Fibroid, uterine Postmenopausal bleeding Abnormal ultrasound of endometrium Encounter for pre-operative examination Endometrial stromal neoplasm Acute hyponatremia (Acute) Cystitis (Acute) Medical History History of uterine cancer Chronic obstructive pulmonary disease "MILD" Raynaud disease Back problem HERNIATED DISC LUMBAR SPINE Age related osteoporosis Vitamin D deficiency Mild asthma with allergic rhinitis without complication Surgical History History of colonoscopy History of D&C History of tooth extraction Hx of total hysterectomy with removal of both tubes and ovaries uterine cancer, surgical intervention only Family History Mother Breast cancer Brother Family history of diabetes mellitus Sister Family history of colon cancer Other No family history of adverse response to anesthesia Denies family history of Ovarian cancer Colorectal cancer Uterine cancer Social History Smoking Status: Former smoker Second Hand Exposure: No; Do You Dip or Chew Tobacco: No; Hx Alcohol Use: Yes Alcohol type: wine Hx Substance Use: No Preferred Language: Spanish Communication Ability: Effective Joint Sealer Required: No Beliefs That Will Affect Care: None marital status: Current Living Situation: Spouse current occupational status: retired Feels Safe at Home: Yes Seatbelt Use: always Assistive Devices: Glasses Allergies Allergies Allergy/AdvReac Type Severity Reaction Status Date / Time alendronate sodium Allergy Intermediate HEART Verified 10/23/24 13:57 BEATS REALLY FAST MUSCLE RELAXER Allergy Intermediate ? Verified 10/23/24 13:57 MEDICATION NAME, 1986 - FACE SWOLLEN , HIVES Home Meds Home Medications Medication Instructions Recorded Confirmed aspirin 81 mg tablet,delayed 81 mg PO UD 08/22/19 10/23/24 release (Adult Low Dose Aspirin) cholecalciferol (vitamin D3) 50 2,000 units PO QAM 08/22/19 10/23/24 mcg (2,000 unit) capsule multivitamin 1 tab PO DAILY 08/22/19 10/23/24 cyanocobalamin (vitamin B-12) 1,000 mcg PO QAM 04/23/20 10/23/24 1,000 mcg tablet methylcellulose (laxative) 500 mg 500 mg PO DAILY 02/26/21 10/23/24 tablet (Citrucel) trazodone 150 mg tablet 150 mg PO HS 01/19/24 10/23/24 zinc 10 mg tablet 10 mg PO DAILY 05/04/24 10/23/24 Previous Rx's Medication Instructions Recorded albuterol sulfate 90 mcg/actuation 2 inh inhalation QID PRN shortness 03/31/23 aerosol inhaler of breath or wheezing #8.5 grams hydrochlorothiazide 12.5 mg tablet 6.25 mg (1/2 x 12.5 mg) PO QAM #45 06/05/24 tabs romosozumab-[id number] 210 mg/2.34 210 mg (2.34 mL) subcut MONTHLY 10/24/24 mL(105 mg/1.17 mL x2)subcutaneous #2.34 mL syringe (Evenity) Results & Data (ED) Vital Signs Vital Signs - 24 hr 11/05/24 17:23 11/05/24 19:17 11/05/24 19:17 Temperature 37.1 C Temperature Source Temporal Artery Scan Pulse Rate 73 Pulse Rate [Apical] 74 Pulse Rhythm Pulse Rhythm [Apical] Regular Pulse Strength [Apical] Respiratory Rate 20 20 Respiratory Effort / Characteristics Non-Labored Spontaneous Respiratory Depth Normal Respiratory Pattern Regular Blood Pressure 119/82 Blood Pressure [Right Arm] 145/90 H Blood Pressure Mean 94 Blood Pressure Mean [Right Arm] 108 Blood Pressure Position [Right Arm] Pulse Oximetry 98 98 98 Oxygen Delivery Method Room Air Room Air Sepsis Recent Fever Within 48 Hours No Sepsis New/Unexplained Change in Mental Status N/A Sepsis Action Taken by Nursing No Action Required 11/05/24 19:17 11/05/24 21:02 11/05/24 21:25 Temperature Temperature Source Pulse Rate 74 81 Pulse Rate [Apical] 84 Pulse Rhythm Regular Pulse Rhythm [Apical] Regular Pulse Strength [Apical] Normal Respiratory Rate 20 20 Respiratory Effort / Characteristics Non-Labored Spontaneous Respiratory Depth Normal Respiratory Pattern Regular Blood Pressure Blood Pressure [Right Arm] 165/100 H Blood Pressure Mean Blood Pressure Mean [Right Arm] 121 Blood Pressure Position [Right Arm] Sitting Pulse Oximetry 98 94 Oxygen Delivery Method Room Air Room Air Sepsis Recent Fever Within 48 Hours Sepsis New/Unexplained Change in Mental Status Sepsis Action Taken by Nursing Laboratory Data 11/05/24 17:40 11/05/24 17:40 Lab Results 11/05/24 11/05/24 Range/Units 17:40 21:30 WBC 8.38 (4.8-10.8) K/ul RBC 4.12 L (4.20-5.40) M/uL Hgb 11.9 L (12.0-16.0) g/dl Hct 34.8 L (37.0-47.0) % MCV 84.5 (80.0-100.0) fL MCH 28.9 (25.0-34.0) pg MCHC 34.2 (32.0-36.0) g/dL RDW Std Deviation 38.0 (36.4-46.3) fL RDW Coeff of [place] 12.5 (11.5-14.5) % Plt Count 238 (130-400) K/uL MPV 8.4 L (9.4-12.4) fL Immature Gran % (Auto) 0.2 % Neut % (Auto) 77.7 % Lymph % (Auto) 14.8 % [place] % (Auto) 5.5 % Eos % (Auto) 1.3 % Baso % (Auto) 0.5 % Neut # (Auto) 6.51 H (1.40-6.50) K/uL Lymph # (Auto) 1.24 (1.20-3.40) K/uL [place] # (Auto) 0.46 (0.11-0.59) K/uL Eos # (Auto) 0.11 (0.00-0.50) K/uL Baso # (Auto) 0.04 (0.00-0.20) K/uL Immature Gran # (Auto) 0.02 (0.01-0.20) K/uL PT 10.6 (9.0-12.0) Seconds INR 1.0 (0.9-1.1) APTT 25 (21-31) Seconds PTT Ratio 0.9 Sodium 134 L (136-145) mmol/L Potassium 3.8 (3.5-5.1) mmol/L Chloride 103 (98-107) mmol/L Carbon Dioxide 26 (21-32) mmol/L Anion Gap 5 (3-11) BUN 11 (6-23) mg/dl Creatinine 0.67 (0.6-1.2) mg/dl Est Cr Clr Drug Dosing 59.5 ml/min eGFR 92.81 BUN/Creatinine Ratio 16.4 (10-20) Glucose 99 (70-99(Fasting)) mg/dl Calcium 9.1 (8.6-10.3) mg/dl Total Bilirubin 0.5 (0.2-1.0) mg/dl AST 20 (13-39) U/L ALT 12 (7-52) U/L Alkaline Phosphatase 45 (34-104) U/L Troponin I High Sens 3.4 (0-14) pg/ml Total Protein 7.3 (6.0-8.3) gm/dl Albumin 4.2 (3.4-5.0) gm/dl Globulin 3.1 (2.5-4.0) gm/dl Albumin/Globulin Ratio 1.4 (0.9-2) Urine Color Yellow Urine Appearance Clear (Clear) Urine pH 7.5 (4.5-7.5) Ur Specific [place] 1.015 (1.000-1.030) Urine Protein Negative (Negative) Urine Glucose (UA) Negative (Negative) Urine Ketones Negative (Negative) Urine Blood Negative (Negative) Urine Nitrite Negative (Negative) Urine Bilirubin Negative (Negative) Urine Urobilinogen Negative (Negative) Ur Leukocyte Esterase Negative (Negative) Administered Medications Discontinued Medications Acetaminophen (Acetaminophen 500 Mg Tab) 1,000 mg PO NOW STA Stop: 11/05/24 19:56 Last Admin: 11/05/24 20:41 Dose: 1,000 mg Documented By: LILI Sodium Chloride (Nss) 1,000 mls @ 999 mls/hr IV .Q1H1M ONE Stop: 11/05/24 21:26 Last Infusion: 11/05/24 22:27 Dose: Infused Documented By: Admin: 11/05/24 20:43 Dose: 999 mls/hr Documented By: LILI Ioversol (Optiray 320 100ml) 91 ml IV ONCE ONE Stop: 11/05/24 20:08 Last Admin: 11/05/24 20:07 Dose: 91 ml Documented By: EDK Imaging Data Radiologist's Impression: Chest X-Ray 11/05/24 17:32 EXAM: Radiograph of the Chest 1 View INDICATION: Chest pain. TECHNIQUE: Frontal view of the chest. COMPARISON: 10/18/2024 FINDINGS: Lungs and pleural spaces: No consolidation or pulmonary edema. No pleural effusion or pneumothorax. Heart: Shape and configuration within normal limits allowing for technique. Mediastinum: Normal contour. Bones/joints: No fracture, erosion or dislocation. Soft tissues: No abnormality noted. No radiopaque foreign body noted. Upper abdomen: No abnormality noted. IMPRESSION: No abnormality noted. ACT 112: Negative or not required by law. Electronically signed by Jonelle Galvez 11-05-2024 6:[address] 11/05/24 19:42 Exam(s): CT C SPINE EXAM: CT Cervical Spine Without Intravenous Contrast CLINICAL HISTORY: Reason for exam: fall, pain. TECHNIQUE: Axial computed tomography images of the cervical spine without intravenous contrast. CTDI is 38.03 mGy and DLP is 2118.22 mGy-cm. Automated exposure control was utilized for the study. A dose lowering technique was utilized adhering to the principles of ALARA. COMPARISON: No relevant prior studies available. FINDINGS: Vertebrae: Unremarkable. No acute fracture. Discs/spinal canal/neural foramina: No acute findings. No spinal canal stenosis. Soft tissues: Prominent cervical lymph nodes. IMPRESSION: No evidence of acute cervical spine pathology. Electronically signed by: Aileen Candelario MD 11/05/24 22:[address] 11/05/24 19:42 Exam(s): CT HEAD Without Contrast EXAM: CT Head Without Intravenous Contrast CLINICAL HISTORY: Reason for exam: fall, syncope. TECHNIQUE: Axial computed tomography images of the head/brain without intravenous contrast. CTDI is 3803 mGy and DLP is 2118.22 mGy-cm. Automated exposure control was utilized for the study. A dose lowering technique was utilized adhering to the principles of ALARA. COMPARISON: No relevant prior studies available. FINDINGS: Brain: Unremarkable. No hemorrhage. No significant white matter disease. No edema. Ventricles: Unremarkable. No ventriculomegaly. Bones/joints: Unremarkable. No acute fracture. Soft tissues: Unremarkable. Sinuses: Unremarkable as chronic maxillary and ethmoid sinusitis. No acute sinusitis. Mastoid air cells: Unremarkable as visualized. No mastoid effusion. IMPRESSION: No evidence of acute intracranial pathology. Electronically signed by: Aileen Candelario MD 11/05/24 22:38 PM Abdomen/Pelvis CT 11/05/24 19:53 Exam(s): CT ABDOMEN + PELVIS With Contrast IV Amt: 91ML OPTIPRAY 320 EXAM: CT Abdomen and Pelvis With Intravenous Contrast CLINICAL HISTORY: Reason for exam: fall, L pain. TECHNIQUE: Axial computed tomography images of the abdomen and pelvis with intravenous contrast. CTDI is 38.03 mGy and DLP is 2118.22 mGy-cm. Automated exposure control was utilized for the study. A dose lowering technique was utilized adhering to the principles of ALARA. CONTRAST: Patient received 91ML OPTIPRAY 320 of IV contrast COMPARISON: 08/20/23 FINDINGS: Lung bases: A few pulmonary micronodules at the lung bases; no follow-up indicated per [employer] guidelines. Bibasilar subsegmental atelectasis. ABDOMEN: Liver: Stable subcentimeter hypodensities right liver, statistically cysts. No evidence of liver injury. Gallbladder and bile ducts: Unremarkable. No calcified stones. No ductal dilation. Pancreas: Unremarkable. No ductal dilation. No evidence of pancreatic injury. Spleen: Unremarkable. No evidence of splenic injury. Adrenals: Unremarkable. No evidence of adrenal injury. Kidneys and ureters: Unremarkable. No hydronephrosis. No evidence of renal injury. Stomach and bowel: No evidence of bowel injury. Diverticulosis. No obstruction. No mucosal thickening. PELVIS: Appendix: No evidence of appendicitis. Bladder: Unremarkable. No evidence of bladder injury. Reproductive: Unremarkable as visualized. ABDOMEN and PELVIS: Intraperitoneal space: Small volume of free pelvic fluid, low density. No free air. Bones/joints: Osteopenia. Degenerative change in lumbar spine. No acute fracture or dislocation. Soft tissues: Unremarkable. Vasculature: Atherosclerosis. No evidence of vascular injury. No aneurysm. Lymph nodes: Unremarkable. No enlarged lymph nodes. IMPRESSION: No acute traumatic findings. Electronically signed by: Edel Eduardo M.D. 11/05/24 22:[address] 11/05/24 19:53 Exam(s): CT CHEST With Contrast IV Amt: 91ML OPTIRAY 320 EXAM: CT Chest With Intravenous Contrast CLINICAL HISTORY: Reason for exam: fall, L chest pain. TECHNIQUE: Axial computed tomography images of the chest with intravenous contrast. CTDI is 38.03 mGy and DLP is 2118.22 mGy-cm. Automated exposure control was utilized for the study. A dose lowering technique was utilized adhering to the principles of ALARA. CONTRAST: Patient received 91ML OPTIRAY 320 of IV contrast COMPARISON: FINDINGS: Lungs: Linear subsegmental atelectasis in the lower lobes. No consolidation, contusion, or mass. Pleural space: Unremarkable. No pneumothorax. No significant effusion. Heart: Coronary artery atherosclerosis. No cardiomegaly or pericardial effusion. Mediastinum: Unremarkable. No mediastinal hematoma. Bones/joints: Osteopenia. Acute nondisplaced left scapular body fracture. No other fractures. No dislocation. Soft tissues: Unremarkable. Vasculature: Mild atherosclerosis of the thoracic aorta without aneurysm, dissection, or traumatic injury. Normal caliber main pulmonary. Lymph nodes: Unremarkable. No enlarged lymph nodes. IMPRESSION: Acute nondisplaced left scapular body fracture. No other acute traumatic findings. Electronically signed by: Edel Eduardo M.D. 11/05/24 22:[address] 11/05/24 19:53 Exam(s): CT FACIAL Without Contrast EXAM: CT Head and Maxillofacial Without Intravenous Contrast CLINICAL HISTORY: Reason for exam: fall, facial contusion. TECHNIQUE: Axial computed tomography images of the head/brain and face without intravenous contrast. CTDI is 38.03 mGy and DLP is 2118.22 mGy-cm. Automated exposure control was utilized for the study. A dose lowering technique was utilized adhering to the principles of ALARA. COMPARISON: No relevant prior studies available. FINDINGS: Brain: Unremarkable. No hemorrhage. No significant white matter disease. No edema. Ventricles: Unremarkable. No ventriculomegaly. Bones/joints: No acute fracture. Soft tissues: Prominent cervical lymph nodes. Sinuses: Chronic maxillary, ethmoid and sphenoid sinusitis. No acute sinusitis. Mastoid air cells: Unremarkable as visualized. No mastoid effusion. Orbits: Unremarkable as visualized. IMPRESSION: No evidence of acute facial bone pathology. Electronically signed by: Aileen Candelario MD 11/05/24 22:41 PM Forearm X-Ray 11/05/24 19:53 Exam(s): XR LEFT FOREARM, 2 views EXAM: XR Left Forearm, 2 Views CLINICAL HISTORY: Reason for exam: fall. TECHNIQUE: Frontal and lateral views of the left forearm. COMPARISON: No relevant prior studies available. FINDINGS: Bones/joints: Osteopenia. No acute fracture or dislocation. Soft tissues: Unremarkable. IMPRESSION: No acute findings in the left forearm. Electronically signed by: Edel Eduardo M.D. 11/05/24 22:16 PM Humerus X-Ray 11/05/24 19:53 Exam(s): XR LEFT HUMERUS, 2+ views EXAM: XR Left Humerus, 2 or More Views CLINICAL HISTORY: Reason for exam: fall. TECHNIQUE: Frontal and lateral views of the left humerus. COMPARISON: No relevant prior studies available. FINDINGS: Bones/joints: No acute fracture. No dislocation. Osteopenia. Soft tissues: Unremarkable. IMPRESSION: No acute osseous findings. Electronically signed by: Edel Eduardo M.D. 11/05/24 22:17 PM Discharge Plan Visit Data Chief Complaint: Syncope Stated Complaint: LT ARM AND HIT FACE, SYNCOPE WHEN FELL ED Provider: Nahum Wagner Discharge Problem: Fall, Syncope and collapse, Closed left scapular fracture, Contusion of face Patient Disposition: Being Evaluated by Hospitalist Forms Stand Alone Forms: My [facility] Prescriptions Prescriptions: No Action hydrochlorothiazide 12.5 mg tablet 6.25 mg PO QAM Qty: 45 1RF Evenity 210mg/2.34mL ( 105mg/1.17mLx2) syringe 210 mg subcut MONTHLY Qty: 2.34 5RF cyanocobalamin (vitamin B-12) 1,000 mcg tablet 1,000 mcg PO QAM trazodone 150 mg tablet 150 mg PO HS aspirin [Adult Low Dose Aspirin] 81 mg tablet,delayed release (DR/EC) 81 mg PO UD Rx Instructions: three times a week multivitamin tablet 1 tab PO DAILY cholecalciferol (vitamin D3) 2,000 unit capsule 2,000 units PO QAM albuterol sulfate 90 mcg/actuation HFA aerosol inhaler 2 inh inhalation QID PRN (Reason: shortness of breath or wheezing) Qty: 8.5 2RF Citrucel 500 mg Tablet 500 mg PO DAILY zinc 10 mg Tablet 10 mg PO DAILY Referrals Referrals: Robin Manriquez DO [Primary Care Provider] - Discharge Problem: Fall Qualifiers: Encounter type: initial encounter Qualified Code(s): W19.XXXA - Unspecified fall, initial encounter Closed left scapular fracture Qualifiers: Encounter type: initial encounter Scapula location: body Fracture alignment: n ondisplaced Qualified Code(s): S42.115A - Nondisplaced fracture of body of scapula, left shoulder, initial encounter for closed fracture Contusion of face Qualifiers: Encounter type: initial encounter Qualified Code(s): S00.83XA - Contusion of other part of head, initial encounter
[2024-11-05] MEDS: KETOROLAC TROMETHAMINE 15 MG/ML VIAL IV ONE (23:05)
--- NOTE | 2024-11-06 00:30 | History & Physical Report ---
Date of Service November 06, 2024 Assessment & Plan (1) Closed left scapular fracture: (2) Syncope and collapse: (3) Raynauds phenomenon: (4) Contusion of face: (5) Fall: Plan The patient is a 74-year-old female with past medical history including sigmoid diverticulitis, urinary tract infection, Raynaud's phenomenon, endometrial stromal neoplasm, hyponatremia and postmenopausal bleeding. She presents to the emergency department after having 3 successive syncopal episodes, in each case, she was either sitting and attempting to stand and walk, or with standing and trying to maintain her posture. With the third episode she complained of left shoulder and arm pain. Workup in the emergency department included a x-ray suggesting a left scapular body fracture. #Syncope and collapse- Patient with 3 successive episodes, each 1 was associated with trying to rise from sitting to standing, or maintaining once position standing The patient will be admitted to telemetry for serial cardiac enzymes, serial EKG's, cardiac rhythm monitoring and a 2-D echocardiogram with Dopplers. CT scan head negative CT scan abdomen and pelvis negative CT scan of chest showed acute nondisplaced left scapular body fracture CT scan of face was negative CT scan of cervical spine is negative Humerus x-ray negative Left femur x-ray negative Chest x-ray negative Ordered MRI of brain without contrast Order EEG Follow stroke without thrombolytic order set, but not likely a stroke Add Lyme, ESR and BUNNY labs Follow serial CBC with differential, renal function panel, magnesium, fasting lipid panel, hemoglobin A1c UA is negative Hold HCTZ and trazodone, as potential triggers to orthostasis #Acute nondisplaced left scapular body fracture- Lidoderm patch Acetaminophen 650 mg by mouth every 6 hours as needed for mild pain or fever Consult orthopedic surgery #CODE STATUS: Full code History of Present Illness Chief Complaint: The patient was in her usual state of health until she woke around 6:40 AM by the alarm clock this morning, was getting out of bed to go to the bathroom. She stood up and immediately passed out and fell to the ground. heard her fall, went to see her, and she was easily able to be picked up and assisted to bed. When she tried to get up the second time began to the syncopal episode again. She rested in bed the rest of the morning, and then when she went to the bathroom later on again, she had a third episode of syncope. With the third episode, she complained of pain in her left upper arm and left shoulder blade area. She was then brought to the emergency department for assessment Primary Care Provider: Robin Manriquez DO The patient is a 74-year-old female with past medical history including sigmoid diverticulitis, urinary tract infection, Raynaud's phenomenon, endometrial stromal neoplasm, hyponatremia and postmenopausal bleeding. She presents to the emergency department after having 3 successive syncopal episodes, in each case, she was either sitting and attempting to stand and walk, or with standing and trying to maintain her posture. With the third episode she complained of left shoulder and arm pain. Workup in the emergency department included a x-ray suggesting a left scapular body fracture. Allergies Allergy/AdvReac Type Severity Reaction Status Date / Time alendronate sodium Allergy Intermediate HEART Verified 10/23/24 13:57 BEATS REALLY FAST MUSCLE RELAXER Allergy Intermediate ? Verified 10/23/24 13:57 MEDICATION NAME, 1986 - FACE SWOLLEN , HIVES Home Medications Medication Instructions Recorded Confirmed Type aspirin 81 mg tablet,delayed 81 mg PO UD 08/22/19 10/23/24 History release (Adult Low Dose Aspirin) cholecalciferol (vitamin D3) 50 2,000 units PO QAM 08/22/19 10/23/24 History mcg (2,000 unit) capsule multivitamin 1 tab PO DAILY 08/22/19 10/23/24 History cyanocobalamin (vitamin B-12) 1,000 mcg PO QAM 04/23/20 10/23/24 History 1,000 mcg tablet methylcellulose (laxative) 500 mg 500 mg PO DAILY 02/26/21 10/23/24 History tablet (Citrucel) albuterol sulfate 90 mcg/actuation 2 inh inhalation QID PRN shortness 03/31/23 10/23/24 Rx aerosol inhaler of breath or wheezing #8.5 grams trazodone 150 mg tablet 150 mg PO HS 01/19/24 10/23/24 History zinc 10 mg tablet 10 mg PO DAILY 05/04/24 10/23/24 History hydrochlorothiazide 12.5 mg tablet 6.25 mg (1/2 x 12.5 mg) PO QAM #45 06/05/24 10/23/24 Rx tabs romosozumab-[id number] 210 mg/2.34 210 mg (2.34 mL) subcut MONTHLY 10/24/24 Rx mL(105 mg/1.17 mL x2)subcutaneous #2.34 mL syringe (Evenity) Past Med/Surg History Problem List (Updated 11/05/24 @ 22:29 by Nahum Wagner M.D.) Contusion of face (Acute) Closed left scapular fracture (Acute) Syncope and collapse (Acute) Fall (Acute) Insomnia Sigmoid diverticulitis Diverticulitis (Acute) Acute UTI (Acute) Urinary frequency Dyspnea Raynauds phenomenon Abnormal PFT Nocturia Discharge planning issues DVT prophylaxis Osteoporosis (Chronic) Hypercalciuria (Chronic) Dyspnea Fibroid, uterine Postmenopausal bleeding Abnormal ultrasound of endometrium Encounter for pre-operative examination Endometrial stromal neoplasm Acute hyponatremia (Acute) Cystitis (Acute) Medical History History of uterine cancer Chronic obstructive pulmonary disease "MILD" Raynaud disease Back problem HERNIATED DISC LUMBAR SPINE Age related osteoporosis Vitamin D deficiency Mild asthma with allergic rhinitis without complication Surgical History History of colonoscopy History of D&C History of tooth extraction Hx of total hysterectomy with removal of both tubes and ovaries uterine cancer, surgical intervention only Family History Mother Breast cancer Brother Family history of diabetes mellitus Sister Family history of colon cancer Other No family history of adverse response to anesthesia Denies family history of Ovarian cancer Colorectal cancer Uterine cancer Social History Smoking Status: Never smoker Second Hand Exposure: No; Do You Dip or Chew Tobacco: No; Hx Alcohol Use: Yes Alcohol type: wine Hx Substance Use: No Preferred Language: Portuguese Communication Ability: Effective Batteryman Required: No Beliefs That Will Affect Care: None marital status: Current Living Situation: Spouse current occupational status: retired Feels Safe at Home: Yes Safety Concerns: Feels Safe At This Time Seatbelt Use: always Assistive Devices: Glasses Review of Systems Review of Systems: The patient denies chest pain, palpitations, shortness of breath, dyspnea on exertion, cough, lower extremity swelling, sore throat, fevers, chills, sweats, nausea, vomiting, diarrhea , constipation, abdominal pain, pelvic pain, blood in urine or stool, dysuria, urinary frequency or urgency, lightheadedness, dizziness, headache, rash, abnormal bruising or bleeding, focal or generalized weakness, numbness or tingling in arms or legs, generalized arthralgias or myalgias, back or neck pain, or night sweats. The review of systems is otherwise negative other than for that already noted above, and at least 10 systems have been reviewed. Physical Exam Physical Exam: The patient is awake, alert and oriented 3, well developed and well nourished, left facial contusion, lying in bed and in no acute distress. HEENT--PERRL, EOMI, mucous membranes and oropharynx dry. Neck--supple. No JVD. No bruits. Thyroid normal, trachea midline, no adenopathy. Heart--normal S1 and S2. No murmurs, rubs or gallops. Lungs--clear bilaterally, no respiratory distress, no accessory muscle use. Abdomen--normal bowel sounds and soft. Nontender. Nondistended, no hernias or masses, no organomegaly. Extremities--no cyanosis or clubbing. No edema. There are good distal pulses b/l. Dermatologic--normal skin turgor, normal color, no abnormal lymph nodes, no rash. Neurologic--cranial nerves II through XII grossly intact. Rheumatologic--decreased range of motion of the left arm and shoulder. Psychiatric--normal affect. Results & Data Results & Data Vital Signs (Past 12 Hours) Vital Signs Temp Pulse Pulse Resp BP BP Pulse Ox 11/05/24 23:00 70 17 108/87 96 11/05/24 21:25 84 20 165/100 H 94 11/05/24 21:02 81 11/05/24 19:17 74 20 98 11/05/24 19:17 74 20 145/90 H 98 11/05/24 19:17 98 11/05/24 17:23 37.1 C 73 20 119/82 98 O2 Del Method 11/05/24 23:00 Room Air 11/05/24 21:25 Room Air 11/05/24 21:02 11/05/24 19:17 Room Air 11/05/24 19:17 11/05/24 19:17 Room Air 11/05/24 17:23 Room Air Laboratory Results Laboratory Results WBC 8.38 K/ul (4.8-10.8) 11/05/24 17:40 RBC 4.12 M/uL (4.20-5.40) L 11/05/24 17:40 Hgb 11.9 g/dl (12.0-16.0) L 11/05/24 17:40 Hct 34.8 % (37.0-47.0) L 11/05/24 17:40 MCV 84.5 fL (80.0-100.0) 11/05/24 17:40 MCH 28.9 pg (25.0-34.0) 11/05/24 17:40 MCHC 34.2 g/dL (32.0-36.0) 11/05/24 17:40 RDW Std Deviation 38.0 fL (36.4-46.3) 11/05/24 17:40 RDW Coeff of [place] 12.5 % (11.5-14.5) 11/05/24 17:40 Plt Count 238 K/uL (130-400) 11/05/24 17:40 MPV 8.4 fL (9.4-12.4) L 11/05/24 17:40 Immature Gran % (Auto) 0.2 % 11/05/24 17:40 Neut % (Auto) 77.7 % 11/05/24 17:40 Lymph % (Auto) 14.8 % 11/05/24 17:40 [place] % (Auto) 5.5 % 11/05/24 17:40 Eos % (Auto) 1.3 % 11/05/24 17:40 Baso % (Auto) 0.5 % 11/05/24 17:40 Neut # (Auto) 6.51 K/uL (1.40-6.50) H 11/05/24 17:40 Lymph # (Auto) 1.24 K/uL (1.20-3.40) 11/05/24 17:40 [place] # (Auto) 0.46 K/uL (0.11-0.59) 11/05/24 17:40 Eos # (Auto) 0.11 K/uL (0.00-0.50) 11/05/24 17:40 Baso # (Auto) 0.04 K/uL (0.00-0.20) 11/05/24 17:40 Immature Gran # (Auto) 0.02 K/uL (0.01-0.20) 11/05/24 17:40 PT 10.6 Seconds (9.0-12.0) 11/05/24 17:40 INR 1.0 (0.9-1.1) 11/05/24 17:40 APTT 25 Seconds (21-31) 11/05/24 17:40 PTT Ratio 0.9 11/05/24 17:40 Sodium 134 mmol/L (136-145) L 11/05/24 17:40 Potassium 3.8 mmol/L (3.5-5.1) 11/05/24 17:40 Chloride 103 mmol/L (98-107) 11/05/24 17:40 Carbon Dioxide 26 mmol/L (21-32) 11/05/24 17:40 Anion Gap 5 (3-11) 11/05/24 17:40 BUN 11 mg/dl (6-23) 11/05/24 17:40 Creatinine 0.67 mg/dl (0.6-1.2) 11/05/24 17:40 Est Cr Clr Drug Dosing 59.5 ml/min 11/05/24 17:40 eGFR 92.81 11/05/24 17:40 BUN/Creatinine Ratio 16.4 (10-20) 11/05/24 17:40 Glucose 99 mg/dl (70-99(Fasting)) 11/05/24 17:40 Calcium 9.1 mg/dl (8.6-10.3) 11/05/24 17:40 Total Bilirubin 0.5 mg/dl (0.2-1.0) 11/05/24 17:40 AST 20 U/L (13-39) 11/05/24 17:40 ALT 12 U/L (7-52) 11/05/24 17:40 Alkaline Phosphatase 45 U/L (34-104) 11/05/24 17:40 Troponin I High Sens 3.4 pg/ml (0-14) 11/05/24 17:40 Total Protein 7.3 gm/dl (6.0-8.3) 11/05/24 17:40 Albumin 4.2 gm/dl (3.4-5.0) 11/05/24 17:40 Globulin 3.1 gm/dl (2.5-4.0) 11/05/24 17:40 Albumin/Globulin Ratio 1.4 (0.9-2) 11/05/24 17:40 Urine Color Yellow 11/05/24 21:30 Urine Appearance Clear (Clear) 11/05/24 21:30 Urine pH 7.5 (4.5-7.5) 11/05/24 21:30 Ur Specific [place] 1.015 (1.000-1.030) 11/05/24 21:30 Urine Protein Negative (Negative) 11/05/24 21:30 Urine Glucose (UA) Negative (Negative) 11/05/24 21:30 Urine Ketones Negative (Negative) 11/05/24 21: Urine Blood Negative (Negative) 11/05/24 21:30 Urine Nitrite Negative (Negative) 11/05/24 21:30 Urine Bilirubin Negative (Negative) 11/05/24 21:30 Urine Urobilinogen Negative (Negative) 11/05/24 21:30 Ur Leukocyte Esterase Negative (Negative) 11/05/24 21:30 Impressions Chest X-Ray 11/05/24 17:32 EXAM: Radiograph of the Chest 1 View INDICATION: Chest pain. TECHNIQUE: Frontal view of the chest. COMPARISON: 10/18/2024 FINDINGS: Lungs and pleural spaces: No consolidation or pulmonary edema. No pleural effusion or pneumothorax. Heart: Shape and configuration within normal limits allowing for technique. Mediastinum: Normal contour. Bones/joints: No fracture, erosion or dislocation. Soft tissues: No abnormality noted. No radiopaque foreign body noted. Upper abdomen: No abnormality noted. IMPRESSION: No abnormality noted. ACT 112: Negative or not required by law. Electronically signed by Jonelle Galvez 11-05-2024 6:[address] 11/05/24 19:42 Exam(s): CT C SPINE EXAM: CT Cervical Spine Without Intravenous Contrast CLINICAL HISTORY: Reason for exam: fall, pain. TECHNIQUE: Axial computed tomography images of the cervical spine without intravenous contrast. CTDI is 38.03 mGy and DLP is 2118.22 mGy-cm. Automated exposure control was utilized for the study. A dose lowering technique was utilized adhering to the principles of ALARA. COMPARISON: No relevant prior studies available. FINDINGS: Vertebrae: Unremarkable. No acute fracture. Discs/spinal canal/neural foramina: No acute findings. No spinal canal stenosis. Soft tissues: Prominent cervical lymph nodes. IMPRESSION: No evidence of acute cervical spine pathology. Electronically signed by: Aileen Candelario MD 11/05/24 22:[address] 11/05/24 19:42 Exam(s): CT HEAD Without Contrast EXAM: CT Head Without Intravenous Contrast CLINICAL HISTORY: Reason for exam: fall, syncope. TECHNIQUE: Axial computed tomography images of the head/brain without intravenous contrast. CTDI is 3803 mGy and DLP is 2118.22 mGy-cm. Automated exposure control was utilized for the study. A dose lowering technique was utilized adhering to the principles of ALARA. COMPARISON: No relevant prior studies available. FINDINGS: Brain: Unremarkable. No hemorrhage. No significant white matter disease. No edema. Ventricles: Unremarkable. No ventriculomegaly. Bones/joints: Unremarkable. No acute fracture. Soft tissues: Unremarkable. Sinuses: Unremarkable as chronic maxillary and ethmoid sinusitis. No acute sinusitis. Mastoid air cells: Unremarkable as visualized. No mastoid effusion. IMPRESSION: No evidence of acute intracranial pathology. Electronically signed by: Aileen Candelario MD 11/05/24 22:38 PM Abdomen/Pelvis CT 11/05/24 19:53 Exam(s): CT ABDOMEN + PELVIS With Contrast IV Amt: 91ML OPTIPRAY 320 EXAM: CT Abdomen and Pelvis With Intravenous Contrast CLINICAL HISTORY: Reason for exam: fall, L pain. TECHNIQUE: Axial computed tomography images of the abdomen and pelvis with intravenous contrast. CTDI is 38.03 mGy and DLP is 2118.22 mGy-cm. Automated exposure control was utilized for the study. A dose lowering technique was utilized adhering to the principles of ALARA. CONTRAST: Patient received 91ML OPTIPRAY 320 of IV contrast COMPARISON: 08/20/23 FINDINGS: Lung bases: A few pulmonary micronodules at the lung bases; no follow-up indicated per [employer] guidelines. Bibasilar subsegmental atelectasis. ABDOMEN: Liver: Stable subcentimeter hypodensities right liver, statistically cysts. No evidence of liver injury. Gallbladder and bile ducts: Unremarkable. No calcified stones. No ductal dilation. Pancreas: Unremarkable. No ductal dilation. No evidence of pancreatic injury. Spleen: Unremarkable. No evidence of splenic injury. Adrenals: Unremarkable. No evidence of adrenal injury. Kidneys and ureters: Unremarkable. No hydronephrosis. No evidence of renal injury. Stomach and bowel: No evidence of bowel injury. Diverticulosis. No obstruction. No mucosal thickening. PELVIS: Appendix: No evidence of appendicitis. Bladder: Unremarkable. No evidence of bladder injury. Reproductive: Unremarkable as visualized. ABDOMEN and PELVIS: Intraperitoneal space: Small volume of free pelvic fluid, low density. No free air. Bones/joints: Osteopenia. Degenerative change in lumbar spine. No acute fracture or dislocation. Soft tissues: Unremarkable. Vasculature: Atherosclerosis. No evidence of vascular injury. No aneurysm. Lymph nodes: Unremarkable. No enlarged lymph nodes. IMPRESSION: No acute traumatic findings. Electronically signed by: Edel Eduardo M.D. 11/05/24 22:[address] 11/05/24 19:53 Exam(s): CT CHEST With Contrast IV Amt: 91ML OPTIRAY 320 EXAM: CT Chest With Intravenous Contrast CLINICAL HISTORY: Reason for exam: fall, L chest pain. TECHNIQUE: Axial computed tomography images of the chest with intravenous contrast. CTDI is 38.03 mGy and DLP is 2118.22 mGy-cm. Automated exposure control was utilized for the study. A dose lowering technique was utilized adhering to the principles of ALARA. CONTRAST: Patient received 91ML OPTIRAY 320 of IV contrast COMPARISON: FINDINGS: Lungs: Linear subsegmental atelectasis in the lower lobes. No consolidation, contusion, or mass. Pleural space: Unremarkable. No pneumothorax. No significant effusion. Heart: Coronary artery atherosclerosis. No cardiomegaly or pericardial effusion. Mediastinum: Unremarkable. No mediastinal hematoma. Bones/joints: Osteopenia. Acute nondisplaced left scapular body fracture. No other fractures. No dislocation. Soft tissues: Unremarkable. Vasculature: Mild atherosclerosis of the thoracic aorta without aneurysm, dissection, or traumatic injury. Normal caliber main pulmonary. Lymph nodes: Unremarkable. No enlarged lymph nodes. IMPRESSION: Acute nondisplaced left scapular body fracture. No other acute traumatic findings. Electronically signed by: Edel Eduardo M.D. 11/05/24 22:[address] 11/05/24 19:53 Exam(s): CT FACIAL Without Contrast EXAM: CT Head and Maxillofacial Without Intravenous Contrast CLINICAL HISTORY: Reason for exam: fall, facial contusion. TECHNIQUE: Axial computed tomography images of the head/brain and face without intravenous contrast. CTDI is 38.03 mGy and DLP is 2118.22 mGy-cm. Automated exposure control was utilized for the study. A dose lowering technique was utilized adhering to the principles of ALARA. COMPARISON: No relevant prior studies available. FINDINGS: Brain: Unremarkable. No hemorrhage. No significant white matter disease. No edema. Ventricles: Unremarkable. No ventriculomegaly. Bones/joints: No acute fracture. Soft tissues: Prominent cervical lymph nodes. Sinuses: Chronic maxillary, ethmoid and sphenoid sinusitis. No acute sinusitis. Mastoid air cells: Unremarkable as visualized. No mastoid effusion. Orbits: Unremarkable as visualized. IMPRESSION: No evidence of acute facial bone pathology. Electronically signed by: Aileen Candelario MD 11/05/24 22:41 PM Forearm X-Ray 11/05/24 19:53 Exam(s): XR LEFT FOREARM, 2 views EXAM: XR Left Forearm, 2 Views CLINICAL HISTORY: Reason for exam: fall. TECHNIQUE: Frontal and lateral views of the left forearm. COMPARISON: No relevant prior studies available. FINDINGS: Bones/joints: Osteopenia. No acute fracture or dislocation. Soft tissues: Unremarkable. IMPRESSION: No acute findings in the left forearm. Electronically signed by: Edel Eduardo M.D. 11/05/24 22:16 PM Humerus X-Ray 11/05/24 19:53 Exam(s): XR LEFT HUMERUS, 2+ views EXAM: XR Left Humerus, 2 or More Views CLINICAL HISTORY: Reason for exam: fall. TECHNIQUE: Frontal and lateral views of the left humerus. COMPARISON: No relevant prior studies available. FINDINGS: Bones/joints: No acute fracture. No dislocation. Osteopenia. Soft tissues: Unremarkable. IMPRESSION: No acute osseous findings. Electronically signed by: Edel Eduardo M.D. 11/05/24 22:17 PM Code Status & VTE Plan Code Status Full code VTE Prophylaxis Plan VTE Prophylaxis will be ordered: Yes PG Care Time/CCT Total # of Minutes Spent Total Time Spent with Patient: Total time spent is greater than 50% in coordination of care (as documented) at patient's floor/unit and/or counseling patient: Coding Level of Care Code 69862 INT INP/OBS CARE 3/75MIN Diagnoses Closed left scapular fracture S42.115A Encounter type: initial encounter Fracture alignment: nondisplaced Scapula location: body Syncope and collapse R55 Raynauds phenomenon I73.00 Contusion of face S00.83XA Encounter type: initial encounter Fall W19.XXXA Encounter type: initial encounter (1) Closed left scapular fracture Encounter type: initial encounter Fracture alignment: nondisplaced Scapula location: body Qualified Code(s): S42.115A - Nondisplaced fracture of body of scapula, left shoulder, initial encounter for closed fracture (4) Contusion of face Encounter type: initial encounter Qualified Code(s): S00.83XA - Contusion of other part of head, initial encounter (5) Fall Encounter type: initial encounter Qualified Code(s): W19.XXXA - Unspecified fall, initial encounter
[2024-11-06] MEDS ORDERED: PHARMACIST DISCHARGE MED REC CONSULT PRN (01:31)
[2024-11-06] MEDS ORDERED: ALBUTEROL HFA 8 GM INHALER INH PRN (01:31)
[2024-11-06] MEDS: LIDOCAINE 5% 1 PATCH TD STA (01:49)
[2024-11-06 05:07] LABS: Basophils # (auto) 0.03 K/uL (0.00-0.20); Basophils % (auto) 0.5 %; Eosinophils # (auto) 0.14 K/uL (0.00-0.50); Eosinophils % (auto) 2.5 %; Hematocrit (blood only) 31.7 % (37.0-47.0); Hemoglobin 11.1 g/dl (12.0-16.0); Immature Granulocytes # (auto) 0.01 K/uL (0.01-0.20); Immature Granulocytes % (auto) 0.2 %; Lymphocytes # (auto) 1.21 K/uL (1.20-3.40); Lymphocytes % (auto) 21.7 %; Mean Corpuscular Hemoglobin 29.4 pg (25.0-34.0); Mean Corpuscular Volume 83.9 fL (80.0-100.0); Mean Platelet Volume 8.6 fL (9.4-12.4); Monocytes # (auto) 0.41 K/uL (0.11-0.59); Monocytes % (auto) 7.4 %; Neutrophils # (auto) 3.77 K/uL (1.40-6.50); Neutrophils % (auto) 67.7 %; Platelet Count 208 K/uL (130-400); RDW Coefficient of Variation 12.7 % (11.5-14.5); RDW Standard Deviation 38.6 fL (36.4-46.3); Red Blood Count 3.78 M/uL (4.20-5.40); White Blood Count 5.57 K/ul (4.8-10.8)
[2024-11-06 05:24] LABS: Albumin Level 3.8 gm/dl (3.4-5.0); BUN Creatinine Ratio 15.1 (10-20); Calcium 8.6 mg/dl (8.6-10.3); Chol HDL Ratio 2.7 (0-5); Creatinine Clr Calc Pharmacy 75.3 ml/min; Phosphorus 2.5 mg/dl (2.5-4.9); Potassium 3.5 mmol/L (3.5-5.1)
[2024-11-06] MEDS: ACETAMINOPHEN 325 MG TAB PO PRN (06:08)
[2024-11-06 07:25] LABS: Estimated Average Glucose 114 mg/dl; Hemoglobin A1C 5.6 % (4.5-5.6)
[2024-11-06] MEDS: ASPIRIN 81 MG ECTAB PO SCH (08:18)
[2024-11-06] MEDS: ZINC SULFATE 220 MG CAPSULE PO SCH (08:18)
[2024-11-06] MEDS: CHOLECALCIFEROL 25 MCG (1000 UNITS) TAB PO SCH (08:19)
[2024-11-06] MEDS: MULTIVITAMIN TAB PO SCH (08:19)
[2024-11-06] MEDS: CYANOCOBALAMIN (B-12) 500 MCG TABLET PO SCH (08:19)
[2024-11-06] MEDS ORDERED: METHYLCELLULOSE POWDER 454 GM JAR PO SCH (09:00)
--- NOTE | 2024-11-06 09:21 | Electrocardiogram Report ---
Test Reason : Blood Pressure : */* mmHG Vent. Rate : 67 BPM Atrial Rate : 67 BPM P-R Int : 140 ms QRS Dur : 84 ms QT Int : 392 ms P-R-T Axes : 65 34 49 degrees QTcB Int : 414 ms Normal sinus rhythm Nonspecific T wave abnormality RSR' or QR pattern in V1 suggests right ventricular conduction delay Abnormal ECG When compared with ECG of 06-Oct-2024 04:35, Otherwise no significant change Confirmed by Dalila Howe (Antonio) on 11/06/2024 9:20:45 AM Referred By: REFERRED SELF Confirmed By: Dalila Howe
--- NOTE | 2024-11-06 09:55 | CT Scan Report ---
CT shoulder LT w con CLINICAL HISTORY: Left shoulder pain following fall. COMPARISON STUDY: No previous studies for comparison. TECHNIQUE: Axial images of the left shoulder were obtained. Sagittal and coronal reformats were viewe d. Automated exposure control was utilized for the study. A dose lowering technique was utilized adh ering to the principles of ALARA. These images were reconstructed from the chest CT. FINDINGS: No proximal left humeral fracture is noted. Alignment of the left acromioclavicular and gle nohumeral joints is anatomic. There is an acute mildly displaced fracture of the left scapular body. Fracture is displaced 5 mm. No additional fractures are identified. No fractures are identified withi n visualized portions of the left ribs. No left pneumothorax is identified. IMPRESSION: 1. Acute mildly displaced left scapular body fracture. 2. No additional fractures within the left shoulder. Anatomic alignment of the left acromioclavicular and glenohumeral joints. ACT 112: Negative or not required by law. Electronically signed by: Felix Thomas M.D. 11/06/2024 9:54 AM
--- NOTE | 2024-11-06 09:58 | Neurology Consultation ---
Date of Consultation November 06, 2024 Assessment & Plan (1) Syncope and collapse: History of Present Illness Attending Physician: Meron Galan MD History of Present Illness pt this morning feeling well. back to herself. no falls or feeling dizzy. CT head and work up negative. left scauplar fx. pt felt little lightheaded prior to passing briefly. no tongue biting or bowel/bladder loss. chart reviewed. admission HPI: The patient was in her usual state of health until she woke around 6:40 AM by the alarm clock this morning, was getting out of bed to go to the bathroom. She stood up and immediately passed out and fell to the ground. heard her fall, went to see her, and she was easily able to be picked up and assisted to bed. When she tried to get up the second time began to the syncopal episode again. She rested in bed the rest of the morning, and then when she went to the bathroom later on again, she had a third episode of syncope. With the third episode, she complained of pain in her left upper arm and left shoulder blade area. She was then brought to the emergency department for assessment Allergies Allergy/AdvReac Type Severity Reaction Status Date / Time alendronate sodium Allergy Intermediate HEART Verified 11/06/24 08:00 BEATS REALLY FAST MUSCLE RELAXER Allergy Intermediate ? Verified 11/06/24 08:00 MEDICATION NAME, 1986 - FACE SWOLLEN , HIVES Home Medications Medication Instructions Recorded Confirmed Type aspirin 81 mg tablet,delayed 81 mg PO 3XWK 08/22/19 11/06/24 History release (Adult Low Dose Aspirin) cholecalciferol (vitamin D3) 50 2,000 units PO QAM 08/22/19 11/06/24 History mcg (2,000 unit) capsule multivitamin 1 tab PO DAILY 08/22/19 11/06/24 History cyanocobalamin (vitamin B-12) 1,000 mcg PO QAM 04/23/20 11/06/24 History 1,000 mcg tablet methylcellulose (laxative) 500 mg 500 mg PO DAILY 02/26/21 11/06/24 History tablet (Citrucel) albuterol sulfate 90 mcg/actuation 2 inh inhalation QID PRN shortness 03/31/23 11/06/24 Rx aerosol inhaler of breath or wheezing #8.5 grams trazodone 150 mg tablet 150 mg PO HS 03/13/24 12/30/24 History zinc 10 mg tablet 10 mg PO DAILY 05/04/24 11/06/24 History hydrochlorothiazide 12.5 mg tablet 6.25 mg (1/2 x 12.5 mg) PO QAM #45 06/05/24 11/06/24 Rx tabs Patient History Medical History History of uterine cancer Chronic obstructive pulmonary disease "MILD" Raynaud disease Back problem HERNIATED DISC LUMBAR SPINE Age related osteoporosis Vitamin D deficiency Mild asthma with allergic rhinitis without complication Surgical History History of colonoscopy History of D&C History of tooth extraction Hx of total hysterectomy with removal of both tubes and ovaries uterine cancer, surgical intervention only Family History Mother Breast cancer Brother Family history of diabetes mellitus Sister Family history of colon cancer Other No family history of adverse response to anesthesia Denies family history of Ovarian cancer Colorectal cancer Uterine cancer Social History Smoking Status: Never smoker Second Hand Exposure: No; Do You Dip or Chew Tobacco: No; Hx Alcohol Use: Yes Alcohol type: wine Hx Substance Use: No Preferred Language: Bhutanese Communication Ability: Effective Assistant Manager Pt Required: No Beliefs That Will Affect Care: None marital status: Current Living Situation: Spouse current occupational status: retired Feels Safe at Home: Yes Seatbelt Use: always Assistive Devices: Glasses Exam (Neuro) Physical Exam: HEENT: normocephalic grossly Neuro: Mental: AOx4, fluent speech, normal comprehension, no apraxia, no L/R confusion, no neglect CN: PERRL, Full EOM, symmetric face, midline T/U/P, grossly full ROM neck Motor: No abnormal movements, normal tone, 5/5 t/o LUE and b/l legs. LUE not examined, distally 5/5 t/o. Coord: intact DTR: 2+ sym b/l Gait: intact grossly Impression: 74 yo female with syncopal events, does not appears to be seizure. Majority of syncopal/fainting events are cardiogenic in nature (90%). CT head negative. Recommendations: not much to offer from neurology. continue cardiology work up no need for seizure work up. cancel EEG call again if new question. Chart reviewed I have spent more than 50% educating patient about potential diagnosis and neurological evaluation and coordinating care with patient's treatment team. Total time spent (including chart review and coordination of care): 50 min (this includes chart review). Results & Data Vital Signs (Past 12 Hours) Vital Signs Pulse Pulse Resp BP Pulse Ox Pulse Ox O2 Del Method 11/06/24 07:00 64 15 135/88 100 Room Air 11/06/24 06:59 64 11/06/24 01:31 97 11/06/24 01:31 78 17 128/87 98 Room Air 11/06/24 00:59 80 11/06/24 00:30 75 17 143/98 H 95 Room Air 11/05/24 23:00 70 17 108/87 96 Room Air O2 Del Method 11/06/24 07:00 11/06/24 06:59 11/06/24 01:31 Room Air 11/06/24 01:31 11/06/24 00:59 11/06/24 00:30 11/05/24 23:00 PG Care Time/CCT Total # of Minutes Spent Total Time Spent with Patient: Total time spent is greater than 50% in coordination of care (as documented) at patient's floor/unit and/or counseling patient: Coding Level of Care Code 69208 IN/OBS CONSULT LVL 3,45M Diagnoses Syncope and collapse R55
[2024-11-06 10:04] VITALS: TEMP 97.9
--- NOTE | 2024-11-06 10:40 | XRay Report ---
XR shoulder LT min 2V routine CLINICAL HISTORY: AP and transcapular, dx=pain TECHNIQUE: 3 views of the right shoulder were obtained. Comparison: Comparison is made to humerus radiographs 11/05/[address] shoulder 11/05/2024 FINDINGS: There is a fracture of the scapular body which is mildly displaced. Joint spaces are well-preserved. Soft tissue swelling is seen about the shoulder. The visualized portions of the lungs are clear. IMPRESSION: Mildly displaced scapular body fracture is again seen. ACT 112: Negative or not required by law. Electronically signed by: Joe Kauffman M.D. 11/06/2024 10:39 AM
--- NOTE | 2024-11-06 10:48 | Orthopedic Consultation ---
Date of Consultation November 06, 2024 Assessment & Plan (1) Pathological fracture of scapula due to osteoporosis: Findings discussed. Labs and imaging noted and reviewed. I reviewed the CT scan of the chest with the reformatted left shoulder images. X-rays of the left shoulder humerus and forearm. There is a minimally displaced scapular body fracture which does not involve the glenohumeral joint. There is no proximal humeral fracture or dislocation. There is no humeral fracture. She does have osteoporosis and therefore this is a pathological fracture. Additionally her vitamin D level is low and will be replenished. She is currently in between osteoporosis medications and a new medicine is in the process of being initiated. In regards to her left scapular fracture this is treated without surgery. She can wear a sling for comfort and gradually progress mobilization as tolerated. She will be here for further workup of her syncopal episodes. She may follow-up with me in my office as an outpatient in the next 10 to 14 days. Will help coordinate appointment. (2) Fall: (3) Syncope and collapse: History of Present Illness Attending Physician: Meron Galan MD History of Present Illness Mayra passed out twice yesterday morning at home. She fell twice. Once hitting her face and another time hitting her left shoulder. She was seen and evaluated in the emergency room and admitted by medicine for syncopal workup. She is right-hand dominant and denies prior history of left shoulder injuries. She complains of pain in the left arm and shoulder area. Allergies Allergy/AdvReac Type Severity Reaction Status Date / Time alendronate sodium Allergy Intermediate HEART Verified 11/06/24 08:00 BEATS REALLY FAST MUSCLE RELAXER Allergy Intermediate ? Verified 11/06/24 08:00 MEDICATION NAME, 1986 - FACE SWOLLEN , HIVES Home Medications Medication Instructions Recorded Confirmed Type aspirin 81 mg tablet,delayed 81 mg PO 3XWK 08/22/19 11/06/24 History release (Adult Low Dose Aspirin) cholecalciferol (vitamin D3) 50 2,000 units PO QAM 08/22/19 11/06/24 History mcg (2,000 unit) capsule multivitamin 1 tab PO DAILY 08/22/19 11/06/24 History cyanocobalamin (vitamin B-12) 1,000 mcg PO QAM 04/23/20 11/06/24 History 1,000 mcg tablet methylcellulose (laxative) 500 mg 500 mg PO DAILY 02/26/21 11/06/24 History tablet (Citrucel) albuterol sulfate 90 mcg/actuation 2 inh inhalation QID PRN shortness 03/31/23 11/06/24 Rx aerosol inhaler of breath or wheezing #8.5 grams trazodone 150 mg tablet 150 mg PO HS 01/19/24 11/06/24 History zinc 10 mg tablet 10 mg PO DAILY 05/04/24 11/06/24 History hydrochlorothiazide 12.5 mg tablet 6.25 mg (1/2 x 12.5 mg) PO QAM #45 06/05/24 11/06/24 Rx tabs Patient History Medical History History of uterine cancer Chronic obstructive pulmonary disease "MILD" Raynaud disease Back problem HERNIATED DISC LUMBAR SPINE Age related osteoporosis Vitamin D deficiency Mild asthma with allergic rhinitis without complication Surgical History History of colonoscopy History of D&C History of tooth extraction Hx of total hysterectomy with removal of both tubes and ovaries uterine cancer, surgical intervention only Family History Mother Breast cancer Brother Family history of diabetes mellitus Sister Family history of colon cancer Other No family history of adverse response to anesthesia Denies family history of Ovarian cancer Colorectal cancer Uterine cancer Social History Smoking Status: Never smoker Second Hand Exposure: No; Do You Dip or Chew Tobacco: No; Hx Alcohol Use: Yes Alcohol type: wine Hx Substance Use: No Preferred Language: Turkmen Communication Ability: Effective Barge Pilot Required: No Beliefs That Will Affect Care: None marital status: Current Living Situation: Spouse current occupational status: retired Feels Safe at Home: Yes Seatbelt Use: always Assistive Devices: Glasses Physical Exam Physical Exam: Bruising and abrasion left face. The left arm is not significantly swollen. Median radian and ulnar musculocutaneous axillary motor and sensory functions are intact. She has limited excursion with deltoid motor testing. There is full movement of the fingers wrist forearm rotation and near full movement of elbow. She has 5- out of 5 elbow flexion and extension strength. Shoulder range of motion is not able to be assessed secondary to pain. Tenderness midshaft area of the left humerus without bruising or swelling noted. Tenderness on the top of the left shoulder posterior and medial to the AC joint and also over the scapular spine area. She has some lesser tenderness over the lateral left shoulder. The clavicle is not tender. The skin is intact no bruising or swelling is noted. Sensation intact radial pulse is 1+. She can move both lower extremities and her right arm without difficulty. She is awake and alert. Results & Data Vital Signs (Past 12 Hours) Vital Signs Temp Pulse Pulse Resp BP Pulse Ox Pulse Ox 11/06/24 10:02 150/94 H 11/06/24 10:02 145/91 H 11/06/24 09:35 36.6 C 71 16 141/86 H 98 11/06/24 07:00 64 15 135/88 100 11/06/24 06:59 64 11/06/24 01:31 97 11/06/24 01:31 78 17 128/87 98 11/06/24 00:59 80 11/06/24 00:30 75 17 143/98 H 95 11/05/24 23:00 70 17 108/87 96 O2 Del Method O2 Del Method 11/06/24 10:02 11/06/24 10:02 11/06/24 09:35 Room Air 11/06/24 07:00 Room Air 11/06/24 06:59 11/06/24 01:31 Room Air 11/06/24 01:31 Room Air 11/06/24 00:59 11/06/24 00:30 Room Air 11/05/24 23:00 Room Air Laboratory Results Laboratory Results WBC 5.57 K/ul (4.8-10.8) 11/06/24 04:27 RBC 3.78 M/uL (4.20-5.40) L 11/06/24 04:27 Hgb 11.1 g/dl (12.0-16.0) L 11/06/24 04:27 Hct 31.7 % (37.0-47.0) L 11/06/24 04:27 MCV 83.9 fL (80.0-100.0) 11/06/24 04:27 MCH 29.4 pg (25.0-34.0) 11/06/24 04:27 MCHC 35.0 g/dL (32.0-36.0) 11/06/24 04:27 RDW Std Deviation 38.6 fL (36.4-46.3) 11/06/24 04:27 RDW Coeff of [place] 12.7 % (11.5-14.5) 11/06/24 04:27 Plt Count 208 K/uL (130-400) 11/06/24 04:27 MPV 8.6 fL (9.4-12.4) L 11/06/24 04:27 Immature Gran % (Auto) 0.2 % 11/06/24 04:27 Neut % (Auto) 67.7 % 11/06/24 04:27 Lymph % (Auto) 21.7 % 11/06/24 04:27 Rooks % (Auto) 7.4 % 11/06/24 04:27 Eos % (Auto) 2.5 % 11/06/24 04:27 Baso % (Auto) 0.5 % 11/06/24 04:27 Neut # (Auto) 3.77 K/uL (1.40-6.50) 11/06/24 04:27 Lymph # (Auto) 1.21 K/uL (1.20-3.40) 11/06/24 04:27 Rooks # (Auto) 0.41 K/uL (0.11-0.59) 11/06/24 04:27 Eos # (Auto) 0.14 K/uL (0.00-0.50) 11/06/24 04:27 Baso # (Auto) 0.03 K/uL (0.00-0.20) 11/06/24 04:27 Immature Gran # (Auto) 0.01 K/uL (0.01-0.20) 11/06/24 04:27 ESR 9 mm/hr (0-30) 11/06/24 04:27 PT 10.6 Seconds (9.0-12.0) 11/05/24 17:40 INR 1.0 (0.9-1.1) 11/05/24 17:40 APTT 25 Seconds (21-31) 11/05/24 17:40 PTT Ratio 0.9 11/05/24 17:40 Sodium 137 mmol/L (136-145) 11/06/24 04:27 Potassium 3.5 mmol/L (3.5-5.1) 11/06/24 04:27 Chloride 107 mmol/L (98-107) 11/06/24 04:27 Carbon Dioxide 24 mmol/L (21-32) 11/06/24 04:27 Anion Gap 6 (3-11) 11/06/24 04:27 BUN 8 mg/dl (6-23) 11/06/24 04:27 Creatinine 0.53 mg/dl (0.6-1.2) L 11/06/24 04:27 Est Cr Clr Drug Dosing 75.3 ml/min 11/06/24 04:27 eGFR 98.20 11/06/24 04:27 BUN/Creatinine Ratio 15.1 (10-20) 11/06/24 04:27 Glucose 105 mg/dl (70-99(Fasting)) H 11/06/24 04:27 Estimat Average Glucose 114 mg/dl 11/06/24 04:27 Hemoglobin A1c 5.6 % (4.5-5.6) 11/06/24 04:27 Calcium 8.6 mg/dl (8.6-10.3) 11/06/24 04:27 Phosphorus 2.5 mg/dl (2.5-4.9) 11/06/24 04:27 Total Bilirubin 0.5 mg/dl (0.2-1.0) 11/05/24 17:40 AST 20 U/L (13-39) 11/05/24 17:40 ALT 12 U/L (7-52) 11/05/24 17:40 Alkaline Phosphatase 45 U/L (34-104) 11/05/24 17:40 Troponin I High Sens 3.4 pg/ml (0-14) 11/05/24 17:40 Total Protein 7.3 gm/dl (6.0-8.3) 11/05/24 17:40 Albumin 3.8 gm/dl (3.4-5.0) 11/06/24 04:27 Globulin 3.1 gm/dl (2.5-4.0) 11/05/24 17:40 Albumin/Globulin Ratio 1.4 (0.9-2) 11/05/24 17:40 Triglycerides 91 mg/dl (0-150) 11/06/24 04:27 Cholesterol 174 mg/dl (0-200) 11/06/24 04:27 LDL Cholesterol, Calc 92 mg/dl 11/06/24 04:27 VLDL Cholesterol, Calc 18 mg/dl (0-30) 11/06/24 04:27 HDL Cholesterol 64 mg/dl 11/06/24 04:27 Cholesterol/HDL Ratio 2.7 (0-5) 11/06/24 04:27 25-OH Vitamin D Total 28.7 ng/ml (30-100) L 11/06/24 09:14 Urine Color Yellow 11/05/24 21:30 Urine Appearance Clear (Clear) 11/05/24 21:30 Urine pH 7.5 (4.5-7.5) 11/05/24 21:30 Ur Specific [place] 1.015 (1.000-1.030) 11/05/24 21:30 Urine Protein Negative (Negative) 11/05/24 21:30 Urine Glucose (UA) Negative (Negative) 11/05/24 21:30 Urine Ketones Negative (Negative) 11/05/24 21:30 Urine Blood Negative (Negative) 11/05/24 21:30 Urine Nitrite Negative (Negative) 11/05/24 21:30 Urine Bilirubin Negative (Negative) 11/05/24 21:30 Urine Urobilinogen Negative (Negative) 11/05/24 21:30 Ur Leukocyte Esterase Negative (Negative) 11/05/24 21:30 Lyme Disease Screen Negative (Negative) 11/06/24 04:27 Impressions Chest X-Ray 11/05/24 17:32 EXAM: Radiograph of the Chest 1 View INDICATION: Chest pain. TECHNIQUE: Frontal view of the chest. COMPARISON: 10/18/2024 FINDINGS: Lungs and pleural spaces: No consolidation or pulmonary edema. No pleural effusion or pneumothorax. Heart: Shape and configuration within normal limits allowing for technique. Mediastinum: Normal contour. Bones/joints: No fracture, erosion or dislocation. Soft tissues: No abnormality noted. No radiopaque foreign body noted. Upper abdomen: No abnormality noted. IMPRESSION: No abnormality noted. ACT 112: Negative or not required by law. Electronically signed by Jonelle Galvez 11-05-2024 6:[address] 11/05/24 19:42 Exam(s): CT C SPINE EXAM: CT Cervical Spine Without Intravenous Contrast CLINICAL HISTORY: Reason for exam: fall, pain. TECHNIQUE: Axial computed tomography images of the cervical spine without intravenous contrast. CTDI is 38.03 mGy and DLP is 2118.22 mGy-cm. Automated exposure control was utilized for the study. A dose lowering technique was utilized adhering to the principles of ALARA. COMPARISON: No relevant prior studies available. FINDINGS: Vertebrae: Unremarkable. No acute fracture. Discs/spinal canal/neural foramina: No acute findings. No spinal canal stenosis. Soft tissues: Prominent cervical lymph nodes. IMPRESSION: No evidence of acute cervical spine pathology. Electronically signed by: Aileen Candelario MD 11/05/24 22:[address] 11/05/24 19:42 Exam(s): CT HEAD Without Contrast EXAM: CT Head Without Intravenous Contrast CLINICAL HISTORY: Reason for exam: fall, syncope. TECHNIQUE: Axial computed tomography images of the head/brain without intravenous contrast. CTDI is 3803 mGy and DLP is 2118.22 mGy-cm. Automated exposure control was utilized for the study. A dose lowering technique was utilized adhering to the principles of ALARA. COMPARISON: No relevant prior studies available. FINDINGS: Brain: Unremarkable. No hemorrhage. No significant white matter disease. No edema. Ventricles: Unremarkable. No ventriculomegaly. Bones/joints: Unremarkable. No acute fracture. Soft tissues: Unremarkable. Sinuses: Unremarkable as chronic maxillary and ethmoid sinusitis. No acute sinusitis. Mastoid air cells: Unremarkable as visualized. No mastoid effusion. IMPRESSION: No evidence of acute intracranial pathology. Electronically signed by: Aileen Candelario MD 11/05/24 22:38 PM Abdomen/Pelvis CT 11/05/24 19:53 Exam(s): CT ABDOMEN + PELVIS With Contrast IV Amt: 91ML OPTIPRAY 320 EXAM: CT Abdomen and Pelvis With Intravenous Contrast CLINICAL HISTORY: Reason for exam: fall, L pain. TECHNIQUE: Axial computed tomography images of the abdomen and pelvis with intravenous contrast. CTDI is 38.03 mGy and DLP is 2118.22 mGy-cm. Automated exposure control was utilized for the study. A dose lowering technique was utilized adhering to the principles of ALARA. CONTRAST: Patient received 91ML OPTIPRAY 320 of IV contrast COMPARISON: 08/20/23 FINDINGS: Lung bases: A few pulmonary micronodules at the lung bases; no follow-up indicated per [employer] guidelines. Bibasilar subsegmental atelectasis. ABDOMEN: Liver: Stable subcentimeter hypodensities right liver, statistically cysts. No evidence of liver injury. Gallbladder and bile ducts: Unremarkable. No calcified stones. No ductal dilation. Pancreas: Unremarkable. No ductal dilation. No evidence of pancreatic injury. Spleen: Unremarkable. No evidence of splenic injury. Adrenals: Unremarkable. No evidence of adrenal injury. Kidneys and ureters: Unremarkable. No hydronephrosis. No evidence of renal injury. Stomach and bowel: No evidence of bowel injury. Diverticulosis. No obstruction. No mucosal thickening. PELVIS: Appendix: No evidence of appendicitis. Bladder: Unremarkable. No evidence of bladder injury. Reproductive: Unremarkable as visualized. ABDOMEN and PELVIS: Intraperitoneal space: Small volume of free pelvic fluid, low density. No free air. Bones/joints: Osteopenia. Degenerative change in lumbar spine. No acute fracture or dislocation. Soft tissues: Unremarkable. Vasculature: Atherosclerosis. No evidence of vascular injury. No aneurysm. Lymph nodes: Unremarkable. No enlarged lymph nodes. IMPRESSION: No acute traumatic findings. Electronically signed by: Edel Eduardo M.D. 11/05/24 22:[address] 11/05/24 19:53 Exam(s): CT CHEST With Contrast IV Amt: 91ML OPTIRAY 320 EXAM: CT Chest With Intravenous Contrast CLINICAL HISTORY: Reason for exam: fall, L chest pain. TECHNIQUE: Axial computed tomography images of the chest with intravenous contrast. CTDI is 38.03 mGy and DLP is 2118.22 mGy-cm. Automated exposure control was utilized for the study. A dose lowering technique was utilized adhering to the principles of ALARA. CONTRAST: Patient received 91ML OPTIRAY 320 of IV contrast COMPARISON: FINDINGS: Lungs: Linear subsegmental atelectasis in the lower lobes. No consolidation, contusion, or mass. Pleural space: Unremarkable. No pneumothorax. No significant effusion. Heart: Coronary artery atherosclerosis. No cardiomegaly or pericardial effusion. Mediastinum: Unremarkable. No mediastinal hematoma. Bones/joints: Osteopenia. Acute nondisplaced left scapular body fracture. No other fractures. No dislocation. Soft tissues: Unremarkable. Vasculature: Mild atherosclerosis of the thoracic aorta without aneurysm, dissection, or traumatic injury. Normal caliber main pulmonary. Lymph nodes: Unremarkable. No enlarged lymph nodes. IMPRESSION: Acute nondisplaced left scapular body fracture. No other acute traumatic findings. Electronically signed by: Edel Eduardo M.D. 11/05/24 22:[address] 11/05/24 19:53 Exam(s): CT FACIAL Without Contrast EXAM: CT Head and Maxillofacial Without Intravenous Contrast CLINICAL HISTORY: Reason for exam: fall, facial contusion. TECHNIQUE: Axial computed tomography images of the head/brain and face without intravenous contrast. CTDI is 38.03 mGy and DLP is 2118.22 mGy-cm. Automated exposure control was utilized for the study. A dose lowering technique was utilized adhering to the principles of ALARA. COMPARISON: No relevant prior studies available. FINDINGS: Brain: Unremarkable. No hemorrhage. No significant white matter disease. No edema. Ventricles: Unremarkable. No ventriculomegaly. Bones/joints: No acute fracture. Soft tissues: Prominent cervical lymph nodes. Sinuses: Chronic maxillary, ethmoid and sphenoid sinusitis. No acute sinusitis. Mastoid air cells: Unremarkable as visualized. No mastoid effusion. Orbits: Unremarkable as visualized. IMPRESSION: No evidence of acute facial bone pathology. Electronically signed by: Aileen Candelario MD 11/05/24 22:41 PM Forearm X-Ray 11/05/24 19:53 Exam(s): XR LEFT FOREARM, 2 views EXAM: XR Left Forearm, 2 Views CLINICAL HISTORY: Reason for exam: fall. TECHNIQUE: Frontal and lateral views of the left forearm. COMPARISON: No relevant prior studies available. FINDINGS: Bones/joints: Osteopenia. No acute fracture or dislocation. Soft tissues: Unremarkable. IMPRESSION: No acute findings in the left forearm. Electronically signed by: Edel Eduardo M.D. 11/05/24 22:16 PM Humerus X-Ray 11/05/24 19:53 Exam(s): XR LEFT HUMERUS, 2+ views EXAM: XR Left Humerus, 2 or More Views CLINICAL HISTORY: Reason for exam: fall. TECHNIQUE: Frontal and lateral views of the left humerus. COMPARISON: No relevant prior studies available. FINDINGS: Bones/joints: No acute fracture. No dislocation. Osteopenia. Soft tissues: Unremarkable. IMPRESSION: No acute osseous findings. Electronically signed by: Edel Eduardo M.D. 11/05/24 22:[address] 11/06/24 09:11 CT shoulder LT w con CLINICAL HISTORY: Left shoulder pain following fall. COMPARISON STUDY: No previous studies for comparison. TECHNIQUE: Axial images of the left shoulder were obtained. Sagittal and coronal reformats were viewed. Automated exposure control was utilized for the study. A dose lowering technique was utilized adhering to the principles of ALARA. These images were reconstructed from the chest CT. FINDINGS: No proximal left humeral fracture is noted. Alignment of the left acromioclavicular and glenohumeral joints is anatomic. There is an acute mildly displaced fracture of the left scapular body. Fracture is displaced 5 mm. No additional fractures are identified. No fractures are identified within visualized portions of the left ribs. No left pneumothorax is identified. IMPRESSION: 1. Acute mildly displaced left scapular body fracture. 2. No additional fractures within the left shoulder. Anatomic alignment of the left acromioclavicular and glenohumeral joints. ACT 112: Negative or not required by law. Electronically signed by: Felix Thomas M.D. 11/06/2024 9:54 AM Shoulder X-Ray 11/06/24 09:11 XR shoulder LT min 2V routine CLINICAL HISTORY: AP and transcapular, dx=pain TECHNIQUE: 3 views of the right shoulder were obtained. Comparison: Comparison is made to humerus radiographs 11/05/[address] shoulder 11/05/2024 FINDINGS: There is a fracture of the scapular body which is mildly displaced. Joint spaces are well-preserved. Soft tissue swelling is seen about the shoulder. The visualized portions of the lungs are clear. IMPRESSION: Mildly displaced scapular body fracture is again seen. ACT 112: Negative or not required by law. Electronically signed by: Joe Kauffman M.D. 11/06/2024 10:39 AM (2) Fall Encounter type: initial encounter Qualified Code(s): W19.XXXA - Unspecified fall, initial encounter
--- NOTE | 2024-11-06 11:23 | Magnetic Resonance Report ---
MR brain wo con CLINICAL HISTORY: syncope TECHNIQUE: Multiplanar and multisequence MR images of the brain were obtained without intravenous con trast. Comparison: None available at the time of this dictation. FINDINGS: No abnormal restricted diffusion is identified. The white matter is unremarkable. The ventricular sys tem is normal in appearance. No mass is seen. There is no mass effect or midline shift. There is no e vidence of acute intraparenchymal hemorrhage. No extra axial fluid collections are seen. The corpus c allosum, pituitary gland, and cerebellar tonsils appear grossly unremarkable. Flow voids of the major intracranial arterial vessels are identified. Sinus mucosal thickening is see n most prominent in the bilateral maxillary sinuses. IMPRESSION: No acute abnormalities. ACT 112: Negative or not required by law. Electronically signed by: Joe Kauffman M.D. 11/06/2024 11:21 AM
[2024-11-06] MEDS: METHYLCELLULOSE POWDER 454 GM JAR PO SCH (11:42)
--- NOTE | 2024-11-06 12:47 | Hospitalist Progress Note ---
Date of Service November 06, 2024 Assessment & Plan (1) Syncope and collapse: (2) Closed left scapular fracture: (3) Contusion of face: (4) Fall: Plan The patient is a 74-year-old female with past medical history including sigmoid diverticulitis, urinary tract infection, Raynaud's phenomenon, endometrial stromal neoplasm, hyponatremia and postmenopausal bleeding. She presents to the emergency department after having 3 successive syncopal episodes, in each case, she was either sitting and attempting to stand and walk, or with standing and trying to maintain her posture. With the third episode she complained of left shoulder and arm pain. Workup in the emergency department included a x-ray suggesting a left scapular body fracture. Syncope - three episodes in quick succession, each 1 was associated with trying to rise from sitting to standing, or maintaining once position standing I obtained further history and she got up this morning to go use the bathroom, when she first got up out of bed she fell and injured her shoulder that time she thinks, she got into the bathroom had emesis and diarrhea followed by 2 more syncopal episodes. She has some underlying IBS and has had these attacks of nausea and diarrhea a few times a year. She recently finished a course of outpatient antibiotics for something else may have affected her bowels. She had extensive testing today without any specific abnormalities found. It is highly likely that she had vasovagal syncope triggered by the emesis and diarrhea. Today she has no gastrointestinal symptoms and 8 breakfast and lunch well she is walking around without any lightheadedness. Orthostatic vital signs were negative. -brain MRI was normal, neurologist consulted did not seem seizure like recommended cancelling EEG -HS troponin was <4. TTE Was essentially normal. No abnormalities on telemetry -not suspicious for PE - no tachycardia or hypotension, not hypoxic, no chest pain or dyspnea -Lyme screen was negative, BUNNY also was sent at admission - pending, though I am not suspicious for rheumatologic problem. ESR was normal at 9. - considered orthostatic hypotension. orthostatic VS were negative today, but not done until well after presentation. takes trazodone 150 mg at HS and this can definitely cause orthostasis - she really needs it for sleep dose was recently increased from 100-150, I recommended her trying to cut this dose in half and see if 75 for work. Otherwise follow-up with her PCP and go back to the 100 mg dose Scapular fracture -reviewed shoulder CT and xrays this AM -lidoderm, APAP -Dr. Olivia consulted - recommends sling and follow up in office in 10-14d Other trauma evaluation in the ED: CT scan head negative CT scan abdomen and pelvis negative CT scan of chest showed acute nondisplaced left scapular body fracture CT scan of face was negative CT scan of cervical spine is negative Humerus x-ray negative Left femur x-ray negative Chest x-ray negative Mild hyponatremia - probably related to hypovolemia from vomiting and diarrhea. Resolved on today labs Na 137. her HCTZ is extremely low-dose 6.25 mg Mild anemia vs dilutional. Hg fairly stable 12-->11.9-->11.1 no evidence of traumatic bleeding safe for discharge home today, follow-up in primary care Admission and Anticipated Discharge Date Admission Date: November 06, 2024 Subjective left shoulder pain is ok has been up and ambulatory per RN without lightheadedness wants to go home Physical Exam 2 Physical Exam: PHYSICAL EXAMINATION Last 24h vital signs reviewed, see documentation in flowsheet General: comfortable appearing, no distress, somewhat frail HEENT: facial and periorbital ecchymoses, pupils round and equal, sclerae anicteric, no conjunctival injection, moist mucus membranes Lungs: Normal respiratory effort. Clear to auscultation bilaterally. No RRW Heart: Regular rate and rhythm, no murmurs. No JVD Abdomen: Soft, nontender, nondistended. Bowel sounds present. Extremities: Warm, dry, well-perfused. No extremity edema. left upper extremity in sling Neuro: Alert and oriented x 4, face symmetric, moves 4 extremities well Psych: Normal affect and behavior Results & Data Results & Data Vital Signs (Past 12 Hours) Vital Signs Temp Pulse Pulse Resp BP Pulse Ox Pulse Ox 11/06/24 11:51 69 18 137/104 H 96 11/06/24 10:02 150/94 H 11/06/24 10:02 145/91 H 11/06/24 09:35 97.9 F 71 16 141/86 H 98 11/06/24 07:00 64 15 135/88 100 11/06/24 06:59 64 11/06/24 01:31 97 11/06/24 01:31 78 17 128/87 98 11/06/24 00:59 80 O2 Del Method O2 Del Method 11/06/24 11:51 Room Air 11/06/24 10:02 11/06/24 10:02 11/06/24 09:35 Room Air 11/06/24 07:00 Room Air 11/06/24 06:59 11/06/24 01:31 Room Air 11/06/24 01:31 Room Air 11/06/24 00:59 Laboratory Results 11/06/24 04:27 11/06/24 04:27 Lyme screen was negative hemoglobin was unchanged at 11 vitamin D slightly low at 28.7 cholesterol panel is excellent PG Care Time/CCT Total # of Minutes Spent Total Time Spent with Patient: Total time spent is greater than 50% in coordination of care (as documented) at patient's floor/unit and/or counseling patient: Coding Level of Care Code None Diagnoses Syncope and collapse R55 Closed left scapular fracture S42.115A Encounter type: initial encounter Fracture alignment: nondisplaced Scapula location: body Contusion of face S00.83XA Encounter type: initial encounter Fall W19.XXXA Encounter type: initial encounter (2) Closed left scapular fracture Encounter type: initial encounter Fracture alignment: nondisplaced Scapula location: body Qualified Code(s): S42.115A - Nondisplaced fracture of body of scapula, left shoulder, initial encounter for closed fracture (3) Contusion of face Encounter type: initial encounter Qualified Code(s): S00.83XA - Contusion of other part of head, initial encounter (4) Fall Encounter type: initial encounter Qualified Code(s): W19.XXXA - Unspecified fall, initial encounter
[2024-11-06 14:48] VITALS: BP 144/92; PULSE 73; RESP 20; O2SAT 95
--- NOTE | 2024-11-06 16:16 | XCELERA ---
[id number]
--- NOTE | 2024-11-06 18:42 | Discharge Summary ---
Discharge Summary Date of Service November 06, 2024 Principal Dx & Hospital Course #1 = Principal Diagnosis (1) Syncope and collapse: (2) Closed left scapular fracture: (3) Contusion of face: (4) Fall: Plan The patient is a 74-year-old female with past medical history including sigmoid diverticulitis, urinary tract infection, Raynaud's phenomenon, endometrial stromal neoplasm, hyponatremia and postmenopausal bleeding. She presents to the emergency department after having 3 successive syncopal episodes, in each case, she was either sitting and attempting to stand and walk, or with standing and trying to maintain her posture. With the third episode she complained of left shoulder and arm pain. Workup in the emergency department included a x-ray suggesting a left scapular body fracture. Syncope - three episodes in quick succession, each 1 was associated with trying to rise from sitting to standing, or maintaining once position standing I obtained further history and she got up this morning to go use the bathroom, when she first got up out of bed she fell and injured her shoulder that time she thinks, she got into the bathroom had emesis and diarrhea followed by 2 more syncopal episodes. She has some underlying IBS and has had these attacks of nausea and diarrhea a few times a year. She recently finished a course of outpatient antibiotics for something else may have affected her bowels. She had extensive testing today without any specific abnormalities found. It is highly likely that she had vasovagal syncope triggered by the emesis and diarrhea. Today she has no gastrointestinal symptoms and 8 breakfast and lunch well she is walking around without any lightheadedness. Orthostatic vital signs were negative. -brain MRI was normal, neurologist consulted did not seem seizure like recommend ed cancelling EEG -HS troponin was <4. TTE Was essentially normal. No abnormalities on telemetry -not suspicious for PE - no tachycardia or hypotension, not hypoxic, no chest pain or dyspnea -Lyme screen was negative, BUNNY also was sent at admission - pending, though I am not suspicious for rheumatologic problem. ESR was normal at 9. - considered orthostatic hypotension. orthostatic VS were negative today, but not done until well after presentation. takes trazodone 150 mg at HS and this can definitely cause orthostasis - she really needs it for sleep dose was recently increased from 100-150, I recommended her trying to cut this dose in half and see if 75 for work. Otherwise follow-up with her PCP and go back to the 100 mg dose - can consider an outpatient ambulatory heart monitor, however I do not think this is indicated given that she has a totally normal echo and fits a clear pattern for vasovagal syncope Scapular fracture -reviewed shoulder CT and xrays this AM -lidoderm, APAP -Dr. Olivia consulted - recommends sling and follow up in office in 10-14d Other trauma evaluation in the ED: CT scan head negative CT scan abdomen and pelvis negative CT scan of chest showed acute nondisplaced left scapular body fracture CT scan of face was negative CT scan of cervical spine is negative Humerus x-ray negative Left femur x-ray negative Chest x-ray negative Mild hyponatremia - probably related to hypovolemia from vomiting and diarrhea. Resolved on today labs Na 137. her HCTZ is extremely low-dose 6.25 mg Mild anemia vs dilutional. Hg fairly stable 12-->11.9-->11.1 no evidence of traumatic bleeding safe for discharge home today, follow-up in primary care Notes For Next Care Provider Medication Changes From Visit recommended trying to reduce trazodone dose Admission HPI Per Admitting Provider The patient is a 74-year-old female with past medical history including sigmoid diverticulitis, urinary tract infection, Raynaud's phenomenon, endometrial stromal neoplasm, hyponatremia and postmenopausal bleeding. She presents to the emergency department after having 3 successive syncopal episodes, in each case, she was either sitting and attempting to stand and walk, or with standing and trying to maintain her posture. With the third episode she complained of left shoulder and arm pain. Workup in the emergency department included a x-ray suggesting a left scapular body fracture. Discharge Exam PHYSICAL EXAMINATION Last 24h vital signs reviewed, see documentation in flowsheet General: comfortable appearing, no distress, somewhat frail HEENT: facial and periorbital ecchymoses, pupils round and equal, sclerae anicteric, no conjunctival injection, moist mucus membranes Lungs: Normal respiratory effort. Clear to auscultation bilaterally. No RRW Heart: Regular rate and rhythm, no murmurs. No JVD Abdomen: Soft, nontender, nondistended. Bowel sounds present. Extremities: Warm, dry, well-perfused. No extremity edema. left upper extr emity in sling Neuro: Alert and oriented x 4, face symmetric, moves 4 extremities well Psych: Normal affect and behavior Discharge Plan Discharge Items Patient Disposition: Home - Self-Care Reason For Visit: SYNCOPE Discharge Diagnosis: Vasovagal syncope, left scapular fracture Activity: As commented below Lifting Comment: no lifting left arm, wear sling for comfort Non-emergency contact: Primary Care Provider and Surgeon Call non-emergency contact if: you have any medication questions and your symptoms worsen Follow-up/Referrals: Robin Manriquez DO [Primary Care Provider] - 11/16/24 2:45 pm (Hospital follow up scheduled November 16 at 2:45) Dom Olivia MD [Surgeon] - (Office will call Pt to schedule follow up) Diet: Regular Addtl Attending Provider Instructions: You were evaluated for syncope (passing out) brain MRI was negative for stroke, the neurologist did not think you need EEG because the episodes were not seizure-like EKG, heart monitoring, and Echo were reassuring. Your Echo (heart ultrasound) was essentially normal. This sounds like an episode of vasovagal (also called neurocardiogenic) syncope - one of the most common causes. It has to do with an excessive normal body reflex, triggered in this case by GI distress - nausea and diarrhea. No further testing is needed for this Consider reducing the trazodone, which can cause low blood pressure with standing, which can aggravate syncope and falls -try taking half a tab, or talk to your doctor about going back to your previous dose of 100 mg You had a lot of xrays and CT scans to look for injuries. These were negative excepting for left scapula (shoulder blade) fracture -Dr. Olivia recommends wearing a sling for comfort at this time and follow up with him in the office in 10-14 days , this will heal without surgery It may help to take probiotic for 2-4 weeks to help your bowels return to normal after recent antibiotics It was a pleasure taking care of you in the hospital, Meron Galan MD Pending Studies at Discharge: No Stand-Alone Forms: My [employer], Smoking Cessation Medications and DC Order Prescriptions: Continued hydrochlorothiazide 12.5 mg tablet 6.25 mg PO QAM Qty: 45 1RF cyanocobalamin (vitamin B-12) 1,000 mcg tablet 1,000 mcg PO QAM trazodone 150 mg tablet 150 mg PO HS aspirin [Adult Low Dose Aspirin] 81 mg tablet,delayed release (DR/EC) 81 mg PO 3XWK multivitamin tablet 1 tab PO DAILY cholecalciferol (vitamin D3) 2,000 unit capsule 2,000 units PO QAM albuterol sulfate 90 mcg/actuation HFA aerosol inhaler 2 inh inhalation QID PRN (Reason: shortness of breath or wheezing) Qty: 8.5 2RF Citrucel 500 mg Tablet 500 mg PO DAILY zinc 10 mg Tablet 10 mg PO DAILY Discharge Orders: Discharge Order (Routine); Ordered 11/06/24 Ordered By: Meron Galan Admission Data Admit Date/Time: 11/06/24 00:29 Attending Provider: Meron Galan Admit Provider: Nathen Pulliam Primary Care Provider: Robin Manriquez Other Providers: Nathen Pulliam; Sonido Christianson; Dom Olivia Other Interventions: Discharge Summary Assessment (RN) Last Done: 11/06/24 16:42 Hospital Stay Data Consultations 11/05/24 22:59 ED Decision to Admit Stat 11/06/24 01:31 Consult Neurology Routine 11/06/24 09:20 Consult Orthopedic Surgery Routine Diagnostic Imagining Performed 11/05/24 19:42 CT cervical spine wo con Stat CT head/brain wo con Stat 11/05/24 19:53 CT abd pelvis IV con only Stat CT chest diagnostic w con Stat CT face [CT facial bones wo con] Stat 11/06/24 01:31 MR brain wo con Routine 11/06/24 09:11 CT shoulder LT w con Stat Pending Results Patient Have Any Pending Studies at Discharge: No Discharge Instructions Given to Patient (Per Discharging Provider) You were evaluated for syncope (passing out) brain MRI was negative for stroke, the neurologist did not think you need EEG because the episodes were not seizure-like EKG, heart monitoring, and Echo were reassuring. Your Echo (heart ultrasound) was essentially normal. This sounds like an episode of vasovagal (also called neurocardiogenic) syncope - one of the most common causes. It has to do with an excessive normal body reflex, triggered in this case by GI distress - nausea and diarrhea. No further testing is needed for this Consider reducing the trazodone, which can cause low blood pressure with standing, which can aggravate syncope and falls -try taking half a tab, or talk to your doctor about going back to your previous dose of 100 mg You had a lot of xrays and CT scans to look for injuries. These were negative excepting for left scapula (shoulder blade) fracture -Dr. Olivia recommends wearing a sling for comfort at this time and follow up with him in the office in 10-14 days , this will heal without surgery It may help to take probiotic for 2-4 weeks to help your bowels return to normal after recent antibiotics It was a pleasure taking care of you in the hospital, Meron Galan MD Total Time Total Time Spent Total Time Spent (In Minutes): I personally spent: 45 minutes today on clinical care activities including: reviewing chart notes and vital signs reviewing labs reviewing studies discussed with orthopedic surgeon, bedside RN examining and counseling the patient writing orders writing prescriptions, discharge instructions documentation Coding Level of Care Code INP/OBS EV SAME DAY LV 3,85MIN Diagnoses Syncope and collapse R55 Closed left scapular fracture S42.115A Encounter type: initial encounter Fracture alignment: nondisplaced Scapula location: body Contusion of face S00.83XA Encounter type: initial encounter Fall W19.XXXA Encounter type: initial encounter
[2024-11-07] MEDS ORDERED: ENOXAPARIN INJ 40 MG/0.4 ML SYR SQ SCH (09:00)
[2024-11-07 12:38] LABS: Anti Nuclear Antibody Screen NEGATIVE (NEGATIVE)
== END 2024-11-06 17:22 | disposition home or self-care (01) ==
LOC: ED 17:06 → EDINP 17:06 → SUATTDRO 11-06 00:29 → 1E 11-06 01:31